=== PATIENT | female | born 1945 | race Caucasian/White ===

== ENCOUNTER 2025-09-26 14:59 | Inpatient (IN) ==
[2025-09-26 15:44] LABS: Hematocrit (blood only) 32.0 % (37.0-47.0); Hemoglobin 10.4 g/dL (12.0-16.0); Immature Granulocytes # (auto) 0.05 K/uL (0.01-0.20); Immature Granulocytes % (auto) 0.4 %; Mean Corpuscular Hemoglobin 30.4 pg (25.0-34.0); Mean Corpuscular Volume 93.6 fL (80.0-100.0); Platelet Count 212 K/uL (130-400); RDW Standard Deviation 60.5 fL (36.4-46.3); Red Blood Count 3.42 M/uL (4.20-5.40); White Blood Count 11.46 K/ul (4.8-10.8)
--- NOTE | 2025-09-26 16:07 | Emergency Department Note ---
Impression & Plan Hypotension, Cellulitis, Weakness, Leukocytosis, Elevated liver enzymes, Elevated troponin, Dialysis patient, Pleural effusion ED Provider Note NAME: KARLA RHODES AGE: 80 SEX: F : 1945 ARRIVES VIA: Walk-In INFORMANT: [Patient][daughters] ED PROVIDER(S): [Max Del Rosario MD] CHIEF COMPLAINT: Dr. Referred HISTORY OF PRESENT ILLNESS: Patient is an 80-year-old female who presents to the ER with diarrhea for a month. In the last several days, she has had foot pain and also some chills. She feels weak. She does attend dialysis Monday and Monday, she did miss today. She was last dialyzed 2 days ago. As the patient was not feeling well, she went to see her family physician. They were concerned about the possibility of sepsis and the patient was sent to our ER for evaluation. Patient does have A-fib and is on Eliquis. She has a history of colon cancer. The family is concerned that she may have recurrence of her cancer with all of her diarrhea. There is no cough or congestion. No chest pain. No complaints of abdominal pain. PMHx/PSHx/Social Hx: See Below PHYSICAL EXAM: GENERAL: Patient is in no acute distress. HEENT: No acute trauma, normocephalic atraumatic, mucous membranes moist, no nasal congestion. NECK: No stridor, no adenopathy, no meningismus, trachea is midline. LUNGS: Clear to auscultation bilaterally, no wheeze, no rhonchi, breath sounds equal. HEART: No obvious murmur, irregular rhythm with a normal rate. ABDOMEN: Soft, nontender, no peritonitis. EXTREMITIES: No cyanosis. There is a foul odor coming from the right foot. The right fifth toe is blackened in color. There is some erythema of the right foot extending up the right leg. The right foot is tender to palpate. NEUROLOGIC: Oriented x 3, no acute motor or sensory deficits, no focal weakness. SKIN: No jaundice, no diaphoresis. DIFFERENTIAL DIAGNOSIS: Sepsis or bacteremia, osteomyelitis, gangrene, electrolyte imbalance, among others. EMERGENCY DEPARTMENT PROCEDURES: Central line placement: This procedure was performed by me. The area for the procedure was cleansed sterilely and prepared for the procedure. Lidocaine was used for anesthesia. Sterile technique was employed. Ultrasound guidance was employed. Using the Seldinger technique, I was able to cannulate the femoral vein. No significant complications. There was no arterial stick during the procedure. All ports did flush well. The line was then sutured into position. MEDICAL DECISION MAKING: There is a mild leukocytosis, this would be consistent with infection. There is a mild anemia present although, this appears to be a chronic issue. There was a normal platelet count. No bandemia. INR was elevated at 2.1. Sodium was low but not in need of emergent correction. There was evidence for an elevated creatinine, this is consistent with her dialysis need. Luckily, the potassium was normal. The patient did have elevated liver enzymes, bilirubin was 3.4. No evidence for pancreatitis. ECG showed atrial fibrillation, no obvious ischemia. Cardiac enzyme testing is mildly elevated, this could be consistent with mismatch, her renal disease or potentially cardiac injury. Right foot CT scan did not show any osteomyelitis or gas within the soft tissues. Chest x-ray showed a large right pleural effusion. On exam, the patient was somewhat hypotensive and mildly tachycardic. She had a right lower extremity cellulitis. Patient was a very difficult IV stick. I did place a right femoral triple-lumen central line. Patient was given a 500 cc saline bolus. No additional saline was given despite her persistent hypotension as, she was at risk for heart failure given her dialysis need and the missed dialysis treatment today. Because of the persistent hypotension, she was placed on a norepinephrine drip. She received IV cefepime and IV daptomycin as antibiotic coverage. The patient appears to have sepsis from a right lower extremity cellulitis/infection. Her presentation is complicated by her dialysis need. She is going require further care within the hospital. Currently, as she is on a norepinephrine drip, I do think she requires ICU care. I did speak with the ICU attending, the patient was accepted to their floor. I spoke with the patient and family, I did speak with case management, the on- call hospitalist was consulted. Prior/Outside records/notes reviewed: None ECG per my interpretation: Indication was presumed sepsis. The ECG shows atrial fibrillation with a rate of 110. There is some baseline artifact. No obvious ST elevation, no PVCs. There is potential old septal infarct. QTc was 503. Continuous Cardiac Monitoring per my interpretation: An order was placed for continuous cardiac monitoring. The monitor shows a rate of 106 with atrial fibrillation. Imaging/x-ray results per my interpretation: Chest x-ray shows a large right pleural effusion. No CHF. Chronic Medical/Social conditions affecting care: Advanced age, on Eliquis, history of dialysis 3 times per week. Care/Management discussed with: Case management and the on-call hospitalist. ICU attending-Dr. Martinez Level of care consideration(s): After review of the information above and other included data: --I believe the patient requires escalation of care to admission Critical Care Note: I have personally spent 42 minutes of critical care time in the direct management of this patient. This includes bedside care, interpretation of diagnostic studies, and testing, discussion with consultants, patient, and family members, and other required patient management activities. This 42 minutes is in excess of all separately billable procedures. DISPOSITION: Admission Past Med/Surg History Problem List Pleural effusion (Acute) Dialysis patient (Acute) Elevated troponin (Acute) Elevated liver enzymes (Acute) Leukocytosis (Acute) Weakness (Acute) Cellulitis (Acute) Hypotension (Acute) Pleural effusion Shock Type 2 myocardial infarction due to shock Coagulopathy Hyperbilirubinemia Sepsis with multiple organ dysfunction (MOD) Severe sepsis Hydrothorax Toe necrosis 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 Hyperlipidemia Gout due to renal impairment Type II diabetes mellitus with peripheral angiopathy Atrial fibrillation ESRD on hemodialysis Medical History Closed left hip fracture Colon cancer COVID-19 Surgical History (Updated 09/26/25 @ 19:34 by Cristino Martins DO) History of repair of left hip joint History of partial colectomy Social History Smoking Status: Unknown if ever smoked Hx Alcohol Use: No Hx Substance Use: No Preferred Language: Turkish Communication Ability: Effective Dental Financial Coordinator Required: No Beliefs That Will Affect Care: None Current Living Situation: Spouse Feels Safe at Home: Yes Assistive Devices: Denture - Upper, Denture - Lower, Glasses and Walker Allergies Allergies Allergy/AdvReac Type Severity Reaction Status Date / Time No Known Allergies Allergy Verified 09/26/25 17:35 Home Meds Home Medications Medication Instructions Recorded Confirmed allopurinol 100 mg tablet 100 mg PO QAM 09/26/25 09/26/25 apixaban 5 mg tablet (Eliquis) 2.5 mg PO BID 09/26/25 09/26/25 cholecalciferol (vitamin D3) 25 25 mcg PO DAILY 09/26/25 09/26/25 mcg (1,000 unit) capsule (Vitamin D3) levothyroxine 75 mcg tablet 75 mcg PO DAILYBB 09/26/25 09/26/25 metoprolol tartrate 25 mg tablet 25 mg PO BID 09/26/25 09/26/25 simvastatin 40 mg tablet 40 mg PO QPM 09/26/25 09/26/25 sitagliptin phosphate 25 mg tablet 25 mg PO QAM 09/26/25 09/26/25 (Tasneem) Results & Data (ED) Vital Signs Vital Signs - 24 hr 09/26/25 15:05 09/26/25 15:34 09/26/25 15:50 Temperature 36.7 C Temperature Source Temporal Artery Scan Pulse Rate 75 99 H 98 H Pulse Rate [Apical] Respiratory Rate 18 11 L Respiratory Effort / Characteristics Non-Labored Spontaneous Respiratory Depth Normal Respiratory Pattern Regular Blood Pressure 94/46 L Blood Pressure [Left Arm] Blood Pressure Mean 62 Blood Pressure Mean [Left Arm] Blood Pressure Position [Left Arm] Pulse Oximetry 97 Oxygen Delivery Method Room Air Sepsis Recent Fever Within 48 Hours No Sepsis New/Unexplained Change in Mental Status N/A Sepsis Action Taken by Nursing No Action Required 09/26/25 17:01 09/26/25 17:24 09/26/25 17:30 Temperature Temperature Source Pulse Rate 100 H Pulse Rate [Apical] 94 H Respiratory Rate 27 H 26 H Respiratory Effort / Characteristics Spontaneous Respiratory Depth Respiratory Pattern Blood Pressure 77/53 L 80/41 L Blood Pressure [Left Arm] 81/48 L Blood Pressure Mean 61 66 Blood Pressure Mean [Left Arm] 59 Blood Pressure Position [Left Arm] Lying Pulse Oximetry 95 Oxygen Delivery Method Room Air Sepsis Recent Fever Within 48 Hours Sepsis New/Unexplained Change in Mental Status Sepsis Action Taken by Nursing 09/26/25 17:30 09/26/25 17:45 09/26/25 19:00 Temperature Temperature Source Pulse Rate 103 H 84 Pulse Rate [Apical] 84 Respiratory Rate 23 19 27 H Respiratory Effort / Characteristics Spontaneous Respiratory Depth Respiratory Pattern Blood Pressure 80/41 L 88/55 L Blood Pressure [Left Arm] 97/56 L Blood Pressure Mean 54 66 Blood Pressure Mean [Left Arm] 69 Blood Pressure Position [Left Arm] Lying Pulse Oximetry Oxygen Delivery Method Sepsis Recent Fever Within 48 Hours Sepsis New/Unexplained Change in Mental Status Sepsis Action Taken by [facility] Medications Current Medication List: was personally reviewed by me Laboratory Data Attestation: I reviewed the patient's lab results. 09/26/25 15:27 09/26/25 20:32 Lab Results 09/26/25 09/26/25 Range/Units 15:27 16:11 WBC 11.46 H (4.8-10.8) K/ul RBC 3.42 L (4.20-5.40) M/uL Hgb 10.4 L (12.0-16.0) g/dL Hct 32.0 L (37.0-47.0) % MCV 93.6 (80.0-100.0) fL MCH 30.4 (25.0-34.0) pg MCHC 32.5 (32.0-36.0) g/dL RDW Std Deviation 60.5 H (36.4-46.3) fL RDW Coeff of Leilani 18.1 H (11.5-14.5) % Plt Count 212 (130-400) K/uL MPV 11.8 (9.4-12.4) fL Immature Gran % (Auto) 0.4 % Neut % (Auto) 79.3 % Lymph % (Auto) 10.6 % Aiken % (Auto) 8.8 % Eos % (Auto) 0.4 % Baso % (Auto) 0.5 % Neut # (Auto) 9.07 H (1.40-6.50) K/uL Lymph # (Auto) 1.22 (1.20-3.40) K/uL Aiken # (Auto) 1.01 H (0.11-0.59) K/uL Eos # (Auto) 0.05 (0.00-0.50) K/uL Baso # (Auto) 0.06 (0.00-0.20) K/uL Immature Gran # (Auto) 0.05 (0.01-0.20) K/uL PT 21.5 H (9.0-12.0) Seconds INR 2.1 H (0.9-1.1) APTT 37 H (21-31) Seconds PTT Ratio 1.4 Sodium Cancelled 131 L Potassium Cancelled 4.1 Chloride Cancelled 97 L Carbon Dioxide Cancelled 26 Anion Gap Cancelled 8 BUN Cancelled 12 Creatinine Cancelled 5.22 H* Est Cr Clr Drug Dosing Cancelled 7.4 eGFR Cancelled 7.84 BUN/Creatinine Ratio Cancelled 2.3 L Glucose Cancelled 54 L Lactate 1.7 (0.4-2.0) mmol/L Calcium Cancelled 8.8 Phosphorus 3.8 (2.5-4.9) mg/dl Magnesium 1.8 (1.7-2.4) mg/dl Total Bilirubin Cancelled 3.4 H Direct Bilirubin 1.4 H (0-0.2) mg/dl AST Cancelled 62 H ALT Cancelled 21 Alkaline Phosphatase Cancelled 139 H Troponin I High Sens 59.1 H* (0-14) pg/ml Total Protein Cancelled 7.2 Albumin Cancelled 2.8 L Globulin Cancelled 4.4 H Albumin/Globulin Ratio Cancelled 0.6 L Lipase Cancelled 10 L Administered Medications Norepinephrine Bitartrate (Levophed/D5w) 4 mg in 250 mls @ 36.015 mls/hr IV .Q6H57M [facility]; Protocol Stop: 10/26/25 18:44 Last Titration: 09/27/25 01:09 Dose: 0.16 mcg/kg/min, 41.2 mls/hr Documented By: TP Co-signed By: ESG Titration: 09/26/25 23:34 Dose: 0.14 mcg/kg/min, 36 mls/hr Documented By: TP Co-signed By: ESG Titration: 09/26/25 21:33 Dose: 0.12 mcg/kg/min, 30.9 mls/hr Documented By: TP Co-signed By: ESG Titration: 09/26/25 19:36 Dose: 0.1 mcg/kg/min, 25.7 mls/hr Documented By: RICHARD Co-signed By: BS Titration: 09/26/25 19:14 Dose: 0.07 mcg/kg/min, 18 mls/hr Documented By: kmc Co-signed By: RICHARD Admin: 09/26/25 18:38 Dose: 0.05 mcg/kg/min, 12.9 mls/hr Documented By: cr Co-signed By: KEVIN Vasopressin 20 units/ Sodium (Chloride) 101 mls @ 12.12 mls/hr IV .Q8H20M MARIANELA Stop: 10/27/25 00:14 Last Admin: 09/27/25 00:25 Dose: 0.04 unit/min, 12.1 mls/hr Documented By: TP Co-signed By: ANA Miscellaneous (Icu Protocol For Hyperglycemia) 1 each N/A ACHS MARIANELA Stop: 09/28/25 20:59 Last Admin: 09/26/25 21:24 Dose: 1 each Documented By: TP Simvastatin (Simvastatin 40 Mg Tab) 40 mg PO QPM MARIANELA Stop: 10/26/25 20:59 Last Admin: 09/26/25 21:17 Dose: Not Given Documented By: TP Discontinued Medications Dextrose (Dextrose 50% 50 Ml Syringe) Confirm Administered Dose 50 ml IV .STK- MED ONE Stop: 09/26/25 21:23 Last Admin: 09/26/25 21:41 Dose: Not Given Documented By: TP Dextrose (Dextrose 50% 50 Ml Syringe) 50 ml IV ONCE ONE Stop: 09/26/25 21:24 Last Admin: 09/26/25 21:23 Dose: 50 ml Documented By: TP Cefepime HCl (Maxipime 2000mg) 2,000 mg in 20 mls @ 5 mls/min IV NOW STA; Protocol Stop: 09/26/25 15:57 Last Admin: 09/26/25 17:31 Dose: 5 mls/min Documented By: cr Sodium Chloride (Nss) 1,000 mls @ 999 mls/hr IV .Q1H1M ONE Stop: 09/26/25 16:54 Last Admin: 09/26/25 17:37 Dose: Not Given Documented By: KEVIN Sodium Chloride (Nss) 500 mls @ 999 mls/hr IV .Q31M ONE Stop: 09/26/25 16:33 Last Infusion: 09/26/25 18:49 Dose: Infused Documented By: cr Admin: 09/26/25 17:32 Dose: 999 mls/hr Documented By: cr Daptomycin 475 mg/ Syringe 9.5 mls @ 4.75 mls/min IV NOW ONE; Protocol Stop: 09/26/25 17:49 Last Admin: 09/26/25 18:42 Dose: 4.75 mls/min Documented By: [facility] [place]comycin HCl (Vancomycin Hcl / Nss) 1,000 mg in 270 mls @ 200 mls/hr IV 2100 MARIANELA Stop: 09/26/25 23:59 Last Infusion: 09/26/25 22:39 Dose: Infused Documented By: Admin: 09/26/25 21:18 Dose: 200 mls/hr Documented By: TP Albumin Human (Albumin 5%) 250 mls @ 500 mls/hr IV ONE ONE Stop: 09/26/25 21:41 Last Infusion: 09/26/25 22:01 Dose: Infused Documented By: Admin: 09/26/25 21:31 Dose: 500 mls/hr Documented By: TP Sodium Chloride (Nss) 250 mls @ 999 mls/hr IV .Q16M ONE Stop: 09/26/25 23:17 Last Infusion: 09/26/25 23:16 Dose: Infused Documented By: Admin: 09/26/25 23:00 Dose: 999 mls/hr Documented By: TP Miscellaneous (Stat Iv Infusion Titration Per Protocol) 1 each N/A NOW STA Stop: 09/26/25 18:32 Last Admin: 09/26/25 18:42 Dose: 1 each Documented By: [facility] [place] Data Radiologist's Impression: Chest X-Ray 09/26/25 15:53 Clinical History: Sepsis Technique: A frontal view of the chest was obtained Comparison is made to the prior examination dated 10/25/2021 Findings: There is new right mid and lower lung opacity, consistent with atelectasis or a combination of atelectasis and pneumonia. The heart is mildly enlarged. No left pleural effusion or pneumothorax is seen. There is a new large right pleural effusion. There is suspected mild pulmonary edema No fracture is noted. There is a right subclavian vascular stent Impression: 1. Large right pleural effusion with associated right lung atelectasis. Concurrent pneumonia cannot be excluded 2. Cardiomegaly and mild pulmonary edema ACT 112: Positive. There are findings on this exam that require communication between the performing entity and the patient following Patient Test Result Information Act ([place] ACT 112) guidelines. Electronically signed by Dandy Suárez 09-26-2025 7:[address] 09/26/25 16:03 CT of the right foot without contrast Technique: Noncontrast axial images of the right foot. Coronal and sagittal reformatted images made available for review No fractures or dislocations identified on this exam. Advanced degenerative changes of the midfoot and ankle. Diffuse vascular calcifications present. Diffuse soft tissue swelling about the foot. Impression: No acute osseous pathology Degenerative changes of the midfoot and ankle Diffuse vascular calcifications findings may represent small vessel disease in the diabetic patient. Clinical correlation with arterial Doppler ultrasound and pulse exam recommended. Electronically signed by Timbo Evans 09-26-2025 8:21 PM Discharge Plan Visit Data Chief Complaint: Referred by Doctor Stated Complaint: POSSIBLE INFECTION?, BLACK TARRY STOOL ED Provider: Max Del Rosario Discharge Problem: Hypotension, Cellulitis, Weakness, Leukocytosis, Elevated liver enzymes, Elevated troponin, Dialysis patient, Pleural effusion Patient Disposition: Admitted As Inpatient Condition: Serious Discharge Instructions Interventions: ED Discharge Assessment Last Done: 09/26/25 20:00 Discharge Problem: Hypotension Qualifiers: Hypotension type: unspecified hypotension type Qualified Code(s): I95.9 - Hypotension, unspecified Cellulitis Qualifiers: Site of cellulitis: extremity Site of cellulitis of extremity: lower extremity Laterality: right Qualified Code(s): L03.115 - Cellulitis of right lower limb Leukocytosis Qualifiers: Leukocytosis type: unspecified Qualified Code(s): D72.829 - Elevated white blood cell count, unspecified
[2025-09-26] MEDS: CEFEPIME 2000MG 2,000 MG/20 ML SYR IV STA (17:31)
[2025-09-26] MEDS: SODIUM CHLORIDE 0.9% 500 ML IV ONE (17:32)
[2025-09-26] MEDS: SODIUM CHLORIDE 0.9% 1,000 ML IV ONE (17:37)
[2025-09-26 17:53] LABS: Albumin Level 2.8 gm/dl (3.4-5.0); Anion Gap 8.0 (3-11); Bilirubin,Total 3.4 mg/dl (0.2-1.0); Calcium 8.8 mg/dl (8.6-10.3); Carbon Dioxide 26.0 mmol/L (21-32); Chloride 97.0 mmol/L (98-107); Magnesium 1.8 mg/dl (1.7-2.4); Potassium 4.1 mmol/L (3.5-5.1); Sodium 131.0 mmol/L (136-145)
[2025-09-26 17:57] LABS: INR 2.1 (0.9-1.1); Partial Thromboplastin Time 37 Seconds (21-31); Prothrombin Time 21.5 Seconds (9.0-12.0)
[2025-09-26 18:01] LABS: Alanine Aminotransferase 21.0 U/L (7-52); Albumin Globulin Ratio 0.6 (0.9-2); Alkaline Phosphatase 139.0 U/L (34-104); Blood Urea Nitrogen 12.0 mg/dl (6-23); Creatinine Clr Calc Pharmacy 7.4 ml/min; Globulin 4.4 gm/dl (2.5-4.0); Glucose 54.0 mg/dl (70-99(Fasting)); Lipase 10.0 U/L (11-82); Total Protein 7.2 gm/dl (6.0-8.3)
[2025-09-26] MEDS: NOREPINEPHRINE/D5W 4 MG/250 ML PLCT IV SCH (18:38)
[2025-09-26] MEDS: DAPTOmycin 475 MG in SYRINGE 0 ML IV ONE (18:42)
[2025-09-26] MEDS: STAT IV Infusion **Titration per Protocol STA (18:42)
--- NOTE | 2025-09-26 19:25 | XRay Report ---
Clinical History: Sepsis Technique: A frontal view of the chest was obtained Comparison is made to the prior examination dated 10/25/2021 Findings: There is new right mid and lower lung opacity, consistent with atelectasis or a combination of atelectasis and pneumonia. The heart is mildly enlarged. No left pleural effusion or pneumothorax is seen. There is a new large right pleural effusion. There is suspected mild pulmonary edema No fracture is noted. There is a right subclavian vascular stent Impression: 1. Large right pleural effusion with associated right lung atelectasis. Concurrent pneumonia cannot be excluded 2. Cardiomegaly and mild pulmonary edema ACT 112: Positive. There are findings on this exam that require communication between the performing entity and the patient following Patient Test Result Information Act ([place] ACT 112) guidelines. Electronically signed by Dandy Suárez 09-26-2025 7:24 PM
--- NOTE | 2025-09-26 19:28 | History & Physical Report ---
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: Plan In summary this is a an 80-year-old female who presented from their PCPs office by referral found to have severe sepsis with multiple organ dysfunction admitted to the intensive care unit for continued care #Severe Sepsis with MOD // Left 5th toe necrosis // Type II CA secondary to shock // Coagulopathy // Hyperbilirubinemia Notable leukocytosis, tachypnea, presumed hypoxia given the patient's clinical appearance, tachycardia, persistent hypotension; suspected source to primarily be the right fifth toe as further discussed below; does have notable hydrothorax as discussed further below, however underlying pneumonia cannot be excluded though patient does not present with symptoms typical of a community-acquired pneumonia making this less likely; in the emergency department the patient was given a 500 mL liter intravenous fluid bolus though no further fluids were administered given the patient is dependent on hemodialysis for volume control, subsequently was started on norepinephrine - Nursing to notify attending physician of maintained MAP of less than 65 mmHg - Continue with volume resuscitation guided by enterer consultation - Start vancomycin with pharmacy consultation - Start cefepime 2 g IV every 8 hours - Blood cultures pending - Follow daily CMP, CBC with differential, magnesium, phosphorus Additional testing pending including direct bilirubin measure, fibrinogen, troponin trend - Abdominal US pending Pending interpretation of patient's CT foot to guide further consultation needs for definitive management, there is no indication for emergent surgery at this time as the patient's exam is not consistent with necrotizing fasciitis or another life-threatening surgical condition Air Hammer Stripper consulted #Right hydrothorax // Perioral cyanosis Plain film of the patient's chest did reveal right-sided hydrothorax; clinically the patient appears to be hypoxic in the emergency department, unfortunately pulse oximetry is not able to adequately measure the patient's oxygen saturation given the peripheral arterial disease, diminished volume secondary to chronic diarrhea, in addition to their tachycardia Pending CT chest without contrast Maintain O2 saturation greater than 90% if pulse oximetry is able to be established; patient does not have any long-term medical conditions that would require judicious use of oxygen supplementation to avoid hypercapnic respiratory failure #Chronic diarrhea The patient is been struggling with chronic diarrhea for greater than 2 months, resulting in significant intravascular volume depletion; unclear cause at this time, not likely to be infectious given the duration of symptoms; could be related to the patient's allopurinol, but unable to determine the duration of medical treatment with this medication; at this time, primarily focus on supportive care with respect to this, volume resuscitation as above, and further diagnostic testing to follow based on clinical course #ESRD on HD Established on hemodialysis Mondays, Wednesdays, Fridays; not established with a shell sieve operator who practices at this facility Consult nephrology for assistance with scheduling hemodialysis #Type II diabetes mellitus with peripheral angiopathy No recent hemoglobin A1c measure in our system; follow glycemic protocol in ICU; hold home medication regimen A1c level pending History of Present Illness Chief Complaint: Right fifth toe injury Primary Care Provider: NO PCP Ms. Mahmood is an 80-year-old female Whose active medical conditions include end-s tage renal disease established on hemodialysis M/W/F, hypothyroidism, heart failure with preserved ejection fraction and atrial fibrillation, type 2 diabetes mellitus with peripheral angiopathy who presents to the [facility] on 09/26 by referral of their primary care physician due to a significant right toe injury. The patient describes approximately 3 weeks prior to their current presentation they were being evaluated by their wound physician for bilateral lower extremity chronic ulcerations when there was noted to be a laceration along the medial aspect of the left fifth phalange, the physician at that time did not express any significant serum related to this and it remained without any direct management. The next evaluation of this injury took place on the day of pr esentation at her primary care physician's office when it was found to be frankly necrotic. At the time my evaluation the patient denies any pain associated with it. They do not recall any specific injury. The patient also describes chronic diarrhea has been ongoing from greater than 2 months; they were recently evaluated at an emergency department from an outside hospital system that did not yield any significant diagnostic results other than a positive Hemoccult stool per family report. The patient does have a history of colon cancer with previous colon resection in 2014 without any subsequent radiation or adjuvant chemotherapy. The patient at the time of my exam denies any recent hematochezia, melanotic stool, clot passage. They deny any abdominal pain, bloating, early satiety. They do have daily nausea primarily occurring in the morning. This is sometimes associated with a small amount of bilious emesis, but this is infrequent and irregular. The patient also notes feeling acutely short of breath which began on the morning of presentation, it was also noted by her daughter who is present at bedside when she first spoke with the patient today, she was notably dyspneic wi th conversation. The patient denies any recent progressive or sudden onset cough, congestion, hemoptysis, orthopnea, platypnea, lower extremity edema. Allergies Allergy/AdvReac Type Severity Reaction Status Date / Time No Known Allergies Allergy Verified 09/26/25 17:35 Home Medications Medication Instructions Recorded Confirmed Type allopurinol 100 mg tablet 100 mg PO QAM 09/26/25 09/26/25 History apixaban 5 mg tablet (Eliquis) 2.5 mg PO BID 09/26/25 09/26/25 History cholecalciferol (vitamin D3) 25 25 mcg PO DAILY 09/26/25 09/26/25 History mcg (1,000 unit) capsule (Vitamin D3) levothyroxine 75 mcg tablet 75 mcg PO DAILYBB 09/26/25 09/26/25 History metoprolol tartrate 25 mg tablet 25 mg PO BID 09/26/25 09/26/25 History simvastatin 40 mg tablet 40 mg PO QPM 09/26/25 09/26/25 History sitagliptin phosphate 25 mg tablet 25 mg PO QAM 09/26/25 09/26/25 History (Denveruvia) Past Med/Surg History Problem List (Updated 09/26/25 @ 19:42 by Cristino Martins DO) Type 2 myocardial infarction due to shock Coagulopathy Hyperbilirubinemia Sepsis with multiple organ dysfunction (MOD) Severe sepsis Hydrothorax Toe necrosis 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 Hyperlipidemia Gout due to renal impairment Type II diabetes mellitus with peripheral angiopathy Atrial fibrillation ESRD on hemodialysis Medical History (Updated 09/26/25 @ 19:42 by Cristino Martins DO) Closed left hip fracture Colon cancer COVID-19 Surgical History (Updated 09/26/25 @ 19:34 by Peter N Cass, DO) History of repair of left hip joint History of partial colectomy Social History Smoking Status: Former smoker Preferred Language: Nepali Feels Safe at Home: Yes Review of Systems Review of Systems: Review of cardiovascular, pulmonary, constitutional, gastrointestinal, genitourinary, neurologic, musculoskeletal systems was unremarkable except for pertinent positive and negative findings discussed above Physical Exam Physical Exam: General: Elderly female in mild acute distress Vital Signs: Reviewed; mean arterial pressure persistently less than 60 mmHg; heart rate variable in the range of 90 to 110 bpm with irregular RR interval noted on telemetry; pulse oximetry not able to adequately assess oxygen saturation due to inadequate arterial pressure; tachypneic with a respiratory rate in the range of 22-31 RPM HEENT: Scleral icterus; pupils equally round and reactive to light; extraocular motion intact; dry mucous membranes Neck: Flattened jugular veins Pulmonary: Symmetric chest wall excursion without restriction; absent air movement throughout the entire right lung field, air movement is present throughout the left field without associated abnormal lung sounds Cardiovascular: Tachycardic rate with irregular rhythm, murmur present associated with AV fistula without additional murmurs, rubs, or gallops; bilateral radial and posterior tibial pulse 1+; delayed capillary refill in all nailbeds with cool extremities; right brachial AV fistula with palpable thrill and audible bruit; right femoral central venous catheter with some oozing around the access site but otherwise without concerning findings Gastrointestinal: Soft, protuberant; nontender; low-frequency normal pitch bowel sounds throughout Neurologic: Cranial nerves II through XII grossly intact; no discernible focal weakness no paresthesia though with general anasarca Skin: Left fifth phalange E distal of the PIP is frankly necrotic, cool to touch, without tenderness; along the medial aspect there is a linear laceration with coagulated blood without active bleeding; there is extended erythema involving the adjacent fourth toe without tenderness to palpation nor radiating heat; there is no appreciable lymphangitis of the affected extremity; jaundice to the mid chest Results & Data Results & Data Vital Signs (Past 12 Hours) Vital Signs Temp Pulse Pulse Resp BP BP Pulse Ox 09/26/25 19:00 84 27 H 97/56 L 09/26/25 17:45 84 19 88/55 L 09/26/25 17:30 103 H 23 80/41 L 09/26/25 17:30 80/41 L 09/26/25 17:24 100 H 26 H 77/53 L 09/26/25 17:01 94 H 27 H 81/48 L 95 09/26/25 15:50 98 H 09/26/25 15:34 99 H 11 L 09/26/25 15:05 36.7 C 75 18 94/46 L 97 O2 Del Method 09/26/25 19:00 09/26/25 17:45 09/26/25 17:30 09/26/25 17:30 09/26/25 17:24 09/26/25 17:01 Room Air 09/26/25 15:50 09/26/25 15:34 09/26/25 15:05 Room Air Laboratory Results Leukocytosis of 11.46 with a neutrophilic predominance Hemoglobin 10.4 with no previously established baseline available for review PT 21.5, INR 2.1, APTT 37 Relatively unremarkable BMP except for creatinine of 5.22 Total bilirubin 3.4 with direct bilirubin measure pending; AST 62, ALT 21, alkaline phosphatase 139 Lactate 1.7 Initial troponin measure of 59.1 Diagnostic Findings Portable chest film with right-sided hydrothorax, cardiomegaly and vascular congestion CT foot without intravenous contrast is still pending interpretation ECG Additional Comments: Irregular RR interval with rapid rate; leftward axis; difficult to appreciate R wave progression given artifact; no ischemic changes noted consistent with atrial fibrillation with rapid ventricular response Code Status & VTE Plan Code Status Conditional code; no intubation VTE Prophylaxis Plan VTE Prophylaxis will be ordered: No Reason for no VTE drug order: Contraindicated PG Care Time/CCT Total # of Minutes Spent Total Time Spent with Patient: Total time spent is greater than 50% in coordination of care (as documented) at patient's floor/unit and/or counseling patient: Coding Level of Care Code 49941 INT INP/OBS CARE 375MIN Diagnoses Sepsis with multiple organ dysfunction (MOD) A41.9; R65.20 Severe sepsis A41.9; R65.20 Toe necrosis I96 Type 2 myocardial infarction due to shock R57.9; I21.A1 Coagulopathy D68.9 Hyperbilirubinemia E80.6 Hydrothorax J94.8 ESRD on hemodialysis N18.6; Z99.2 Longstanding persistent atrial fibrillation I48.11 Atrial fibrillation type: longstanding persistent Type II diabetes mellitus with peripheral angiopathy E11.51 Mixed hyperlipidemia E78.2 Hyperlipidemia type: mixed hyperlipidemia Chronic gout due to renal impairment without tophus, unspecified site [id number] Gout site: unspecified site Chronicity: chronic 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
--- NOTE | 2025-09-26 19:54 | Critical Care Consultation ---
Date of Consultation September 26, 2025 Assessment & Plan (1) Shock: (2) Type 2 myocardial infarction due to shock: (3) Sepsis with multiple organ dysfunction (MOD): (4) Pleural effusion: (5) Atrial fibrillation: (6) ESRD on hemodialysis: Plan Reason Critically Ill: 80 YOF with ESRD - presents hypotensive with concern of septic shock with multiorgan dysfunction what appears as new right sided pleural effusion, on Eliquis for Afib. Requiring vasopressor support. Neuro - No acute needs CAM ICU: NEGATIVE - Continue with supportive care- follow for ICU delirium or metabolic encephalopathy from shock - Frequent re-orientation, attempt to maintain normal sleep wake cycle Cardiac - Shock with multiorgan dysfunction, Hx: Afib with chronic DOAC, heart murmur, HTN - Shock with multi organ dysfunction- elevated renal function, lungs- oxygen need, heart- vasopressor support and elevated troponin, liver- elevated LFTs - Multifactorial at this time is likely with primary concern for sepsis secondary to foot ulceration- however likely compounded with some hypovolemia with hx of diarrhea and recent decrease oral intake, - She received 1.5L crystalloid in ER- will re-evaluate for volume responsiveness with bedside POCUS, and can consider NICOM- cautious volume resuscitation will be employed with her history of ESRD, and pleural effusion - consider further volume challenge with albumin - Continue with vasopressor support to maintain MAPS > 65 - Lactate negative - Bedside POCUS- without pericardial effusion, squeeze does not appear significantly reduced however limited secondary to technique/machine/ and no comparison, IVC collapsable, LV hyperdynamic, - ECHO in am to eval cardiac function and valve - Troponin elevation likely demand in setting of shock and renal function - ECG without evidence of STEMI - Afib- will hold her Eliquis- until procedural need is identified or completed specifically thoracentesis- last dose 09/26 @1000 am- consider heparin infusion in am. - hold BB while on vasopressors- if rate control needed- will use amiodarone - Consider obtaining HAO on right once erythema decreases and better controlled infection Respiratory - Hypoxic respiratory failure, Pleural effusion - Hypoxic respiratory failure with possibly new right pleural effusion as we have no recent records/imaging on this patient - Right sided pleural effusion with compressive atelectasis - will hold her apixaban at this time as may benefit from not only diagnostic but likely therapeutic thora- moderate to large right sided effusion - Adjust oxygen therapy for Spo2 94% or greater GI - Elevated LFT, Elevated bili, mild ascites, Diarrhea. HX: Colon cancer - resection only - At this time with no recent labs for review or reported history of liver failure/cirrhosis- her AST is 62 Alk Po4 139, tBili- 3.4 - possibly reactive secondary to septic shock or VADIM- she is not encephalopathic - Agree with abdominal ultrasound with Doppler - trend LFTs - abdomen exam is nonacute and lactate is negative RENAL/LYTES - ESRD- anuric on dialysis MWF, - Patient dialysis MWF- dialysis fistula in RUE with good thrill and bruit - will need to follow closely as if she requires dialysis- will be dependant on her vasopressor need and BP- currently volume status appears acceptable, electrolytes acceptable, and HCO3 acceptable - Renal dose medications - anuric no acute need ENDO - no acute need- HX DMII - ICU hyperglycemic protocol goal <180mg/dl HEME - Chronic use of anticoagulation, HX: Colon cancer - as above- hold Eliquis- consider heparin in meantime for stroke prevention - Colon cancer history with resection- reports last colonoscopy was ~5 years ago- with diarrhea, reported (+) Hemoccult, and other GI symptoms related to loss of appetite and other associated GI symptoms - consider GI follow up as outpatient vs. inpatient based on progression or need ID - Septic shock can't be excluded - presumed source at this time- RLE toe vs soft tissue skin - blood cultures pending - wound care consult pending - ortho/surgical consult pending CT of foot - Cefepime/Vancomycin current - should be adequate at this time until clinical course and cultures become more clear - PCT - send although may be difficult to interpret in ESRD LINES/IV ACCESS - RIGHT FEM CVL- placed in ER sterile- continue DVT PROPHYLAXIS - SCDS, Heparin infusion DISPO: ICU while on vasopressor needs I have personally spent 50 minutes of critical care time in the direct management of this patient. This is a life/limb threatening event. This includes time spent evaluating patient, direct bedside care, chart review, placing orders, interpretation of diagnostic studies, discussion with consultants, patient, and family members, as well as other required patient management activities. This time is exclusive of all separately billable procedures, and teaching time and separate from and in addition to any other critical care service time. Thank you for allowing us to participate in the care of this patient. Please refer to my attending physician's documentation for any further recommendations. History of Present Illness Reason for Consultation: shock requiring vasopressors Requesting Physician: Cristino Maritns DO Attending Physician: Cristino Martins DO History of Present Illness 80 YOF with no medical records available for our review in our current EMR. Patient normally seen through [facility] system. She has medical history of: Colon cancer with resection (2014), ESRD on Dialysis (MWF), Afib (on eliquis), HTN, Hypothyroidism, DMII, Arthritis, heart murmur. Patient came to the ER today for concerns of infected toe on her right foot, she is not a great historian however, she is accompanied by her 2 daughters who help with information gathering. They report that a few weeks ago the patient had a "scratch in between her little toe and 4th toe", reports that "she followed up with wound care and did not receive abx, told to keep it clean and dry." The patient notes worsening of the 5th toe over the past few days to it now being mays black and bloody, as well as increased pain and redness and associated fevers and chills over past 24 hours. She also reports that she has been experiencing diarrhea for the past 3-4 months that is associated with early satiety, nausea in the morning and occasional emesis. She noted blood on the toilet paper at times but not in the toilet. Family states she was evaluated at [facility] with imaging that was reported "normal", but reported (+) Hemoccult testing. It has been 5 years since her last colonoscopy. In the ER the patient had routing blood work completed, CXR, Foot CT scan, blood cultures obtained. She was noted to have poor IV access and be hypotensive on arrival. Ligia was given 1.5 L of crystalloid, lactate was noted to be negative, she continued to remain hypotensive, had a RIGHT femoral vein central line inserted by ER and was then initiated on LEVOphed. ICU was consulted as patient is requiring vasopressor support. Patient was evaluated in the ER room B3. She is awake no apparent distress, warm and dry, peripheral pulses palpable. No drainage or pain out of proportion to her RIGHT foot, but is with ascending errythema. Mucous membranes are dry, she makes no urine. Patient will be brought to the ICU for continued hemodynamic support and continued resuscitation. CODE: CONDITIONAL- NO INTUBATION Allergies Allergy/AdvReac Type Severity Reaction Status Date / Time No Known Allergies Allergy Verified 09/26/25 17:35 Home Medications Medication Instructions Recorded Confirmed Type allopurinol 100 mg tablet 100 mg PO QAM 09/26/25 09/26/25 History apixaban 5 mg tablet (Eliquis) 2.5 mg PO BID 09/26/25 09/26/25 History cholecalciferol (vitamin D3) 25 25 mcg PO DAILY 09/26/25 09/26/25 History mcg (1,000 unit) capsule (Vitamin D3) levothyroxine 75 mcg tablet 75 mcg PO DAILYBB 09/26/25 09/26/25 History metoprolol tartrate 25 mg tablet 25 mg PO BID 09/26/25 09/26/25 History simvastatin 40 mg tablet 40 mg PO QPM 09/26/25 09/26/25 History sitagliptin phosphate 25 mg tablet 25 mg PO QAM 09/26/25 09/26/25 History (Tasneem) Patient History Medical History Closed left hip fracture Colon cancer COVID-19 Surgical History (Updated 09/26/25 @ 19:34 by Cristino Martins DO) History of repair of left hip joint History of partial colectomy Social History Smoking Status: Unknown if ever smoked Hx Alcohol Use: No Hx Substance Use: No Preferred Language: Romanian Communication Ability: Effective Comic Writer Required: No Beliefs That Will Affect Care: None Current Living Situation: Spouse Feels Safe at Home: Yes Assistive Devices: Denture - Upper, Denture - Lower, Glasses and Walker Review of Systems Review of Systems: REVIEW OF SYSTEMS: Constitutional: (+)fever, sweats or chills Eyes: No diplopia, no worsening or blurred vision ENT: normal hearing, no trouble swallowing Respiratory: No cough, sputum, dyspnea at rest or on exertion Cardiovascular: No chest pain, tightness or palpitations Abdomen: (+) nausea, vomiting, diarrhea, No pain, or constipation Musculoskeletal: (+) right 5th toe dusky, swollen, joint pain, erythema, Neurologic: No weakness, numbness/tingling, or balance problems Physical Exam Physical Exam: PHYSICAL EXAM: General: awake, alert, no apparent distress Head: Normocephalic, atraumatic ENT: PERRLA, EOMI, no pharyngeal exudate, mucous membranes dry Neuro: AAO x 3, speech clear and appropriate, strength intact bilaterally 5/5, sensation intact and equal all extremities , no pronator drift Chest: equal rise and fall of the chest, no accessory muscle use, no heaves or thrills, decreased in bases RT > LT Cardiac: irregular rate and rhythm, telemetry reviewed- afib no ectopy, skin warm dry, cap refill <3 seconds, peripheral pulses +2 no JVD, systolic murmur, no edema GI: NABS x 4 quadrants, soft, nontender to palpation, no rebound, guarding or tenderness : ESRD anuric Psych: Normal mood and affect Skin: (+) right 5th toe dusky, swollen, blood in between toes and blister on la teral edge Results & Data Results & Data Vital Signs (Past 12 Hours) Vital Signs Temp Pulse Pulse Resp BP BP Pulse Ox 09/26/25 19:30 97 H 19 84/60 L 93 09/26/25 19:00 84 27 H 97/56 L 09/26/25 17:45 84 19 88/55 L 09/26/25 17:30 103 H 23 80/41 L 09/26/25 17:30 80/41 L 09/26/25 17:24 100 H 26 H 77/53 L 09/26/25 17:01 94 H 27 H 81/48 L 95 09/26/25 15:50 98 H 09/26/25 15:34 99 H 11 L 09/26/25 15:05 36.7 C 75 18 94/46 L 97 O2 Del Method 09/26/25 19:30 09/26/25 19:00 09/26/25 17:45 09/26/25 17:30 09/26/25 17:30 09/26/25 17:24 09/26/25 17:01 Room Air 09/26/25 15:50 09/26/25 15:34 09/26/25 15:05 Room Air Laboratory Results Abnormal lab results 09/26/25 09/26/25 Range/Units 15:27 16:11 WBC 11.46 H (4.8-10.8) K/ul RBC 3.42 L (4.20-5.40) M/uL Hgb 10.4 L (12.0-16.0) g/dL Hct 32.0 L (37.0-47.0) % RDW Std Deviation 60.5 H (36.4-46.3) fL RDW Coeff of Leilani 18.1 H (11.5-14.5) % Neut # (Auto) 9.07 H (1.40-6.50) K/uL [place] # (Auto) 1.01 H (0.11-0.59) K/uL PT 21.5 H (9.0-12.0) Seconds INR 2.1 H (0.9-1.1) APTT 37 H (21-31) Seconds Sodium 131 L (136-145) mmol/L Chloride 97 L (98-107) mmol/L Creatinine 5.22 H* (0.6-1.2) mg/dl BUN/Creatinine Ratio 2.3 L (10-20) Glucose 54 L (70-99(Fasting)) mg/dl Total Bilirubin 3.4 H (0.2-1.0) mg/dl AST 62 H (13-39) U/L Alkaline Phosphatase 139 H (34-104) U/L Troponin I High Sens 59.1 H* (0-14) pg/ml Albumin 2.8 L (3.4-5.0) gm/dl Globulin 4.4 H (2.5-4.0) gm/dl Albumin/Globulin Ratio 0.6 L (0.9-2) Lipase 10 L (11-82) U/L Diagnostic Findings Chest X-Ray 09/26/25 15:53 Clinical History: Sepsis Technique: A frontal view of the chest was obtained Comparison is made to the prior examination dated 10/25/2021 Findings: There is new right mid and lower lung opacity, consistent with atelectasis or a combination of atelectasis and pneumonia. The heart is mildly enlarged. No left pleural effusion or pneumothorax is seen. There is a new large right pleural effusion. There is suspected mild pulmonary edema No fracture is noted. There is a right subclavian vascular stent Impression: 1. Large right pleural effusion with associated right lung atelectasis. Concurrent pneumonia cannot be excluded 2. Cardiomegaly and mild pulmonary edema ACT 112: Positive. There are findings on this exam that require communication between the performing entity and the patient following Patient Test Result Information Act ([place] ACT 112) guidelines. Electronically signed by Dandy Suárez 09-26-2025 7:24 PM Medications Administered Home Medications allopurinol 100 mg tablet 100 mg PO QAM 09/26/25 [History Confirmed 09/26/25] apixaban 5 mg tablet (Eliquis) 2.5 mg PO BID 09/26/25 [History Confirmed 09/26/25] cholecalciferol (vitamin D3) 25 mcg (1,000 unit) capsule (Vitamin D3) 25 mcg PO DAILY 09/26/25 [History Confirmed 09/26/25] levothyroxine 75 mcg tablet 75 mcg PO DAILYBB 09/26/25 [History Confirmed 09/26/25] metoprolol tartrate 25 mg tablet 25 mg PO BID 09/26/25 [History Confirmed 09/26/25] simvastatin 40 mg tablet 40 mg PO QPM 09/26/25 [History Confirmed 09/26/25] sitagliptin phosphate 25 mg tablet (Januvia) 25 mg PO QAM 09/26/25 [History Confirmed 09/26/25] Active Medications Norepinephrine Bitartrate (Levophed/D5w) 4 mg in 250 mls @ 12.863 mls/hr IV .[id number] [facility]; Protocol Stop: 10/26/25 18:44 Last Titration: 09/26/25 19:36 Dose: 0.1 mcg/kg/min, 25.7 mls/hr ECG Additional Comments: Atrial fibrillationwith rapid ventricular response Right axis deviation Pulmonary disease pattern PossibleRight ventricular hypertrophy Septal infarct, age undetermined Abnormal ECG When compared with ECG [id number] 16:36, Significant changes have occurred Coding Level of Care Code 78642 CRITICAL CARE 1ST 30-74M Diagnoses Shock R57.9 Type 2 myocardial infarction due to shock R57.9; I21.A1 Sepsis with multiple organ dysfunction (MOD) A41.9; R65.20 Pleural effusion J90 Longstanding persistent atrial fibrillation I48.11 Atrial fibrillation type: longstanding persistent ESRD on hemodialysis N18.6; Z99.2 (5) Atrial fibrillation Atrial fibrillation type: longstanding persistent Qualified Code(s): I48.11 - Longstanding persistent atrial fibrillation
[2025-09-26 20:17] LABS: Fibrinogen 239 mg/dl (184-400)
--- NOTE | 2025-09-26 20:22 | CT Scan Report ---
CT of the right foot without contrast Technique: Noncontrast axial images of the right foot. Coronal and sagittal reformatted images made available for review No fractures or dislocations identified on this exam. Advanced degenerative changes of the midfoot and ankle. Diffuse vascular calcifications present. Diffuse soft tissue swelling about the foot. Impression: No acute osseous pathology Degenerative changes of the midfoot and ankle Diffuse vascular calcifications findings may represent small vessel disease in the diabetic patient. Clinical correlation with arterial Doppler ultrasound and pulse exam recommended. Electronically signed by Timbo Evans 09-26-2025 8:21 PM
[2025-09-26] MEDS ORDERED: VANCOMYCIN CONSULT ACTIVE PRN (20:28)
--- NOTE | 2025-09-26 20:33 | CT Scan Report ---
CT of the chest without contrast Technique:Noncontrast axial images of the chest. Coronal and sagittal reformatted images made available for review Images made to prior plain film performed earlier on the same date Findings: Large right pleural effusion with compressive atelectasis of the right upper and lower lobes. The right middle lobe is completely collapsed. There is likely a accounts for the appearance of the chest x-ray. Left lung is clear. Cardiomegaly. Trace pericardial effusion. Aortic valvular calcifications. Coronary artery calcifications. Minimal intra-abdominal ascites incompletely evaluated this exam. Impression Large right pleural effusion with associated atelectasis of the right middle lower and upper lobes. Intra-abdominal ascites Electronically signed by Timbo Evans 09-26-2025 8:33 PM
[2025-09-26 20:58] LABS: Anion Gap 10.0 (3-11); Calcium 8.8 mg/dl (8.6-10.3); Carbon Dioxide 24.0 mmol/L (21-32); Chloride 97.0 mmol/L (98-107); Potassium 4.3 mmol/L (3.5-5.1); Sodium 131.0 mmol/L (136-145)
[2025-09-26 21:08] LABS: Blood Urea Nitrogen 14.0 mg/dl (6-23); Creatinine Clr Calc Pharmacy 7.1 ml/min; Glucose 60.0 mg/dl (70-99(Fasting))
[2025-09-26] MEDS: SIMVASTATIN 40 MG TAB PO SCH (21:17)
[2025-09-26] MEDS: VANCOMYCIN HCL / NSS 1,000 MG/270 ML BAG IV SCH (21:18)
[2025-09-26] MEDS: DEXTROSE 50% 50 ML SYRINGE IV ONE ×2 (21:23→21:41)
[2025-09-26] MEDS: ALBUMIN 5% 250 ML IV ONE (21:31)
[2025-09-26 22:39] LABS: Hemoglobin A1C 4.1 % (4.5-5.6)
--- NOTE | 2025-09-26 22:50 | Ultrasound Report ---
Exam(s): US ABDOMEN LIMITED EXAM: US Abdomen Limited, Right Upper Quadrant CLINICAL HISTORY: Reason for exam: Hyperbilirubinemia. OTHER: Other Notes: Hyperbilirubinemia. TECHNIQUE: Real-time ultrasound of the right upper quadrant with image documentation. COMPARISON: No relevant prior studies available. FINDINGS: Liver: The liver is mildly echogenic suggesting fatty infiltration. No focal liver mass lesion is seen. Portal vein is patent with normal hepatopetal flow. The liver measures 14 cm. There is a lobular liver surface. No intrahepatic bile duct dilation. Gallbladder: Gallbladder is not visible. Common bile duct: The common bile duct is mildly dilated measuring 10 mm. No choledocholithiasis is seen. Pancreas: The visualized portions of the pancreas is unremarkable. Right kidney: Obscured. Inferior vena cava: The IVC is unremarkable. Free fluid: Small amount of fluid surrounding the liver suggesting ascites. IMPRESSION: 1. Small amount of fluid surrounding the liver suggesting ascites. 2. The common bile duct is mildly dilated measuring 10 mm. No choledocholithiasis is seen. 3. Gallbladder is not visible. Shadowing in the expected location of the gallbladder could represent bowel versus stone laden gallbladder. Consider CT for further characterization. Electronically signed by: Nikko Farooq MD 09/26/25 22:49 PM
[2025-09-26] MEDS: SODIUM CHLORIDE 0.9% 250 ML IV ONE (23:00)
[2025-09-26] MEDS ORDERED: STAT IV Infusion **Titration per Protocol STA (23:51)
[2025-09-27] MEDS: VASOPRESSIN 20 UNITS in SODIUM CHLORIDE 0.9% 100 ML IV SCH (00:25)
[2025-09-27] MEDS: CEFEPIME 2000MG 2,000 MG/20 ML SYR IV SCH (02:37)
[2025-09-27 04:28] LABS: Hematocrit (blood only) 28.3 % (37.0-47.0); Hemoglobin 9.2 g/dL (12.0-16.0); Immature Granulocytes # (auto) 0.05 K/uL (0.01-0.20); Immature Granulocytes % (auto) 0.4 %; Mean Corpuscular Hemoglobin 30.6 pg (25.0-34.0); Mean Corpuscular Volume 94.0 fL (80.0-100.0); Platelet Count 227 K/uL (130-400); RDW Standard Deviation 61.1 fL (36.4-46.3); Red Blood Count 3.01 M/uL (4.20-5.40); White Blood Count 12.82 K/ul (4.8-10.8)
[2025-09-27 04:44] LABS: Alanine Aminotransferase 22.0 U/L (7-52); Albumin Level 3.0 gm/dl (3.4-5.0); Alkaline Phosphatase 133.0 U/L (34-104); Bilirubin,Total 3.6 mg/dl (0.2-1.0); Magnesium 1.8 mg/dl (1.7-2.4); Total Protein 7.4 gm/dl (6.0-8.3)
[2025-09-27 05:01] LABS: INR 2.2 (0.9-1.1); Partial Thromboplastin Time 40 Seconds (21-31); Prothrombin Time 22.5 Seconds (9.0-12.0)
[2025-09-27] MEDS: LEVOTHYROXINE SODIUM 75 MCG TABLET PO SCH (06:22)
[2025-09-27 06:48] LABS: Anion Gap 12.0 (3-11); Calcium 8.7 mg/dl (8.6-10.3); Carbon Dioxide 22.0 mmol/L (21-32); Chloride 97.0 mmol/L (98-107); Potassium 4.3 mmol/L (3.5-5.1); Sodium 131.0 mmol/L (136-145)
[2025-09-27 06:55] LABS: Blood Urea Nitrogen 16.0 mg/dl (6-23); Creatinine Clr Calc Pharmacy 7.0 ml/min; Glucose 103.0 mg/dl (70-99(Fasting))
--- NOTE | 2025-09-27 07:18 | Hospitalist Progress Note ---
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: Plan In summary this is a an 80-year-old female who presented from their PCPs office by referral found to have severe sepsis with multiple organ dysfunction admitted to the intensive care unit for continued care #Severe Sepsis with MOD // Left 5th toe necrosis // Type II PA secondary to shock // Coagulopathy // Hyperbilirubinemia Presented with leukocytosis, tachypnea, presumed hypoxia given the patient's clinical appearance, tachycardia, persistent hypotension; suspected source to primarily be the right fifth toe as further discussed below; does have notable hydrothorax as discussed further below, underlying pneumonia cannot be excluded though patient does not present with symptoms typical of a community-acquired pneumonia making this less likely; in the emergency department the patient was given a 500 mL liter intravenous fluid bolus though no further fluids were administered given the patient is dependent on hemodialysis for volume control, subsequently was started on norepinephrine; troponin trend steady, not suggestive of a severe myocardial injury; fibrinogen measure was unremarkable, not consistent with DIC; ESR and CRP elevated, perhaps consequential of the patient's ESRD but acute infectious inflammatory processes involving their toe and biliary tree cannot be excluded - Nursing to notify attending physician of maintained MAP of less than 65 mmHg - Continue with volume resuscitation guided by senior center director consultation - Continue vancomycin with pharmacy consultation - Continue cefepime 2 g IV every 8 hours - Blood cultures pending - Follow daily CMP, CBC with differential, magnesium, phosphorus, coagulation panel - Abdominal US with findings concerning of choledocholithiasis, but unable to fully assess the gallbladder; MRCP pending 09/27 CT foot without evidence of osteomyelitis; MRI foot pending 09/27 Home Therapy Teacher consulted #Right hydrothorax // Perioral cyanosis // Persistent hypoxia Plain film of the patient's chest did reveal right-sided hydrothorax in the ED; CT chest confirmed large right pleural effusion Maintain O2 saturation greater than 90% if pulse oximetry is able to be established; patient does not have any long-term medical conditions that would require judicious use of oxygen supplementation to avoid hypercapnic respiratory failure #Chronic diarrhea The patient is been struggling with chronic diarrhea for greater than 2 months, resulting in significant intravascular volume depletion; unclear cause at this time, not likely to be infectious given the duration of symptoms; could be related to the patient's allopurinol, but unable to determine the duration of medical treatment with this medication; at this time, primarily focus on supportive care with respect to this, volume resuscitation as above, and further diagnostic testing to follow based on clinical course #ESRD on HD Established on hemodialysis Mondays, Wednesdays, Fridays; not established with a imaging scheduler who practices at this facility Consult nephrology for assistance with scheduling hemodialysis #Type II diabetes mellitus with peripheral angiopathy HbA1c 4.1%, suggestive of usp hypoglycemia; could be factitious with the patient's anemia, but this is not common; the patient does have elevated bilirubin, but no other findings at this time to suggest hemolysis which could also cause a factitiously low A1c measure; follow glycemic protocol in ICU; hold home medication regimen #Atrial fibrillation, permanent Chronic condition; holding Eliquis in the setting of coagulopathy and possible thoracentesis Admission and Anticipated Discharge Date Admission Date: September 26, 2025 Subjective Ms. Mahmood is an 80-year-old female Whose active medical conditions include end-stage renal disease established on hemodialysis M/W/F, hypothyroidism, heart failure with preserved ejection fraction and atrial fibrillation, type 2 diabetes mellitus with peripheral angiopathy who presents to the [facility] on 09/26 by referral of their primary care physician due to a significant right toe injury. No acute overnight events; reports improved appetite this morning; minimal pain of her right fifth toe Review of Systems Review of Systems: Review of cardiovascular, pulmonary, constitutional, gastrointestinal, genitourinary, neurologic, musculoskeletal systems was unremarkable except for pertinent positive and negative findings discussed above Physical Exam Physical Exam: General: Elderly female in mild acute distress Vital Signs: Reviewed; mean arterial pressure in the range of 70-85 mmHg; heart rate variable in the range of 90 to 110 bpm with irregular RR interval noted on telemetry; pulse oximetry not able to adequately assess oxygen saturation due to inadequate arterial pressure; tachypneic with a respiratory rate in the range of 22-31 RPM HEENT: Scleral icterus; pupils equally round and reactive to light; extraocular motion intact; dry mucous membranes Neck: Flattened jugular veins Pulmonary: Symmetric chest wall excursion without restriction; absent air movement throughout the entire right lung field, air movement is present throughout the left field without associated abnormal lung sounds Cardiovascular: Tachycardic rate with irregular rhythm, murmur present associated with AV fistula without additional murmurs, rubs, or gallops; bilateral radial and posterior tibial pulse 1+; normal capillary refill in all nailbeds; right brachial AV fistula with palpable thrill and audible bruit; right femoral central venous catheter with some oozing around the access site but otherwise without concerning findings Gastrointestinal: Soft, protuberant; nontender; low-frequency normal pitch bowel sounds throughout Neurologic: Cranial nerves II through XII grossly intact; no discernible focal weakness no paresthesia though with general anasarca Skin: Left fifth phalange distal of the PIP is frankly necrotic, cool to touch, without tenderness; along the medial aspect there is a linear laceration with coagulated blood with sanguinous oozing; previously seen erythema involving the adjacent fourth toe has softened, without tenderness to palpation nor radiating heat; there is no appreciable lymphangitis of the affected extremity; jaundice to the mid chest Results & Data Results & Data Vital Signs (Past 12 Hours) Vital Signs Temp Pulse Pulse Resp BP BP Pulse Ox 09/27/25 05:30 117/45 L 09/27/25 05:30 117/45 L 09/27/25 05:30 117/45 L 09/27/25 05:30 117/45 L 09/27/25 05:30 117/45 L 09/27/25 05:30 87 25 H 70 L 09/27/25 05:25 110/53 L 09/27/25 05:25 110/53 L 09/27/25 05:25 110/53 L 09/27/25 05:25 110/53 L 09/27/25 05:25 110/53 L 09/27/25 05:24 83 26 H 72 L 09/27/25 05:02 94/39 L 09/27/25 05:02 94/39 L 09/27/25 05:02 94/39 L 09/27/25 05:02 94/39 L 09/27/25 05:02 94/39 L 09/27/25 05:01 72/46 L 09/27/25 05:00 105 H 25 H 66 L 09/27/25 04:46 97/61 L 09/27/25 04:46 97/61 L 09/27/25 04:46 97/61 L 09/27/25 04:46 97/61 L 09/27/25 04:46 97/61 L 09/27/25 04:45 92 H 26 H 62 L 09/27/25 04:30 91/69 L 09/27/25 04:30 91/69 L 09/27/25 04:30 91/69 L 09/27/25 04:30 91/69 L 09/27/25 04:30 91/69 L 09/27/25 04:30 96 H 30 H 74 L 09/27/25 04:26 107/43 L 09/27/25 04:26 107/43 L 09/27/25 04:26 107/43 L 09/27/25 04:26 107/43 L 09/27/25 04:24 89 25 H 75 L 09/27/25 04:00 97 H 27 H 75 L 09/27/25 04:00 96/51 L 09/27/25 04:00 96/51 L 09/27/25 04:00 96/51 L 09/27/25 04:00 96/51 L 09/27/25 04:00 96/51 L 09/27/25 03:46 99/43 L 09/27/25 03:46 99/43 L 09/27/25 03:46 99/43 L 09/27/25 03:46 99/43 L 09/27/25 03:46 99/43 L 09/27/25 03:45 91 H 14 72 L 09/27/25 03:30 101/40 L 09/27/25 03:30 101/40 L 09/27/25 02:30 88 15 09/27/25 02:30 94/65 L 09/27/25 02:30 94/65 L 09/27/25 02:30 94/65 L 09/27/25 02:30 94/65 L 09/27/25 02:15 95 H 28 H 09/27/25 02:15 101/40 L 09/27/25 02:15 101/40 L 09/27/25 02:15 101/40 L 09/27/25 02:15 101/40 L 09/27/25 02:15 101/40 L 09/27/25 02:00 85 19 74 L 09/27/25 02:00 100/39 L 09/27/25 02:00 100/39 L 09/27/25 02:00 100/39 L 09/27/25 02:00 100/39 L 09/27/25 02:00 100/39 L 09/27/25 01:49 94/34 L 09/27/25 01:49 94/34 L 09/27/25 01:49 94/34 L 09/27/25 01:49 94/34 L 09/27/25 01:49 94/34 L 09/27/25 01:48 98 H 16 76 L 09/27/25 01:30 87 19 09/27/25 01:30 81/35 L 09/27/25 01:30 81/35 L 09/27/25 01:30 81/35 L 09/27/25 01:30 81/35 L 09/27/25 01:30 81/35 L 09/27/25 01:24 94 H 21 92 09/27/25 01:24 72/36 L 09/27/25 01:24 72/36 L 09/27/25 01:24 72/36 L 09/27/25 01:24 72/36 L 09/27/25 01:24 72/36 L 09/27/25 01:15 103 H 21 100 09/27/25 01:15 77/46 L 09/27/25 01:15 77/46 L 09/27/25 01:15 77/46 L 09/27/25 01:15 77/46 L 09/27/25 01:15 77/46 L 09/27/25 01:06 72/45 L 09/27/25 01:06 72/45 L 09/27/25 01:06 72/45 L 09/27/25 01:06 72/45 L 09/27/25 01:06 72/45 L 09/27/25 01:06 90 23 85 L 09/27/25 01:02 79/45 L 09/27/25 01:02 79/45 L 09/27/25 01:02 79/45 L 09/27/25 00:30 98 H 39 H 91 09/27/25 00:30 64/49 L 09/27/25 00:30 64/49 L 09/27/25 00:16 91/40 L 09/27/25 00:16 91/40 L 09/27/25 00:16 91/40 L 09/27/25 00:16 91/40 L 09/27/25 00:16 91/40 L 09/27/25 00:15 83 29 H 81 L 09/27/25 00:01 81/40 L 09/27/25 00:01 81/40 L 09/27/25 00:01 81/40 L 09/27/25 00:01 81/40 L 09/27/25 00:01 81/40 L 09/27/25 00:00 95 H 28 H 84 L 09/26/25 23:54 82/39 L 09/26/25 23:54 82/39 L 09/26/25 23:54 82/39 L 09/26/25 23:54 82/39 L 09/26/25 23:54 82/39 L 09/26/25 23:54 87 33 H 82 L 09/26/25 23:50 77/38 L 09/26/25 23:50 77/38 L 09/26/25 23:50 77/38 L 09/26/25 23:50 77/38 L 09/26/25 23:50 77/38 L 09/26/25 23:48 94 H 25 H 72 L 09/26/25 23:46 77/52 L 09/26/25 23:46 77/52 L 09/26/25 23:46 77/52 L 09/26/25 23:46 77/52 L 09/26/25 23:45 81 30 H 79 L 09/26/25 23:30 91 H 14 96 09/26/25 23:30 91/44 L 09/26/25 23:30 91/44 L 09/26/25 23:30 91/44 L 09/26/25 23:30 91/44 L 09/26/25 23:30 91/44 L 09/26/25 23:16 93/34 L 09/26/25 23:16 93/34 L 09/26/25 23:16 93/34 L 09/26/25 23:16 93/34 L 09/26/25 23:16 93/34 L 09/26/25 23:15 80 25 H 89 L 09/26/25 23:01 86/38 L 09/26/25 23:01 86/38 L 09/26/25 23:01 86/38 L 09/26/25 23:01 86/38 L 09/26/25 23:01 86/38 L 09/26/25 23:00 94 H 28 H 92 09/26/25 20:28 09/26/25 20:28 37.1 C 116 H 26 H 97/48 L 90 09/26/25 20:15 37.1 C 103 H 18 100/41 L 09/26/25 20:00 117 H 32 H 91/64 L 09/26/25 19:53 104 H 09/26/25 19:30 97 H 19 84/60 L 93 O2 Del Method O2 Flow Rate 09/27/25 05:30 09/27/25 05:30 09/27/25 05:30 09/27/25 05:30 09/27/25 05:30 09/27/25 05:30 09/27/25 05:25 09/27/25 05:25 09/27/25 05:25 09/27/25 05:25 09/27/25 05:25 09/27/25 05:24 09/27/25 05:02 09/27/25 05:02 09/27/25 05:02 09/27/25 05:02 09/27/25 05:02 09/27/25 05:01 09/27/25 05:00 09/27/25 04:46 09/27/25 04:46 09/27/25 04:46 09/27/25 04:46 09/27/25 04:46 09/27/25 04:45 09/27/25 04:30 09/27/25 04:30 09/27/25 04:30 09/27/25 04:30 09/27/25 04:30 09/27/25 04:30 09/27/25 04:26 09/27/25 04:26 09/27/25 04:26 09/27/25 04:26 09/27/25 04:24 09/27/25 04:00 09/27/25 04:00 09/27/25 04:00 09/27/25 04:00 09/27/25 04:00 09/27/25 04:00 09/27/25 03:46 09/27/25 03:46 09/27/25 03:46 09/27/25 03:46 09/27/25 03:46 09/27/25 03:45 09/27/25 03:30 09/27/25 03:30 09/27/25 02:30 09/27/25 02:30 09/27/25 02:30 09/27/25 02:30 09/27/25 02:30 09/27/25 02:15 09/27/25 02:15 09/27/25 02:15 09/27/25 02:15 09/27/25 02:15 09/27/25 02:15 09/27/25 02:00 09/27/25 02:00 09/27/25 02:00 09/27/25 02:00 09/27/25 02:00 09/27/25 02:00 09/27/25 01:49 09/27/25 01:49 09/27/25 01:49 09/27/25 01:49 09/27/25 01:49 09/27/25 01:48 09/27/25 01:30 09/27/25 01:30 09/27/25 01:30 09/27/25 01:30 09/27/25 01:30 09/27/25 01:30 09/27/25 01:24 09/27/25 01:24 09/27/25 01:24 09/27/25 01:24 09/27/25 01:24 09/27/25 01:24 09/27/25 01:15 09/27/25 01:15 09/27/25 01:15 09/27/25 01:15 09/27/25 01:15 09/27/25 01:15 09/27/25 01:06 09/27/25 01:06 09/27/25 01:06 09/27/25 01:06 09/27/25 01:06 09/27/25 01:06 09/27/25 01:02 09/27/25 01:02 09/27/25 01:02 09/27/25 00:30 09/27/25 00:30 09/27/25 00:30 09/27/25 00:16 09/27/25 00:16 09/27/25 00:16 09/27/25 00:16 09/27/25 00:16 09/27/25 00:15 09/27/25 00:01 09/27/25 00:01 09/27/25 00:01 09/27/25 00:01 09/27/25 00:01 09/27/25 00:00 09/26/25 23:54 09/26/25 23:54 09/26/25 23:54 09/26/25 23:54 09/26/25 23:54 09/26/25 23:54 09/26/25 23:50 09/26/25 23:50 09/26/25 23:50 09/26/25 23:50 09/26/25 23:50 09/26/25 23:48 09/26/25 23:46 09/26/25 23:46 09/26/25 23:46 09/26/25 23:46 09/26/25 23:45 09/26/25 23:30 09/26/25 23:30 09/26/25 23:30 09/26/25 23:30 09/26/25 23:30 09/26/25 23:30 09/26/25 23:16 09/26/25 23:16 09/26/25 23:16 09/26/25 23:16 09/26/25 23:16 09/26/25 23:15 09/26/25 23:01 09/26/25 23:01 09/26/25 23:01 09/26/25 23:01 09/26/25 23:01 09/26/25 23:00 09/26/25 20:28 Nasal Cannula 4 09/26/25 20:28 Nasal Cannula 4 09/26/25 20:15 Nasal Cannula 4 09/26/25 20:00 Nasal Cannula 5 09/26/25 19:53 09/26/25 19:30 Laboratory Results Neutrophilic leukocytosis of 12 INR 2.2; Hemoglobin 9.2 Creatinine 5.5 Anion gap 12 AST 22, ALT 67, Alkaline phosphatase 133; Total bilirubin 3.6, direct bilirubin 1.6 Troponin trend 59, 53, 59, 57 ESR 77, CRP 12.[address] chest with large right sided pleural effusion and associated atelectasis CT foot without corby findings of osteomyelitis; large atherosclerotic burden noted Abdominal US unable to visualize gallbladder, noted to have CBD dilatation PG Care Time/CCT Total # of Minutes Spent Total Time Spent with Patient: Total time spent is greater than 50% in coordination of care (as documented) at patient's floor/unit and/or counseling patient: Coding Level of Care Code 19718 SUB INP/OBS CARE 350MIN Diagnoses Sepsis with multiple organ dysfunction (MOD) A41.9; R65.20 Severe sepsis A41.9; R65.20 Toe necrosis I96 Type 2 myocardial infarction due to shock R57.9; I21.A1 Coagulopathy D68.9 Hyperbilirubinemia E80.6 Hydrothorax J94.8 ESRD on hemodialysis N18.6; Z99.2 Longstanding persistent atrial fibrillation I48.11 Atrial fibrillation type: longstanding persistent Type II diabetes mellitus with peripheral angiopathy E11.51 Mixed hyperlipidemia E78.2 Hyperlipidemia type: mixed hyperlipidemia Chronic gout due to renal impairment without tophus, unspecified site [id number] Chronicity: chronic Gout site: unspecified site 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
--- NOTE | 2025-09-27 09:02 | Critical Care Progress Note ---
Date of Service September 27, 2025 Assessment & Plan (1) Shock: (2) Type 2 myocardial infarction due to shock: (3) Sepsis with multiple organ dysfunction (MOD): (4) Pleural effusion: (5) Atrial fibrillation: (6) ESRD on hemodialysis: (7) Hypothyroidism: (8) Severe sepsis: (9) Shock circulatory: (10) Toe necrosis: Plan Reason Critically Ill: 80 YOF with ESRD - presents hypotensive with concern of septic shock with multiorgan dysfunction what appears as new right sided pleural effusion, on Eliquis for Afib. Requiring vasopressor support. Neuro - No acute needs CAM ICU: NEGATIVE - Continue with supportive care- follow for ICU delirium or metabolic encephalopathy from shock - Frequent re-orientation, attempt to maintain normal sleep wake cycle Cardiac - Shock with multiorgan dysfunction, Hx: Afib with chronic DOAC, heart murmur, HTN --Shock Likely septic Got 1.5 L crystalloid in the ED Follow-up 2D echo Continue with vasopressor support to keep MAP greater than 65 --Elevated troponin Likely type II AR Continue to monitor --A-fib On Eliquis at home Last dose of Eliquis was 09/26/2025 morning Respiratory - Hypoxic respiratory failure, Pleural effusion CT chest 09/26/2025 personally reviewed: Large right-sided pleural effusion with compressive atelectasis of the right lower lobe Questionable infiltrate/mass/fibrosis in the right upper lobe on the periphery Cardiomegaly No significant mediastinal lymphadenopathy --Large right-sided pleural effusion No previous imaging to compare I do not think pleural effusion is playing a major part in the patient's clinical presentation I do think she is going to benefit from thoracentesis -- Abnormal chest CT Patient does have compressive atelectasis of the right middle and lower lobe but she also has peripheral opacity of the right upper lobe which could be atelectasis scarring or mass I will try to get images from before to compare GI - Elevated LFT, Elevated bili, mild ascites, Diarrhea. HX: Colon cancer - resection only --Transaminitis with elevated bilirubin Bilirubin is mostly unconjugated Elevation of AST is likely from shock Abdominal ultrasound did not show any acute findings especially related to gallbladder, they do recommend CT of the abdominal pelvis which we will consider when the patient is more stable -- Abdominal ascites Likely from end-stage renal disease RENAL/LYTES - -- ESRD- anuric on dialysis MWF Renally dose medications - anuric no acute need ENDO - --Hypothyroidism On levothyroxine 75 mcg at home -- ICU hyperglycemia protocol HEME - Chronic use of anticoagulation, HX: Colon cancer - as above- hold Eliquis- consider heparin in meantime for stroke prevention --History of colon cancer S/p resection Reports last colonoscopy was ~5 years ago- with diarrhea, reported (+) Hemoccult, and other GI symptoms related to loss of appetite and other associated GI symptoms ID - --Right lower extremity toe infection Follow-up blood cultures CRP 12.6 Procalcitonin 1.28 Wound care, Ortho consulted Continue with antibiotics -- DNI --Prophylaxis VTE: IPCs, on Eliquis at home, currently on hold GI: None Lines: Right femoral TLC Diet: N.p.o. Plan: In/out: +1.7 Continue with vasopressor support with MAP greater than 65 Patient is DNI, this is tricky especially given that the patient is on 2 vasopressors. Hopefully she will turn around I did reconfirm that she would not like to be intubated no matter the consequences including I do not think pleural effusion is playing a major part in the patient's clinical presentation I do think she is going to benefit from thoracentesis, will try to do with 48-72 hours since her last dose of Eliquis especially given that she is end-stage renal disease Patient is supposed to get dialysis but given that she is on 2 vasopressors, I am not sure if that will be a possibility without CRRT Electrolytes are still within acceptable range We are not able to get a good pulse ox reading likely because the patient has severe peripheral vascular disease as well as she being on vasopressors She is mentating well and she does get periodic saturations of 95 to 96% on 3 L which seem accurate I will get an arterial duplex to look at the HAO on bilateral lower extremities Radiology department has been called to see if they are able to get images of the chest from the port Case discussed with nephrology I have personally spent 42 minutes of critical care time in the direct management of this patient. This is a life/limb threatening event. This includes time spent evaluating patient, direct bedside care, chart review, placing orders, interpretation of diagnostic studies, discussion with consultants, patient, and family members, as well as other required patient management activities. This time is exclusive of all separately billable procedures, and teaching time and separate from and in addition to any other critical care service time. Thank you for allowing us to participate in the care of this patient. Please refer to my attending physician's documentation for any further recommendations. Admission and Anticipated Discharge Date Admission Date: September 26, 2025 Subjective Patient seen and examined at bedside. No acute distress, no adverse events overnight She was on 0.12 of Levophed at 0.04 vasopressin at time of examination SBP was in the 110s with MAP in the mid to high 60s. Denied any abdominal pain No chest pain Denied any dizziness She says she is hungry and wanted something to eat Tmax 37.1 Review of Systems 2 Review of Systems: All systems reviewed & are unremarkable except as noted in Subjective Physical Exam 2 Physical Exam: Constitutional: No acute distress HEENT: EOMI, PERRLA Respiratory system: Decreased air entry on the right side, no wheeze, no rhonchi, positive crackles bilateral lower lobe CVS: S1-S2 positive, no murmurs or gallops Abdomen: Soft, nontender, nondistended, positive bowel sounds x4 Extremities: +1 pulses bilaterally radialis/ dorsalis pedis, right foot fifth toe cyanotic with bluish/greenish hue. Erythematous on the right lateral short, positive rubor, positive calor, no dolor Neuro: Awake alert oriented x3 Psych: Normal mood and affect G/U: No Lopez Skin: no rashes, warm and dry Lymphatic: no cervical or axillary lymphadenopathy Results & Data Results & Data Vital Signs (Past 12 Hours) Vital Signs Pulse Resp BP Pulse Ox 09/27/25 05:30 117/45 L 09/27/25 05:30 117/45 L 09/27/25 05:30 117/45 L 09/27/25 05:30 117/45 L 09/27/25 05:30 117/45 L 09/27/25 05:30 87 25 H 70 L 09/27/25 05:25 110/53 L 09/27/25 05:25 110/53 L 09/27/25 05:25 110/53 L 09/27/25 05:25 110/53 L 09/27/25 05:25 110/53 L 09/27/25 05:24 83 26 H 72 L 09/27/25 05:02 94/39 L 09/27/25 05:02 94/39 L 09/27/25 05:02 94/39 L 09/27/25 05:02 94/39 L 09/27/25 05:02 94/39 L 09/27/25 05:01 72/46 L 09/27/25 05:00 105 H 25 H 66 L 09/27/25 04:46 97/61 L 09/27/25 04:46 97/61 L 09/27/25 04:46 97/61 L 09/27/25 04:46 97/61 L 09/27/25 04:46 97/61 L 09/27/25 04:45 92 H 26 H 62 L 09/27/25 04:30 91/69 L 09/27/25 04:30 91/69 L 09/27/25 04:30 91/69 L 09/27/25 04:30 91/69 L 09/27/25 04:30 91/69 L 09/27/25 04:30 96 H 30 H 74 L 09/27/25 04:26 107/43 L 09/27/25 04:26 107/43 L 09/27/25 04:26 107/43 L 09/27/25 04:26 107/43 L 09/27/25 04:24 89 25 H 75 L 09/27/25 04:00 97 H 27 H 75 L 09/27/25 04:00 96/51 L 09/27/25 04:00 96/51 L 09/27/25 04:00 96/51 L 09/27/25 04:00 96/51 L 09/27/25 04:00 96/51 L 09/27/25 03:46 99/43 L 09/27/25 03:46 99/43 L 09/27/25 03:46 99/43 L 09/27/25 03:46 99/43 L 09/27/25 03:46 99/43 L 09/27/25 03:45 91 H 14 72 L 09/27/25 03:30 101/40 L 09/27/25 03:30 101/40 L 09/27/25 02:30 88 15 09/27/25 02:30 94/65 L 09/27/25 02:30 94/65 L 09/27/25 02:30 94/65 L 09/27/25 02:30 94/65 L 09/27/25 02:15 95 H 28 H 09/27/25 02:15 101/40 L 09/27/25 02:15 101/40 L 09/27/25 02:15 101/40 L 09/27/25 02:15 101/40 L 09/27/25 02:15 101/40 L 09/27/25 02:00 85 19 74 L 09/27/25 02:00 100/39 L 09/27/25 02:00 100/39 L 09/27/25 02:00 100/39 L 09/27/25 02:00 100/39 L 09/27/25 02:00 100/39 L 09/27/25 01:49 94/34 L 09/27/25 01:49 94/34 L 09/27/25 01:49 94/34 L 09/27/25 01:49 94/34 L 09/27/25 01:49 94/34 L 09/27/25 01:48 98 H 16 76 L 09/27/25 01:30 87 19 09/27/25 01:30 81/35 L 09/27/25 01:30 81/35 L 09/27/25 01:30 81/35 L 09/27/25 01:30 81/35 L 09/27/25 01:30 81/35 L 09/27/25 01:24 94 H 21 92 09/27/25 01:24 72/36 L 09/27/25 01:24 72/36 L 09/27/25 01:24 72/36 L 09/27/25 01:24 72/36 L 09/27/25 01:24 72/36 L 09/27/25 01:15 103 H 21 100 09/27/25 01:15 77/46 L 09/27/25 01:15 77/46 L 09/27/25 01:15 77/46 L 09/27/25 01:15 77/46 L 09/27/25 01:15 77/46 L 09/27/25 01:06 72/45 L 09/27/25 01:06 72/45 L 09/27/25 01:06 72/45 L 09/27/25 01:06 72/45 L 09/27/25 01:06 72/45 L 09/27/25 01:06 90 23 85 L 09/27/25 01:02 79/45 L 09/27/25 01:02 79/45 L 09/27/25 01:02 79/45 L 09/27/25 00:30 98 H 39 H 91 09/27/25 00:30 64/49 L 09/27/25 00:30 64/49 L 09/27/25 00:16 91/40 L 09/27/25 00:16 91/40 L 09/27/25 00:16 91/40 L 09/27/25 00:16 91/40 L 09/27/25 00:16 91/40 L 09/27/25 00:15 83 29 H 81 L 09/27/25 00:01 81/40 L 09/27/25 00:01 81/40 L 09/27/25 00:01 81/40 L 09/27/25 00:01 81/40 L 09/27/25 00:01 81/40 L 09/27/25 00:00 95 H 28 H 84 L 09/26/25 23:54 82/39 L 09/26/25 23:54 82/39 L 09/26/25 23:54 82/39 L 09/26/25 23:54 82/39 L 09/26/25 23:54 82/39 L 09/26/25 23:54 87 33 H 82 L 09/26/25 23:50 77/38 L 09/26/25 23:50 77/38 L 09/26/25 23:50 77/38 L 09/26/25 23:50 77/38 L 09/26/25 23:50 77/38 L 09/26/25 23:48 94 H 25 H 72 L 09/26/25 23:46 77/52 L 09/26/25 23:46 77/52 L 09/26/25 23:46 77/52 L 09/26/25 23:46 77/52 L 09/26/25 23:45 81 30 H 79 L 09/26/25 23:30 91 H 14 96 09/26/25 23:30 91/44 L 09/26/25 23:30 91/44 L 09/26/25 23:30 91/44 L 09/26/25 23:30 91/44 L 09/26/25 23:30 91/44 L 09/26/25 23:16 93/34 L 09/26/25 23:16 93/34 L 09/26/25 23:16 93/34 L 09/26/25 23:16 93/34 L 09/26/25 23:16 93/34 L 09/26/25 23:15 80 25 H 89 L 09/26/25 23:01 86/38 L 09/26/25 23:01 86/38 L 09/26/25 23:01 86/38 L 09/26/25 23:01 86/38 L 09/26/25 23:01 86/38 L 09/26/25 23:00 94 H 28 H 92 Laboratory Results 09/27/25 03:47 09/27/25 03:47 Coding Level of Care Code 37776 CRITICAL CARE 1ST 30-74M Diagnoses Shock R57.9 Type 2 myocardial infarction due to shock R57.9; I21.A1 Sepsis with multiple organ dysfunction (MOD) A41.9; R65.20 Pleural effusion J90 Longstanding persistent atrial fibrillation I48.11 Atrial fibrillation type: longstanding persistent ESRD on hemodialysis N18.6; Z99.2 Hypothyroidism E03.9 Severe sepsis A41.9; R65.20 Toe necrosis I96 (5) Atrial fibrillation Atrial fibrillation type: longstanding persistent Qualified Code(s): I48.11 - Longstanding persistent atrial fibrillation
[2025-09-27] MEDS: MAGNESIUM SULFATE / D5W 1 GM/100 ML BAG IV SCH (10:07)
--- NOTE | 2025-09-27 11:23 | Pharmacy Report ---
Pharmacy PK ABX Note - Date of Service September 27, 2025 - Assessment and Plan Assessment 80 year old F receiving vancomycin and cefepime empirically in setting of septic shock. Blood cultures pending. ESRD on iHD MWF. Day #2 of antimicrobial therapy. Plan Vancomycin * Loading dose: 1000 mg IV x 1 * Random level this AM, 17.2mcg/ml (~6.5h level)- therapeutic. Goal pre-HD level: 15-20mcg/mL. * Given hemodynamically unstable requiring 2 vasopressors and no plan for HD today, will repeat random level tomorrow AM to guide further dosing. No supplemental vancomycin today. Pharmacy will continue to follow and will adjust dose/frequency as necessary. Thank you.
[2025-09-27 11:37] LABS: Thyroid Stimulating Hormone 2.594 uIu/ml (0.300-4.500)
--- NOTE | 2025-09-27 12:48 | Nephrology Consultation ---
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 Maintained on IHD MWF at [facility]. BP hypotensive and intravascularly volume depleted. Electrolytes normal. No emergent indication at this time. Goal is to maintain a relatively even fluid balance. Document strict I/O's. ' HD via RUE AVF. Repeat serum metabolic profile tomorrow AM. Medications are appropriately dosed for kidney dysfunction. I will re-evaluate tomorrow AM. Next HD tomorrow or Monday. (2) Sepsis with multiple organ dysfunction (MOD): Started on treatment with vancomycin and cefepime. Cultures pending. Suspected coruse o infection is the (3) Atrial fibrillation: Rate controlled. Eliquis held. (4) Toe necrosis: (5) Hydrothorax: (6) Anemia: Records from [facility] requested (unavailable until Monday). Ligia reports recent concern for GI bleed. No obvious melena or hematochezia. SUSHMA therapy will be coordinated with HD PRN. 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 Ligia dialyzes MWF at [facility] under the care of Dr. Marte. Ligia completed her last dialysis treatment on Monday 09/24. She denies any complications with treatments. No records from [facility] were available today, the facility operates MWF. She has been on HD for ~10 years. She dialyzes via a RUE AVF. Liiga states that she underwent right nephrectomy in the past for a history of cancer. No additional treatment was required. Surgery was performed ~8 years ago. She has a complex medical history which includes colon cancer resection in 2015, hypertension, DMII, peripheral arterial disease, former smoker, atrial fibrillation, and hypothyroidism. Ligia presented to the ER at [facility] with concerns for infection involving her toe. She presented with evidence of dry gangrene/necrosis of the 5th toe. She reports subjective fevers and chills. She denies pain. On evaluation, she was hypotensive requiring vasopressor support with Levophed gtt. IV crystalloids were also provided. She has been afebrile. Atrial fibrillation noted on monitor. Broad spectrum antibiotics were administered and she was admitted to the ICU. Ligia was seen and evaluated with Dr. Martinez today. She was resting comfortably in bed. She denies chest pains or palpitations. She is not experiencing any dyspnea. She does not have significant fluid retention or edema. She is anuric at baseline. Levophed and vasopressin provided for hemodynamic support. She remains on vancomycin and cefepime. Recent medical history includes ongoing diarrhea. Ligia describes recent evidence of GI bleeding for which her PCP had encouraged colonoscopy. She has been following with wound care through [facility] for her foot. Allergies Allergy/AdvReac Type Severity Reaction Status Date / Time No Known Allergies Allergy Verified 09/26/25 17:35 Home Medications Medication Instructions Recorded Confirmed Type allopurinol 100 mg tablet 100 mg PO QAM 09/26/25 09/26/25 History apixaban 5 mg tablet (Eliquis) 2.5 mg PO BID 09/26/25 09/26/25 History cholecalciferol (vitamin D3) 25 25 mcg PO DAILY 09/26/25 09/26/25 History mcg (1,000 unit) capsule (Vitamin D3) levothyroxine 75 mcg tablet 75 mcg PO DAILYBB 09/26/25 09/26/25 History metoprolol tartrate 25 mg tablet 25 mg PO BID 09/26/25 09/26/25 History simvastatin 40 mg tablet 40 mg PO QPM 09/26/25 09/26/25 History sitagliptin phosphate 25 mg tablet 25 mg PO QAM 09/26/25 09/26/25 History (Januvia) Patient History Medical History (Updated 09/27/25 @ 13:15 by Kenney Munoz DO) Anemia Closed left hip fracture Colon cancer COVID-19 Surgical History History of repair of left hip joint History of partial colectomy Social History Smoking Status: Unknown if ever smoked Hx Alcohol Use: No Hx Substance Use: No Preferred Language: Azerbaijani Communication Ability: Effective Cat 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 Required: No Beliefs That Will Affect Care: None Current Living Situation: Spouse Feels Safe at Home: Yes Assistive Devices: Denture - Upper, Denture - Lower, Glasses and Walker Review of Systems Review of Systems: All systems reviewed & are unremarkable except as noted in HPI & below Physical Exam Constitutional: well developed, + thin and + frail appearing; no acute distress Eyes: no scleral abnormality and no corneal abnormality ENMT: external ear and nose normal, oropharynx normal Mouth: + dry oral mucous membranes Neck: normal visual inspection and trachea midline Respiratory: normal respiratory effort Auscultation: lungs clear to auscultation bilaterally Cardiovascular: Rate/Rhythm: + irregularly irregular Heart Sounds: normal S1 and normal S2 Vessels: + JVD Extremities: + pedal edema and + AV fistula (+thrill and bruit); + abnormal capillary refill weak peripheral pulses DP and PT BL Musculoskeletal: Extremities: no cyanosis and no clubbing Skin: + turgor decreased; no jaundice R 5th toe with overlying necrotic wound with denuded skin and mild erythema Neurologic: Motor/Sensory: no tremor and no asterixis Psychiatric: Orientation: alert and oriented x 3 Results & Data Vital Signs (Past 12 Hours) Vital Signs Temp Pulse Resp BP Pulse Ox O2 Del Method O2 Flow Rate 09/27/25 12:30 97/56 L 09/27/25 12:14 102/55 L 09/27/25 11:47 99/31 L 09/27/25 11:30 109/47 L 09/27/25 11:15 104/41 L 09/27/25 11:00 100/54 L 09/27/25 10:46 95/50 L 09/27/25 10:44 92 H 22 97 Nasal Cannula 2 09/27/25 10:34 97/41 L 09/27/25 10:11 36.5 C 09/27/25 09:00 92 H 21 90 09/27/25 09:00 83/48 L 09/27/25 09:00 83/48 L 09/27/25 09:00 83/48 L 09/27/25 09:00 83/48 L 09/27/25 09:00 83/48 L 09/27/25 08:45 103/68 09/27/25 08:45 86 93 Nasal Cannula 3 09/27/25 08:30 Nasal Cannula 2 09/27/25 08:30 90 09/27/25 08:30 102/65 09/27/25 08:15 103/54 L 09/27/25 08:02 84 23 09/27/25 08:00 97/57 L 09/27/25 07:59 99 H 09/27/25 07:45 113/68 09/27/25 07:44 78 19 09/27/25 07:26 93 H 21 09/27/25 07:16 113/78 09/27/25 06:53 90 09/27/25 05:30 117/45 L 09/27/25 05:30 117/45 L 09/27/25 05:30 117/45 L 09/27/25 05:30 117/45 L 09/27/25 05:30 117/45 L 09/27/25 05:30 87 25 H 70 L 09/27/25 05:25 110/53 L 09/27/25 05:25 110/53 L 09/27/25 05:25 110/53 L 09/27/25 05:25 110/53 L 09/27/25 05:25 110/53 L 09/27/25 05:24 83 26 H 72 L 09/27/25 05:02 94/39 L 09/27/25 05:02 94/39 L 09/27/25 05:02 94/39 L 09/27/25 05:02 94/39 L 09/27/25 05:02 94/39 L 09/27/25 05:01 72/46 L 09/27/25 05:00 105 H 25 H 66 L 09/27/25 04:46 97/61 L 09/27/25 04:46 97/61 L 09/27/25 04:46 97/61 L 09/27/25 04:46 97/61 L 09/27/25 04:46 97/61 L 09/27/25 04:45 92 H 26 H 62 L 09/27/25 04:30 91/69 L 09/27/25 04:30 91/69 L 09/27/25 04:30 91/69 L 09/27/25 04:30 91/69 L 09/27/25 04:30 91/69 L 09/27/25 04:30 96 H 30 H 74 L 09/27/25 04:26 107/43 L 09/27/25 04:26 107/43 L 09/27/25 04:26 107/43 L 09/27/25 04:26 107/43 L 09/27/25 04:24 89 25 H 75 L 09/27/25 04:00 97 H 27 H 75 L 09/27/25 04:00 96/51 L 09/27/25 04:00 96/51 L 09/27/25 04:00 96/51 L 09/27/25 04:00 96/51 L 09/27/25 04:00 96/51 L 09/27/25 03:46 99/43 L 09/27/25 03:46 99/43 L 09/27/25 03:46 99/43 L 09/27/25 03:46 99/43 L 09/27/25 03:46 99/43 L 09/27/25 03:45 91 H 14 72 L 09/27/25 03:30 101/40 L 09/27/25 03:30 101/40 L 09/27/25 02:30 88 15 09/27/25 02:30 94/65 L 09/27/25 02:30 94/65 L 09/27/25 02:30 94/65 L 09/27/25 02:30 94/65 L 09/27/25 02:15 95 H 28 H 09/27/25 02:15 101/40 L 09/27/25 02:15 101/40 L 09/27/25 02:15 101/40 L 09/27/25 02:15 101/40 L 09/27/25 02:15 101/40 L 09/27/25 02:00 85 19 74 L 09/27/25 02:00 100/39 L 09/27/25 02:00 100/39 L 09/27/25 02:00 100/39 L 09/27/25 02:00 100/39 L 09/27/25 02:00 100/39 L 09/27/25 01:49 94/34 L 09/27/25 01:49 94/34 L 09/27/25 01:49 94/34 L 09/27/25 01:49 94/34 L 09/27/25 01:49 94/34 L 09/27/25 01:48 98 H 16 76 L 09/27/25 01:30 87 19 09/27/25 01:30 81/35 L 09/27/25 01:30 81/35 L 09/27/25 01:30 81/35 L 09/27/25 01:30 81/35 L 09/27/25 01:30 81/35 L 09/27/25 01:24 94 H 21 92 09/27/25 01:24 72/36 L 09/27/25 01:24 72/36 L 09/27/25 01:24 72/36 L 09/27/25 01:24 72/36 L 09/27/25 01:24 72/36 L 09/27/25 01:15 103 H 21 100 09/27/25 01:15 77/46 L 09/27/25 01:15 77/46 L 09/27/25 01:15 77/46 L 09/27/25 01:15 77/46 L 09/27/25 01:15 77/46 L 09/27/25 01:06 72/45 L 09/27/25 01:06 72/45 L 09/27/25 01:06 72/45 L 09/27/25 01:06 72/45 L 09/27/25 01:06 72/45 L 09/27/25 01:06 90 23 85 L 09/27/25 01:02 79/45 L 09/27/25 01:02 79/45 L 09/27/25 01:02 79/45 L Laboratory Results Laboratory Results - last 24 hr 09/26/25 09/26/25 09/26/25 15:27 16:11 19:33 WBC 11.46 H RBC 3.42 L Hgb 10.4 L Hct 32.0 L MCV 93.6 MCH 30.4 MCHC 32.5 RDW Std Deviation 60.5 H RDW Coeff of Leilani 18.1 H Plt Count 212 MPV 11.8 Immature Gran % (Auto) 0.4 Neut % (Auto) 79.3 Lymph % (Auto) 10.6 [place] % (Auto) 8.8 Eos % (Auto) 0.4 Baso % (Auto) 0.5 Neut # (Auto) 9.07 H Lymph # (Auto) 1.22 [place] # (Auto) 1.01 H Eos # (Auto) 0.05 Baso # (Auto) 0.06 Immature Gran # (Auto) 0.05 ESR PT 21.5 H INR 2.1 H APTT 37 H PTT Ratio 1.4 Fibrinogen 239 Sodium Cancelled 131 L Potassium Cancelled 4.1 Chloride Cancelled 97 L Carbon Dioxide Cancelled 26 Anion Gap Cancelled 8 BUN Cancelled 12 Creatinine Cancelled 5.22 H* Est Cr Clr Drug Dosing Cancelled 7.4 eGFR Cancelled 7.84 BUN/Creatinine Ratio Cancelled 2.3 L Glucose Cancelled 54 L POC Glucose POC Glucose (other) Estimat Average Glucose Hemoglobin A1c Lactate 1.7 Calcium Cancelled 8.8 Phosphorus 3.8 Magnesium 1.8 Total Bilirubin Cancelled 3.4 H Direct Bilirubin 1.4 H AST Cancelled 62 H ALT Cancelled 21 Alkaline Phosphatase Cancelled 139 H Troponin I High Sens 59.1 H* C-Reactive Protein Total Protein Cancelled 7.2 Albumin Cancelled 2.8 L Globulin Cancelled 4.4 H Albumin/Globulin Ratio Cancelled 0.6 L Lipase Cancelled 10 L Procalcitonin TSH Random Cortisol Nasal Screen MRSA (PCR) Stl C. cayetanensis PCR Stool Rotavirus A PCR Stl Adenov F PCR Stool Astrovirus (PCR) Stool Campylobacter PCR Stl C. diff Tox B Gene Stl C. diff [id number]-NAP1-[id number] Stool Cryptosporidium PCR Stl E.coli Shiga Tox PCR Stl Enterotoxigenic E PCR Stool EAEC (PCR) Stl E. histolytica PCR Stool Giardia Lamblia PCR Stool Salmonella PCR Stool Sapovirus (PCR) Stl P. shigelloides PCR Stl Shigella/EIEC PCR St Y.enterocolitica PCR Stool Vibrio (PCR) Stl Vibrio cholerae PCR Stl Norovirus GI/GII PCR Random Vancomycin 09/26/25 09/26/25 09/26/25 20:32 21:20 21:39 WBC RBC Hgb Hct MCV MCH MCHC RDW Std Deviation RDW Coeff of Leilani Plt Count MPV Immature Gran % (Auto) Neut % (Auto) Lymph % (Auto) [place] % (Auto) Eos % (Auto) Baso % (Auto) Neut # (Auto) Lymph # (Auto) [place] # (Auto) Eos # (Auto) Baso # (Auto) Immature Gran # (Auto) ESR PT INR APTT PTT Ratio Fibrinogen Sodium 131 L Potassium 4.3 Chloride 97 L Carbon Dioxide 24 Anion Gap 10 BUN 14 Creatinine 5.43 H* Est Cr Clr Drug Dosing 7.1 eGFR 7.48 BUN/Creatinine Ratio 2.6 L Glucose 60 L POC Glucose 51 L* 141 H POC Glucose (other) Estimat Average Glucose 71 Hemoglobin A1c 4.1 L Lactate Calcium 8.8 Phosphorus Magnesium Total Bilirubin Direct Bilirubin AST ALT Alkaline Phosphatase Troponin I High Sens 53.3 H* C-Reactive Protein Total Protein Albumin Globulin Albumin/Globulin Ratio Lipase Procalcitonin 1.28 H TSH Random Cortisol 19.76 Nasal Screen MRSA (PCR) Stl C. cayetanensis PCR Stool Rotavirus A PCR Stl Adenov F 40 PCR Stool Astrovirus (PCR) Stool Campylobacter PCR Stl C. diff Tox B Gene Stl C. diff [id number] Stool Cryptosporidium PCR Stl E.coli Shiga Tox PCR Stl Enterotoxigenic E PCR Stool EAEC (PCR) Stl E. histolytica PCR Stool Giardia Lamblia PCR Stool Salmonella PCR Stool Sapovirus (PCR) Stl P. shigelloides PCR Stl Shigella/EIEC PCR St Y.enterocolitica PCR Stool Vibrio (PCR) Stl Vibrio cholerae PCR Stl Norovirus GI/GII PCR Random Vancomycin 09/26/25 09/26/25 09/27/25 23:53 Unknown 00:31 WBC RBC Hgb Hct MCV MCH MCHC RDW Std Deviation RDW Coeff of Leilani Plt Count MPV Immature Gran % (Auto) Neut % (Auto) Lymph % (Auto) [place] % (Auto) Eos % (Auto) Baso % (Auto) Neut # (Auto) Lymph # (Auto) [place] # (Auto) Eos # (Auto) Baso # (Auto) Immature Gran # (Auto) ESR PT INR APTT PTT Ratio Fibrinogen Sodium Potassium Chloride Carbon Dioxide Anion Gap BUN Creatinine Est Cr Clr Drug Dosing eGFR BUN/Creatinine Ratio Glucose POC Glucose POC Glucose (other) 110 H Estimat Average Glucose Hemoglobin A1c Lactate Calcium Phosphorus Magnesium Total Bilirubin Direct Bilirubin AST ALT Alkaline Phosphatase Troponin I High Sens 59.4 H* C-Reactive Protein Total Protein Albumin Globulin Albumin/Globulin Ratio Lipase Procalcitonin TSH Random Cortisol Nasal Screen MRSA (PCR) Negative Stl C. cayetanensis PCR Stool Rotavirus A PCR Stl Adenov F PCR Stool Astrovirus (PCR) Stool Campylobacter PCR Stl C. diff Tox B Gene Stl C. diff [id number] Stool Cryptosporidium PCR Stl E.coli Shiga Tox PCR Stl Enterotoxigenic E PCR Stool EAEC (PCR) Stl E. histolytica PCR Stool Giardia Lamblia PCR Stool Salmonella PCR Stool Sapovirus (PCR) Stl P. shigelloides PCR Stl Shigella/EIEC PCR St Y.enterocolitica PCR Stool Vibrio (PCR) Stl Vibrio cholerae PCR Stl Norovirus GI/GII PCR Random Vancomycin 09/27/25 09/27/25 09/27/25 03:47 07:20 09:00 WBC 12.82 H RBC 3.01 L Hgb 9.2 L Hct 28.3 L MCV 94.0 MCH 30.6 MCHC 32.5 RDW Std Deviation 61.1 H RDW Coeff of Leilani 18.0 H Plt Count 227 MPV 11.7 Immature Gran % (Auto) 0.4 Neut % (Auto) 78.6 Lymph % (Auto) 10.9 [place] % (Auto) 9.0 Eos % (Auto) 0.4 Baso % (Auto) 0.7 Neut # (Auto) 10.08 H Lymph # (Auto) 1.40 [place] # (Auto) 1.15 H Eos # (Auto) 0.05 Baso # (Auto) 0.09 Immature Gran # (Auto) 0.05 ESR 77 H PT 22.5 H INR 2.2 H APTT 40 H PTT Ratio 1.5 Fibrinogen Sodium 131 L Potassium 4.3 Chloride 97 L Carbon Dioxide 22 Anion Gap 12 H BUN 16 Creatinine 5.50 H* Est Cr Clr Drug Dosing 7.0 eGFR 7.36 BUN/Creatinine Ratio 2.9 L Glucose 103 H POC Glucose 97 POC Glucose (other) Estimat Average Glucose Hemoglobin A1c Lactate Calcium 8.7 Phosphorus 4.1 Magnesium 1.8 Total Bilirubin 3.6 H Direct Bilirubin 1.6 H AST 67 H ALT 22 Alkaline Phosphatase 133 H Troponin I High Sens 57.5 H* C-Reactive Protein 12.69 H Total Protein 7.4 Albumin 3.0 L Globulin Albumin/Globulin Ratio Lipase Procalcitonin TSH 2.594 Random Cortisol Nasal Screen MRSA (PCR) Stl C. cayetanensis PCR Stool Rotavirus A PCR Stl Adenov F PCR Stool Astrovirus (PCR) Stool Campylobacter PCR Stl C. diff Tox B Gene Stl C. diff [id number] Stool Cryptosporidium PCR Stl E.coli Shiga Tox PCR Stl Enterotoxigenic E PCR Stool EAEC (PCR) Stl E. histolytica PCR Stool Giardia Lamblia PCR Stool Salmonella PCR Stool Sapovirus (PCR) Stl P. shigelloides PCR Stl Shigella/EIEC PCR St Y.enterocolitica PCR Stool Vibrio (PCR) Stl Vibrio cholerae PCR Stl Norovirus GI/GII PCR Random Vancomycin 17.2 09/27/25 09/27/25 11:26 Unknown WBC RBC Hgb Hct MCV MCH MCHC RDW Std Deviation RDW Coeff of Leilani Plt Count MPV Immature Gran % (Auto) Neut % (Auto) Lymph % (Auto) [place] % (Auto) Eos % (Auto) Baso % (Auto) Neut # (Auto) Lymph # (Auto) [place] # (Auto) Eos # (Auto) Baso # (Auto) Immature Gran # (Auto) ESR PT INR APTT PTT Ratio Fibrinogen Sodium Potassium Chloride Carbon Dioxide Anion Gap BUN Creatinine Est Cr Clr Drug Dosing eGFR BUN/Creatinine Ratio Glucose POC Glucose 119 H POC Glucose (other) Estimat Average Glucose Hemoglobin A1c Lactate Calcium Phosphorus Magnesium Total Bilirubin Direct Bilirubin AST ALT Alkaline Phosphatase Troponin I High Sens C-Reactive Protein Total Protein Albumin Globulin Albumin/Globulin Ratio Lipase Procalcitonin TSH Random Cortisol Nasal Screen MRSA (PCR) Stl C. cayetanensis PCR Pending Stool Rotavirus A PCR Pending Stl Adenov F 40/41 PCR Pending Stool Astrovirus (PCR) Pending Stool Campylobacter PCR Pending Stl C. diff Tox B Gene Pending Stl C. diff [id number] Pending Stool Cryptosporidium PCR Pending Stl E.coli Shiga Tox PCR Pending Stl Enterotoxigenic E PCR Pending Stool EAEC (PCR) Pending Stl E. histolytica PCR Pending Stool Giardia Lamblia PCR Pending Stool Salmonella PCR Pending Stool Sapovirus (PCR) Pending Stl P. shigelloides PCR Pending Stl Shigella/EIEC PCR Pending St Y.enterocolitica PCR Pending Stool Vibrio (PCR) Pending Stl Vibrio cholerae PCR Pending Stl Norovirus GI/GII PCR Pending Random Vancomycin Diagnostic Findings CT of the chest without contrast Technique:Noncontrast axial images of the chest. Coronal and sagittal reformatted images made available for review Images made to prior plain film performed earlier on the same date Findings: Large right pleural effusion with compressive atelectasis of the right upper and lower lobes. The right middle lobe is completely collapsed. There is likely a accounts for the appearance of the chest x-ray. Left lung is clear. Cardiomegaly. Trace pericardial effusion. Aortic valvular calcifications. Coronary artery calcifications. Minimal intra-abdominal ascites incompletely evaluated this exam. Impression Large right pleural effusion with associated atelectasis of the right middle lower and upper lobes. Intra-abdominal ascites PG Care Time/CCT Total # of Minutes Spent Total Time Spent with Patient: Total time spent is greater than 50% in coordination of care (as documented) at patient's floor/unit and/or counseling patient: Coding Level of Care Code 76456 IN/OBS CONSULT LVL 4,60M Diagnoses ESRD on hemodialysis N18.6; Z99.2 Sepsis with multiple organ dysfunction (MOD) A41.9; R65.20 Longstanding persistent atrial fibrillation I48.11 Atrial fibrillation type: longstanding persistent Toe necrosis I96 Hydrothorax J94.8 Anemia D64.9 (3) Atrial fibrillation Atrial fibrillation type: longstanding persistent Qualified Code(s): I48.11 - Longstanding persistent atrial fibrillation
[2025-09-27 13:49] LABS: Cdiff Toxin B Gene (2yr or >) Positive Cdiff Gene (Neg)
[2025-09-27 14:06] LABS: Adenovirus F 40/41 PCR Not Detected (NotDetected); Campylobacter PCR Not Detected (NotDetected); Enteroaggregative E.coli(EAEC) Not Detected (NotDetected); Shiga-like Toxin E.coli (STEC) Not Detected (NotDetected); Vibrio species PCR Not Detected (NotDetected)
[2025-09-27 14:26] LABS: Cdiff Toxin A+B Negative Cdiff Toxin (Negative)
--- NOTE | 2025-09-27 18:05 | Electrocardiogram Report ---
Test Reason : Blood Pressure : */* mmHG Vent. Rate : 110 BPM Atrial Rate : * BPM P-R Int : * ms QRS Dur : 86 ms QT Int : 372 ms P-R-T Axes : * 135 61 degrees QTcB Int : 503 ms Atrial fibrillation with rapid ventricular response Right axis deviation Pulmonary disease pattern Possible Right ventricular hypertrophy Septal infarct , age undetermined low votage Abnormal ECG When compared with ECG of 25-Oct-2021 16:36, Significant changes have occurred Confirmed by Christine Bocanegra ([id number]) on 09/27/2025 6:05:41 PM Referred By: REFERRED SELF Confirmed By: Christine Bocanegra
[2025-09-27] MEDS: CEFEPIME 1000MG 1,000 MG/10 ML SYR IV SCH (21:46)
--- NOTE | 2025-09-27 23:21 | Ultrasound Report ---
Exam(s): US ARTERIAL BILATERAL LOWER EXTREMITIES EXAM: US Duplex Bilateral Lower Extremities Arteries CLINICAL HISTORY: Reason for exam: PVD. TECHNIQUE: Real-time duplex ultrasound scan of the bilateral lower extremity arteries integrating B-mode two-dimensional vascular structure, Doppler spectral analysis and color flow Doppler imaging. COMPARISON: No relevant prior studies available. FINDINGS: Right common femoral artery: The right common femoral artery is obscured due to lines and dressings. Normal waveform. Right deep femoral artery: Right deep femoral artery, biphasic waveform, 41 cm/sec. Right superficial femoral artery: Right superficial femoral artery, monophasic waveform, 112, 100, and 57 cm/sec. Right popliteal artery: Popliteal artery, biphasic waveform, 70 and 48 cm/sec. Right calf/foot arteries: Right posterior tibial artery, biphasic waveform, 63 cm/sec proximal, 69 cm/sec mid, and 19 cm/sec with monophasic flow distally. Right anterior tibial artery, monophasic waveform, 13, 17, and 9 cm/sec. Right dorsalis pedis artery, not visible. Right peroneal artery, monophasic waveform, 11 and 12 cm/sec. Left common femoral artery: Left common femoral artery, monophasic waveform, 136 cm/sec. Left deep femoral artery: Left deep femoral artery, monophasic waveform, 99 cm/sec. Left superficial femoral artery: Left superficial femoral artery, monophasic waveform, 46, 81, 219, and 63 cm/sec. Left popliteal artery: Left popliteal artery, monophasic waveform, 47 and 23 cm/sec. Left calf/foot arteries: Left anterior tibial artery, monophasic waveform, 29 and 21 cm/sec. Left peroneal artery, monophasic waveform, 21 and 15 cm/sec. Left posterior tibial artery, monophasic waveform, 10- 20 cm/sec. Left dorsalis pedis artery, monophasic waveform, 10 cm/sec. Soft tissues: Unremarkable. 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 Elevated velocity in the proximal to mid left superficial femoral artery of 218 cm/sec consistent with at least 50-74% stenosis. Monophasic flow with slow velocities in the calf vessels as described above bilaterally. Consider arterial insufficiency. Electronically signed by: Nikko Farooq MD 09/27/25 23:20 PM
[2025-09-28 04:44] LABS: Hematocrit (blood only) 25.6 % (37.0-47.0); Hemoglobin 8.4 g/dL (12.0-16.0); Immature Granulocytes # (auto) 0.03 K/uL (0.01-0.20); Immature Granulocytes % (auto) 0.3 %; Mean Corpuscular Hemoglobin 30.9 pg (25.0-34.0); Mean Corpuscular Volume 94.1 fL (80.0-100.0); Platelet Count 180 K/uL (130-400); RDW Standard Deviation 60.6 fL (36.4-46.3); Red Blood Count 2.72 M/uL (4.20-5.40); White Blood Count 9.85 K/ul (4.8-10.8)
[2025-09-28 05:04] LABS: Alanine Aminotransferase 21.0 U/L (7-52); Albumin Level 3.1 gm/dl (3.4-5.0); Alkaline Phosphatase 106.0 U/L (34-104); Anion Gap 8.0 (3-11); Bilirubin,Total 3.0 mg/dl (0.2-1.0); Blood Urea Nitrogen 19.0 mg/dl (6-23); Calcium 8.8 mg/dl (8.6-10.3); Carbon Dioxide 22.0 mmol/L (21-32); Chloride 98.0 mmol/L (98-107); Creatinine Clr Calc Pharmacy 6.2 ml/min; Glucose 142.0 mg/dl (70-99(Fasting)); Magnesium 2.3 mg/dl (1.7-2.4); Potassium 4.1 mmol/L (3.5-5.1); Sodium 128.0 mmol/L (136-145); Total Protein 7.3 gm/dl (6.0-8.3)
[2025-09-28 05:16] LABS: INR 2.3 (0.9-1.1); Partial Thromboplastin Time 42 Seconds (21-31); Prothrombin Time 22.8 Seconds (9.0-12.0)
--- NOTE | 2025-09-28 07:21 | Hospitalist Progress Note ---
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: Plan In summary this is a an 80-year-old female who presented from their PCPs office by referral found to have severe sepsis with multiple organ dysfunction admitted to the intensive care unit for continued care #Severe Sepsis with MOD // Left 5th toe necrosis // Type II LA secondary to shock // Coagulopathy // Hyperbilirubinemia Presented with leukocytosis, tachypnea, presumed hypoxia given the patient's clinical appearance, tachycardia, persistent hypotension; suspected source to primarily be the right fifth toe as further discussed below; does have notable hydrothorax as discussed further below, underlying pneumonia cannot be excluded though patient does not present with symptoms typical of a community-acquired pneumonia making this less likely; in the emergency department the patient was given a 500 mL liter intravenous fluid bolus though no further fluids were administered given the patient is dependent on hemodialysis for volume control, subsequently was started on norepinephrine; troponin trend steady, not suggestive of a severe myocardial injury; fibrinogen measure was unremarkable, not consistent with DIC; ESR and CRP elevated, perhaps consequential of the patient's ESRD but acute infectious inflammatory processes involving their toe and biliary tree cannot be excluded - Nursing to notify attending physician of maintained MAP of less than 65 mmHg - Continue with volume resuscitation guided by polysomnographer consultation - Continue vancomycin with pharmacy consultation - Continue cefepime 2 g IV every 8 hours - Blood cultures without growth at 24 hours - Follow daily CMP, CBC with differential, magnesium, phosphorus, coagulation panel - Abdominal US with findings concerning of choledocholithiasis, but unable to fully assess the gallbladder; MRCP with evidence of cholelithiasis without additional acute hepatobiliary pathology MRI foot without evidence of osteomyelitis [facility] consulted #Right hydrothorax // Perioral cyanosis // Persistent hypoxia Plain film of the patient's chest did reveal right-sided hydrothorax in the ED; CT chest confirmed large right pleural effusion; hopeful for thoracentesis once deemed appropriate by Intensive Care based on time since Eliquis and coagulopathy Maintain O2 saturation greater than 90% if pulse oximetry is able to be established; patient does not have any long-term medical conditions that would require judicious use of oxygen supplementation to avoid hypercapnic respiratory failure #Chronic diarrhea The patient is been struggling with chronic diarrhea for greater than 2 months, resulting in significant intravascular volume depletion; unclear cause at this time, not likely to be infectious given the duration of symptoms; could be related to the patient's allopurinol, but unable to determine the duration of medical treatment with this medication; C difficile gene positive but toxin negative; at this time, primarily focus on supportive care with respect to this, volume resuscitation as above, and further diagnostic testing to follow based on clinical course #ESRD on HD Established on hemodialysis Mondays, Wednesdays, Fridays; not established with a architectural project captain who practices at this facility Consult nephrology for assistance with scheduling hemodialysis #Type II diabetes mellitus with peripheral angiopathy HbA1c 4.1%, suggestive of manager terminal hypoglycemia; could be factitious with the patient's anemia, but this is not common; the patient does have elevated bilirubin, but no other findings at this time to suggest hemolysis which could also cause a factitiously low A1c measure; follow glycemic protocol in ICU; hold home medication regimen #Atrial fibrillation, permanent Chronic condition; holding Eliquis in the setting of coagulopathy and possible thoracentesis Admission and Anticipated Discharge Date Admission Date: September 26, 2025 Subjective Ms. Mahmood is an 80-year-old female Whose active medical conditions include end- stage renal disease established on hemodialysis M/W/F, hypothyroidism, heart failure with preserved ejection fraction and atrial fibrillation, type 2 diabetes mellitus with peripheral angiopathy who presents to the [facility] on 09/26 by referral of their primary care physician due to a significant right toe injury. No acute overnight events; endorses improved appetite today, though unable to safely eat with dual pressor requirement Review of Systems Review of Systems: Review of cardiovascular, pulmonary, constitutional, gastrointestinal, genitourinary, neurologic, musculoskeletal systems was unremarkable except for pertinent positive and negative findings discussed above Physical Exam Physical Exam: General: Elderly female in mild acute distress Vital Signs: Reviewed; mean arterial pressure in the range of 60-70 mmHg; heart rate variable in the range of 90 to 110 bpm with irregular RR interval noted on telemetry; pulse oximetry not able to adequately assess oxygen saturation due to severity of peripheral arterial disease; tachypneic with a respiratory rate in the range of 22-31 RPM HEENT: Scleral icterus; pupils equally round and reactive to light; extraocular motion intact; dry mucous membranes Neck: Flattened jugular veins Pulmonary: Symmetric chest wall excursion without restriction; absent air movement throughout the entire right lung field, air movement is present throughout the left field without associated abnormal lung sounds Cardiovascular: Tachycardic rate with irregular rhythm, murmur present associated with AV fistula without additional murmurs, rubs, or gallops; bilateral radial and posterior tibial pulse 1+; normal capillary refill in all nailbeds; right brachial AV fistula with palpable thrill and audible bruit; right femoral central venous catheter with some oozing around the access site but otherwise without concerning findings Gastrointestinal: Soft, protuberant; nontender; low-frequency normal pitch bowel sounds throughout Neurologic: Cranial nerves II through XII grossly intact; no discernible focal weakness no paresthesia though with general anasarca Skin: Left fifth phalange distal of the PIP is frankly necrotic, cool to touch, without tenderness; along the medial aspect there is a linear laceration with coagulated blood with sanguinous oozing; previously seen erythema involving the adjacent fourth toe has softened, without tenderness to palpation nor radiating heat; there is no appreciable lymphangitis of the affected extremity; jaundice to the superior chest wall Results & Data Results & Data Vital Signs (Past 12 Hours) Vital Signs Pulse Resp BP Pulse Ox O2 Del Method O2 Flow Rate 09/28/25 06:00 96 H 17 100 09/28/25 05:47 85/48 L 09/28/25 05:47 85/48 L 09/28/25 05:47 85/48 L 09/28/25 05:47 85/48 L 09/28/25 05:47 85/48 L 09/28/25 05:46 43/24 L 09/28/25 05:45 91 H 28 H 98 09/28/25 05:33 85 17 100 09/28/25 05:33 89/47 L 09/28/25 05:33 89/47 L 09/28/25 05:33 89/47 L 09/28/25 05:33 89/47 L 09/28/25 05:33 89/47 L 09/28/25 05:16 118/44 L 09/28/25 05:16 118/44 L 09/28/25 05:16 118/44 L 09/28/25 05:16 118/44 L 09/28/25 05:16 118/44 L 09/28/25 05:15 99 H 17 100 09/28/25 05:00 97/47 L 09/28/25 05:00 97/47 L 09/28/25 05:00 97/47 L 09/28/25 05:00 97/47 L 09/28/25 05:00 97/47 L 09/28/25 05:00 90 23 100 09/28/25 04:30 97 H 24 100 09/28/25 04:30 93/62 L 09/28/25 04:30 93/62 L 09/28/25 04:30 93/62 L 09/28/25 04:30 93/62 L 09/28/25 04:30 93/62 L 09/28/25 04:16 92/53 L 09/28/25 04:16 92/53 L 09/28/25 04:16 92/53 L 09/28/25 04:16 92/53 L 09/28/25 04:15 79 15 100 09/28/25 04:05 97/61 L 09/28/25 04:05 97/61 L 09/28/25 04:05 97/61 L 09/28/25 04:05 97/61 L 09/28/25 04:05 97/61 L 09/28/25 04:03 97 H 22 100 09/28/25 04:00 91 H 32 H 91 09/28/25 03:00 97 H 23 96 09/28/25 02:37 150/52 H 09/28/25 02:37 150/52 H 09/28/25 02:37 150/52 H 09/28/25 02:37 150/52 H 09/28/25 02:37 150/52 H 09/28/25 02:36 101 H 26 H 85 L 09/28/25 02:17 103/66 09/28/25 02:17 103/66 09/28/25 02:17 103/66 09/28/25 02:17 103/66 09/28/25 02:15 92 H 22 88 L 09/28/25 02:01 104/42 L 09/28/25 02:01 104/42 L 09/28/25 02:01 104/42 L 09/28/25 02:01 104/42 L 09/28/25 02:01 104/42 L 09/28/25 02:00 100 H 30 H 88 L 09/28/25 01:46 120/56 L 09/28/25 01:46 120/56 L 09/28/25 01:46 120/56 L 09/28/25 01:46 120/56 L 09/28/25 01:46 120/56 L 09/28/25 01:45 90 16 99 09/28/25 01:34 62/47 L 09/28/25 01:34 62/47 L 09/28/25 01:34 62/47 L 09/28/25 01:34 62/47 L 09/28/25 01:33 80 39 H 91 09/28/25 01:31 67/53 L 09/28/25 01:31 67/53 L 09/28/25 01:31 67/53 L 09/27/25 23:45 94/65 L 09/27/25 23:45 94/65 L 09/27/25 23:45 94/65 L 09/27/25 23:45 94/65 L 09/27/25 23:45 94/65 L 09/27/25 23:45 85 25 H 88 L 09/27/25 23:37 89/51 L 09/27/25 23:37 89/51 L 09/27/25 23:37 89/51 L 09/27/25 23:37 89/51 L 09/27/25 23:37 89/51 L 09/27/25 23:36 66/36 L 09/27/25 23:36 88 28 H 88 L 09/27/25 23:30 90 30 H 09/27/25 21:46 96/59 L 09/27/25 21:46 96/59 L 09/27/25 21:45 86 26 H 91 09/27/25 21:31 99/49 L 09/27/25 21:31 99/49 L 09/27/25 21:31 99/49 L 09/27/25 21:31 99/49 L 09/27/25 21:31 99/49 L 09/27/25 21:30 90 20 95 09/27/25 21:15 113/59 L 09/27/25 21:15 113/59 L 09/27/25 21:15 113/59 L 09/27/25 21:15 113/59 L 09/27/25 21:15 113/59 L 09/27/25 21:15 86 21 98 09/27/25 21:00 99 H 32 H 76 L 09/27/25 20:45 85 24 78 L 09/27/25 20:45 98/54 L 09/27/25 20:45 98/54 L 09/27/25 20:45 98/54 L 09/27/25 20:45 98/54 L 09/27/25 20:45 98/54 L 09/27/25 20:30 97/52 L 09/27/25 20:30 97/52 L 09/27/25 20:30 97/52 L 09/27/25 20:30 97/52 L 09/27/25 20:30 97/52 L 09/27/25 20:30 80 26 H 65 L 09/27/25 20:15 84 27 H 77 L 09/27/25 20:15 101/51 L 09/27/25 20:15 101/51 L 09/27/25 20:00 Nasal Cannula 4 Laboratory Results Resolved leukocytosis with remaining neutrophilic predominance Hemoglobin trend 9.2 to 8.4 INR 2.3 Sodium 128 from 131 Positive C. difficile gene, absent toxin Diagnostic Findings Pending interpretation of MRI foot and MRCP Arterial duplex confirms PAD PG Care Time/CCT Total # of Minutes Spent Total Time Spent with Patient: Total time spent is greater than 50% in coordination of care (as documented) at patient's floor/unit and/or counseling patient: Coding Level of Care Code 23155 SUB INP/OBS CARE 3/50MIN Diagnoses Sepsis with multiple organ dysfunction (MOD) A41.9; R65.20 Severe sepsis A41.9; R65.20 Toe necrosis I96 Type 2 myocardial infarction due to shock R57.9; I21.A1 Coagulopathy D68.9 Hyperbilirubinemia E80.6 Hydrothorax J94.8 ESRD on hemodialysis N18.6; Z99.2 Longstanding persistent atrial fibrillation I48.11 Atrial fibrillation type: longstanding persistent Type II diabetes mellitus with peripheral angiopathy E11.51 Mixed hyperlipidemia E78.2 Hyperlipidemia type: mixed hyperlipidemia Chronic gout due to renal impairment without tophus, unspecified site [id number].30X0 Chronicity: chronic Gout site: unspecified site 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
--- NOTE | 2025-09-28 08:52 | Magnetic Resonance Report ---
EXAM: MR MRCP CLINICAL HISTORY: Dilated CBD; questionable choledocho TECHNIQUE: Multiplanar multisequence magnetic resonance imaging of the abdomen without intravenous contrast. COMPARISON: None. FINDINGS: Liver: Normal size and morphology. Homogeneous signal intensity on T2-weighted images. No focal hepatic lesions. Gallbladder: 5.7 mm signal dropout seen in the gallbladder representing cholelithiasis. Bile Ducts: Intrahepatic bile ducts are normal in caliber. The common bile duct is normal in caliber, measuring up to 5 mm with no evidence of strictures or filling defects. No evidence of choledocholithiasis. Pancreas: Normal size and contour. Homogeneous signal intensity on T2-weighted images. No masses or cystic lesions. Pancreatic Duct: The pancreatic duct is normal in caliber. No evidence of ductal dilatation or filling defects. Spleen: Normal size and appearance. Homogeneous signal intensity. Kidneys: The left kidney is small and atrophic with multiple renal cysts. The right kidney is not visualized; correlate clinically. No hydronephrosis identified in the visualized kidney. Surrounding Structures: Moderate ascites. Cardiomegaly with a minimal pericardial effusion. Dilated inferior vena cava and congested hepatic veins. Large right pleural effusion with underlying passive atelectasis/collapse of the adjacent right lung; Further chest evaluation recommended. Mild left pleural effusion. Diffuse subcutaneous fat stranding with fluid signal in the subcutaneous tissues. IMPRESSION: 1. Normal-caliber common bile duct and no intrahepatic biliary dilatation. 2. Large right pleural effusion with associated passive right lung collapse; dedicated chest imaging is recommended. 3. Cardiomegaly with minimal pericardial effusion. 4. Moderate ascites with dilated inferior vena cava and congested hepatic veins, suggestive of elevated right-sided pressures or volume overload. 5. Right kidney not visualized; correlate clinically. 6. Small, atrophic left kidney with multiple cysts. 7. Cholelithiasis. Ultrasound correlation is advised. 8. Mild left pleural effusion. 9. Diffuse subcutaneous edema. Electronically signed by Abhay Yancey 09-28-2025 12:53 AM
--- NOTE | 2025-09-28 08:52 | Magnetic Resonance Report ---
EXAM: MR foot RT w/o con CLINICAL HISTORY: r/o osteomyelitis TECHNIQUE: MRI of the right foot was performed without intravenous contrast administration. Sequences obtained include: Sagittal T1-weighted, Sagittal T2-weighted, Coronal T1-weighted, Coronal T2-weighted, Axial T1-weighted, and Axial T2-weighted. COMPARISON: CT performed in the same setting FINDINGS: Bone: Midfoot arthropathy is most prominent at the 2nd tarsometatarsal joint as well as the medial intertarsal joints with subchondral cystic change and marked joint space narrowing. The distal interphalangeal joints of the first and second toes show minimal plantar-sided joint effusions with minimal focal T2 hyperintensity in the distal becky without cortical erosions or destructive changes. Similar minimal signal alteration at the distal becky of the fourth and fifth distal phalanges may reflect artifact. The medial intercuneiform is displaying cortical irregularities with subchondral cystic changes; however, it is displaying maintained signal intensity with no features of osteomyelitis No marrow-replacing lesion is identified. No acute fracture. No evidence of osteolysis or aggressive periosteal reaction to suggest active osteomyelitis. Tendons: Normal MRI appearance of the scanned compartmental longitudinal tendons. Muscles: The intrinsic plantar musculature of the foot is negative for myositis, intramuscular tear, or atrophy. Soft Tissue: Diffuse soft tissue edema involving the intrinsic and extrinsic muscles and subcutaneous fat planes No focal fluid collection. IMPRESSION: 1. Midfoot arthropathy is most prominent at the 2nd tarsometatarsal joint as well as the medial intertarsal joints with subchondral cystic change and marked joint space narrowing. 2. The medial intercuneiform is displaying cortical irregularities with subchondral cystic changes; however, it is displaying maintained signal intensity with no features of osteomyelitis 3. Minimal effusions at the interphalangeal joints of the first and second toes. 4. Diffuse soft tissue edema involving the intrinsic and extrinsic muscles and subcutaneous fat planes 5. These findings match the prior CT study. Electronically signed by Abhay Yancey 09-28-2025 01:16 AM
--- NOTE | 2025-09-28 08:55 | Critical Care Progress Note ---
Date of Service September 28, 2025 Assessment & Plan (1) Shock: (2) Type 2 myocardial infarction due to shock: (3) Sepsis with multiple organ dysfunction (MOD): (4) Pleural effusion: (5) Atrial fibrillation: (6) ESRD on hemodialysis: (7) Hypothyroidism: (8) Severe sepsis: (9) Toe necrosis: Plan Reason Critically Ill: 80 YOF with ESRD - presents hypotensive with concern of septic shock with multiorgan dysfunction what appears as new right sided pleural effusion, on Eliquis for Afib. Requiring vasopressor support. Neuro - No acute needs CAM ICU: NEGATIVE - Continue with supportive care Cardiac - Shock with multiorgan dysfunction, Hx: Afib with chronic DOAC, heart murmur, HTN --Shock Likely septic Got 1.5 L crystalloid in the ED Follow-up 2D echo Continue with vasopressor support to keep MAP greater than 65 --Elevated troponin Likely type II AL Continue to monitor --A-fib On Eliquis at home Last dose of Eliquis was 09/26/2025 morning --Peripheral vascular disease HAO bilateral lower extremity shows moderate to severe stenosis bilaterally Will get vascular surgery involved once the patient is more stable Respiratory - Hypoxic respiratory failure, Pleural effusion CT chest 09/26/2025 personally reviewed: Large right-sided pleural effusion with compressive atelectasis of the right lower lobe Questionable infiltrate/mass/fibrosis in the right upper lobe on the periphery Cardiomegaly No significant mediastinal lymphadenopathy --Large right-sided pleural effusion No previous imaging to compare I do not think pleural effusion is playing a major part in the patient's clinical presentation I do think she is going to benefit from thoracentesis -- Abnormal chest CT Patient does have compressive atelectasis of the right middle and lower lobe but she also has peripheral opacity of the right upper lobe which could be atelectasis scarring or mass I will try to get images from before to compare GI - Elevated LFT, Elevated bili, mild ascites, Diarrhea. HX: Colon cancer - resection only --Transaminitis with elevated bilirubin Bilirubin is mostly unconjugated Elevation of AST is likely from shock Abdominal ultrasound did not show any acute findings especially related to gallbladder, they do recommend CT of the abdominal pelvis which we will consider when the patient is more stable --Diarrhea Stool BioFire negative for everything It was positive for C. difficile antigen, toxin negative Patient has a history of C. difficile in the past -- Abdominal ascites Likely from end-stage renal disease RENAL/LYTES - -- ESRD- anuric on dialysis MWF Renally dose medications - anuric no acute need ENDO - --Hypothyroidism On levothyroxine 75 mcg at home -- ICU hyperglycemia protocol HEME - Chronic use of anticoagulation, HX: Colon cancer - as above- hold Eliquis- consider heparin in meantime for stroke prevention --History of colon cancer S/p resection Reports last colonoscopy was ~5 years ago- with diarrhea, reported (+) Hemoccult, and other GI symptoms related to loss of appetite and other associated GI symptoms ID - --Right lower extremity toe infection Follow-up blood cultures CRP 12.6 Procalcitonin 1.28 Wound care, Ortho consulted We will change cefepime to Zosyn Continue with vancomycin -- DNI --Prophylaxis VTE: IPCs, on Eliquis at home, currently on hold GI: None Lines: Right femoral TLC Diet: Clear liquid Plan: In/out: +1.7 liter, +3.5 L since coming to the hospital Continue with vasopressor support with MAP greater than 65 I do not think pleural effusion is playing a major part in the patient's clinical presentation I do think she is going to benefit from thoracentesis, will try to do with 48-72 hours since her last dose of Eliquis especially given that she is end-stage renal disease which will be 09/29/2025 HAO bilateral lower extremity shows moderate to severe stenosis bilaterally Will get vascular surgery involved once the patient is more stable Will change cefepime to Zosyn as there is no anaerobic coverage right now Will consider adding vancomycin 125 mg daily given the history of C. difficile, patient being on antibiotics and if she is still having significant loose stools. I have personally spent 37 minutes of critical care time in the direct management of this patient. This is a life/limb threatening event. This includes time spent evaluating patient, direct bedside care, chart review, placing orders, interpretation of diagnostic studies, discussion with consultants, patient, and family members, as well as other required patient management activities. This time is exclusive of all separately billable procedures, and teaching time and separate from and in addition to any other critical care service time. Thank you for allowing us to participate in the care of this patient. Please refer to my attending physician's documentation for any further recommendations. Admission and Anticipated Discharge Date Admission Date: September 26, 2025 Subjective Patient seen and examined at bedside. No acute distress, no adverse events overnight She was a little groggy at the time of examination As per the nurse patient did not have a good night sleep She was saturating 93-94% on 3 L nasal cannula Still having loose bowel movements. On 0.06 of Levophed and 0.04 to vasopressin. Systolic blood pressure was in the 90s with MAP in the mid 60s at the time of examination Review of Systems 2 Review of Systems: All systems reviewed & are unremarkable except as noted in Subjective Physical Exam 2 Physical Exam: Constitutional: No acute distress HEENT: EOMI, PERRLA Respiratory system: Decreased air entry on the right side, no wheeze, no rhonchi, positive crackles bilateral lower lobe CVS: S1-S2 positive, no murmurs or gallops Abdomen: Soft, nontender, nondistended, positive bowel sounds x4 Extremities: +1 pulses bilaterally radialis/ dorsalis pedis, right foot fifth toe cyanotic with bluish/greenish hue. Erythematous on the right lateral short, positive rubor, positive calor, no dolor Neuro: Awake alert oriented x3 Psych: Normal mood and affect G/U: No Lopez Skin: no rashes, warm and dry Lymphatic: no cervical or axillary lymphadenopathy Results & Data Results & Data Vital Signs (Past 12 Hours) Vital Signs Temp Pulse Resp BP Pulse Ox 09/28/25 08:40 36.4 C L 09/28/25 06:00 96 H 17 100 09/28/25 05:47 85/48 L 09/28/25 05:47 85/48 L 09/28/25 05:47 85/48 L 09/28/25 05:47 85/48 L 09/28/25 05:47 85/48 L 09/28/25 05:46 43/24 L 09/28/25 05:45 91 H 28 H 98 09/28/25 05:33 85 17 100 09/28/25 05:33 89/47 L 09/28/25 05:33 89/47 L 09/28/25 05:33 89/47 L 09/28/25 05:33 89/47 L 09/28/25 05:33 89/47 L 09/28/25 05:16 118/44 L 09/28/25 05:16 118/44 L 09/28/25 05:16 118/44 L 09/28/25 05:16 118/44 L 09/28/25 05:16 118/44 L 09/28/25 05:15 99 H 17 100 09/28/25 05:00 97/47 L 09/28/25 05:00 97/47 L 09/28/25 05:00 97/47 L 09/28/25 05:00 97/47 L 09/28/25 05:00 97/47 L 09/28/25 05:00 90 23 100 09/28/25 04:30 97 H 24 100 09/28/25 04:30 93/62 L 09/28/25 04:30 93/62 L 09/28/25 04:30 93/62 L 09/28/25 04:30 93/62 L 09/28/25 04:30 93/62 L 09/28/25 04:16 92/53 L 09/28/25 04:16 92/53 L 09/28/25 04:16 92/53 L 09/28/25 04:16 92/53 L 09/28/25 04:15 79 15 100 09/28/25 04:05 97/61 L 09/28/25 04:05 97/61 L 09/28/25 04:05 97/61 L 09/28/25 04:05 97/61 L 09/28/25 04:05 97/61 L 09/28/25 04:03 97 H 22 100 09/28/25 04:00 91 H 32 H 91 09/28/25 03:00 97 H 23 96 09/28/25 02:37 150/52 H 09/28/25 02:37 150/52 H 09/28/25 02:37 150/52 H 09/28/25 02:37 150/52 H 09/28/25 02:37 150/52 H 09/28/25 02:36 101 H 26 H 85 L 09/28/25 02:17 103/66 09/28/25 02:17 103/66 09/28/25 02:17 103/66 09/28/25 02:17 103/66 09/28/25 02:15 92 H 22 88 L 09/28/25 02:01 104/42 L 09/28/25 02:01 104/42 L 09/28/25 02:01 104/42 L 09/28/25 02:01 104/42 L 09/28/25 02:01 104/42 L 09/28/25 02:00 100 H 30 H 88 L 09/28/25 01:46 120/56 L 09/28/25 01:46 120/56 L 09/28/25 01:46 120/56 L 09/28/25 01:46 120/56 L 09/28/25 01:46 120/56 L 09/28/25 01:45 90 16 99 09/28/25 01:34 62/47 L 09/28/25 01:34 62/47 L 09/28/25 01:34 62/47 L 09/28/25 01:34 62/47 L 09/28/25 01:33 80 39 H 91 09/28/25 01:31 67/53 L 09/28/25 01:31 67/53 L 09/28/25 01:31 67/53 L 09/27/25 23:45 94/65 L 09/27/25 23:45 94/65 L 09/27/25 23:45 94/65 L 09/27/25 23:45 94/65 L 09/27/25 23:45 94/65 L 09/27/25 23:45 85 25 H 88 L 09/27/25 23:37 89/51 L 09/27/25 23:37 89/51 L 09/27/25 23:37 89/51 L 09/27/25 23:37 89/51 L 09/27/25 23:37 89/51 L 09/27/25 23:36 66/36 L 09/27/25 23:36 88 28 H 88 L 09/27/25 23:30 90 30 H 09/27/25 21:46 96/59 L 09/27/25 21:46 96/59 L 09/27/25 21:45 86 26 H 91 09/27/25 21:31 99/49 L 09/27/25 21:31 99/49 L 09/27/25 21:31 99/49 L 09/27/25 21:31 99/49 L 09/27/25 21:31 99/49 L 09/27/25 21:30 90 20 95 09/27/25 21:15 113/59 L 09/27/25 21:15 113/59 L 09/27/25 21:15 113/59 L 09/27/25 21:15 113/59 L 09/27/25 21:15 113/59 L 09/27/25 21:15 86 21 98 09/27/25 21:00 99 H 32 H 76 L Laboratory Results 09/28/25 04:12 09/28/25 04:12 Coding Level of Care Code 10323 CRITICAL CARE 1ST 30-74M Diagnoses Shock R57.9 Type 2 myocardial infarction due to shock R57.9; I21.A1 Sepsis with multiple organ dysfunction (MOD) A41.9; R65.20 Pleural effusion J90 Longstanding persistent atrial fibrillation I48.11 Atrial fibrillation type: longstanding persistent ESRD on hemodialysis N18.6; Z99.2 Hypothyroidism E03.9 Severe sepsis A41.9; R65.20 Toe necrosis I96 (5) Atrial fibrillation Atrial fibrillation type: longstanding persistent Qualified Code(s): I48.11 - Longstanding persistent atrial fibrillation
--- NOTE | 2025-09-28 09:45 | Pharmacy Report ---
Pharmacy PK ABX Note - Date of Service September 28, 2025 - Assessment and Plan Assessment 09/28: * Day #3 vancomycin. Cefepime changed to Zosyn today for anaerobic coverage. Continues on 2 vasopressors. Blood cultures NGTD. Foot MRI with no evidence of osteo. No plan for HD today. 09/27: * 80 year old F receiving vancomycin and cefepime empirically in setting of septic shock. Blood cultures pending. ESRD on iHD MWF. Plan Vancomycin * Loading dose: 1000 mg IV x 1 (09/26 julien) * Random level this AM, 13.9mcg/ml. Goal pre-HD level: 15-20mcg/mL. Dose by levels in setting of HD. * Vancomycin 1gm IV X 1 now - repeat level in AM to guide further dosing. Pharmacy will continue to follow and will adjust dose/frequency as necessary. Thank you.
[2025-09-28] MEDS: 4.5GM X1 IV ONE (09:56)
[2025-09-28] MEDS: VANCOMYCIN HCL / NSS 1,000 MG/270 ML BAG IV ONE (10:13)
[2025-09-28] MEDS ORDERED: CHERRY SYRUP 5 ML UDP PO STA (11:07)
--- NOTE | 2025-09-28 11:07 | Nephrology Progress Note ---
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 Maintained on IHD MWF at [facility]. BP hypotensive and intravascularly volume depleted. Electrolytes normal. No emergent indication at this time. Goal is to maintain slightly positive fluid balance. Document strict I/O's. HD via RUE AVF. Repeat serum metabolic profile tomorrow AM. Medications are appropriately dosed for kidney dysfunction. Preliminary orders for HD tomorrow have been entered into the EHR. (2) Sepsis with multiple organ dysfunction (MOD): Plan: Remains on vancomycin. Cefepime-->Zosyn. Cultures NGTD. Vancomycin dosing with IHD based on levels. Plan of checking level prior to HD tomorrow AM. (3) Atrial fibrillation: Plan: Rate controlled. Eliquis held. (4) Toe necrosis: (5) Hydrothorax: (6) Anemia: Plan: Records from [facility] requested (unavailable until Monday). Ligia reports recent concern for GI bleed. No obvious melena or hematochezia. SUSHMA therapy will be coordinated with HD. Admission and Anticipated Discharge Date Admission Date: September 26, 2025 Subjective No acute events overnight. Afebrile. Ligia reports feeling weak and slightly confused this AM. She did not sleep well. She denies pain. She continues to have loose watery bowel movements. She denies any abdominal pain. No chest pains or palpitations. She is breathing comfortably. Ligia remains in the ICU on vasopressin + Levophed gtt. Review of Systems Review of Systems: All systems reviewed & are unremarkable except as noted in HPI & below Physical Exam Constitutional: well developed, + thin and + frail appearing; no acute distress Eyes: no scleral abnormality and no corneal abnormality ENMT: external ear and nose normal, oropharynx normal Mouth: + dry oral mucous membranes Neck: normal visual inspection and trachea midline Respiratory: normal respiratory effort Auscultation: lungs clear to auscultation bilaterally Cardiovascular: Rate/Rhythm: + irregularly irregular Heart Sounds: normal S1 and normal S2 Extremities: + pedal edema and + AV fistula (+thrill and bruit) Musculoskeletal: Extremities: no cyanosis and no clubbing Skin: + turgor decreased; no jaundice Neurologic: Motor/Sensory: no tremor and no asterixis Psychiatric: Orientation: alert and oriented x 3 Results & Data Vital Signs (Past 12 Hours) Vital Signs Temp Pulse Resp BP Pulse Ox O2 Del Method O2 Flow Rate 09/28/25 09:00 85 23 99 Nasal Cannula 3 09/28/25 08:40 36.4 C L 09/28/25 08:34 112/44 L 09/28/25 08:33 86 21 100 09/28/25 08:30 91 H 26 H 97 09/28/25 08:00 119/58 L 09/28/25 08:00 119/58 L 09/28/25 08:00 95 H 29 H 100 3 09/28/25 07:33 99 H 33 H 99 09/28/25 07:30 86 27 H 100 09/28/25 07:01 103/50 L 09/28/25 07:00 94 H 20 91 Room Air 3 09/28/25 06:45 89 22 97 09/28/25 06:00 96 H 17 100 09/28/25 05:47 85/48 L 09/28/25 05:47 85/48 L 09/28/25 05:47 85/48 L 09/28/25 05:47 85/48 L 09/28/25 05:47 85/48 L 09/28/25 05:46 43/24 L 09/28/25 05:45 91 H 28 H 98 09/28/25 05:33 85 17 100 09/28/25 05:33 89/47 L 09/28/25 05:33 89/47 L 09/28/25 05:33 89/47 L 09/28/25 05:33 89/47 L 09/28/25 05:33 89/47 L 09/28/25 05:16 118/44 L 09/28/25 05:16 118/44 L 09/28/25 05:16 118/44 L 09/28/25 05:16 118/44 L 09/28/25 05:16 118/44 L 09/28/25 05:15 99 H 17 100 09/28/25 05:00 97/47 L 09/28/25 05:00 97/47 L 09/28/25 05:00 97/47 L 09/28/25 05:00 97/47 L 09/28/25 05:00 97/47 L 09/28/25 05:00 90 23 100 09/28/25 04:30 97 H 24 100 09/28/25 04:30 93/62 L 09/28/25 04:30 93/62 L 09/28/25 04:30 93/62 L 09/28/25 04:30 93/62 L 09/28/25 04:30 93/62 L 09/28/25 04:16 92/53 L 09/28/25 04:16 92/53 L 09/28/25 04:16 92/53 L 09/28/25 04:16 92/53 L 09/28/25 04:15 79 15 100 09/28/25 04:05 97/61 L 09/28/25 04:05 97/61 L 09/28/25 04:05 97/61 L 09/28/25 04:05 97/61 L 09/28/25 04:05 97/61 L 09/28/25 04:03 97 H 22 100 09/28/25 04:00 91 H 32 H 91 09/28/25 03:00 97 H 23 96 09/28/25 02:37 150/52 H 09/28/25 02:37 150/52 H 09/28/25 02:37 150/52 H 09/28/25 02:37 150/52 H 09/28/25 02:37 150/52 H 09/28/25 02:36 101 H 26 H 85 L 09/28/25 02:17 103/66 09/28/25 02:17 103/66 09/28/25 02:17 103/66 09/28/25 02:17 103/66 09/28/25 02:15 92 H 22 88 L 09/28/25 02:01 104/42 L 09/28/25 02:01 104/42 L 09/28/25 02:01 104/42 L 09/28/25 02:01 104/42 L 09/28/25 02:01 104/42 L 09/28/25 02:00 100 H 30 H 88 L 09/28/25 01:46 120/56 L 09/28/25 01:46 120/56 L 09/28/25 01:46 120/56 L 09/28/25 01:46 120/56 L 09/28/25 01:46 120/56 L 09/28/25 01:45 90 16 99 09/28/25 01:34 62/47 L 09/28/25 01:34 62/47 L 09/28/25 01:34 62/47 L 09/28/25 01:34 62/47 L 09/28/25 01:33 80 39 H 91 09/28/25 01:31 67/53 L 09/28/25 01:31 67/53 L 09/28/25 01:31 67/53 L 09/27/25 23:45 94/65 L 09/27/25 23:45 94/65 L 09/27/25 23:45 94/65 L 09/27/25 23:45 94/65 L 09/27/25 23:45 94/65 L 09/27/25 23:45 85 25 H 88 L 09/27/25 23:37 89/51 L 09/27/25 23:37 89/51 L 09/27/25 23:37 89/51 L 09/27/25 23:37 89/51 L 09/27/25 23:37 89/51 L 09/27/25 23:36 66/36 L 09/27/25 23:36 88 28 H 88 L 09/27/25 23:30 90 30 H Laboratory Results Laboratory Results - last 24 hr 09/27/25 09/27/25 09/27/25 07:20 11:26 16:35 WBC RBC Hgb Hct MCV MCH MCHC RDW Std Deviation RDW Coeff of Leilani Plt Count MPV Immature Gran % (Auto) Neut % (Auto) Lymph % (Auto) [facility] % (Auto) Eos % (Auto) Baso % (Auto) Neut # (Auto) Lymph # (Auto) [facility] # (Auto) Eos # (Auto) Baso # (Auto) Immature Gran # (Auto) PT INR APTT PTT Ratio Sodium Potassium Chloride Carbon Dioxide Anion Gap BUN Creatinine Est Cr Clr Drug Dosing eGFR BUN/Creatinine Ratio Glucose POC Glucose 119 H 132 H POC Glucose (other) Calcium Phosphorus Magnesium Total Bilirubin Direct Bilirubin AST ALT Alkaline Phosphatase Total Protein Albumin TSH 2.594 Stl C. cayetanensis PCR Stool Rotavirus A PCR Stl Adenov F 40/41 PCR Stool Astrovirus (PCR) Stool Campylobacter PCR Stl C. diff Tox B Gene Stl C.difficile Tox A&B Stl C. diff 027-NAP1-[id number] Stool Cryptosporidium PCR Stl E.coli Shiga Tox PCR Stl Enterotoxigenic E PCR Stool EPEC (PCR) Stool EAEC (PCR) Stl E. histolytica PCR Stool Giardia Lamblia PCR Stool Salmonella PCR Stool Sapovirus (PCR) Stl P. shigelloides PCR Stl Shigella/EIEC PCR St Y.enterocolitica PCR Stool Vibrio (PCR) Stl Vibrio cholerae PCR Stl Norovirus GI/GII PCR Random Vancomycin 09/27/25 09/27/25 09/28/25 21:32 Unknown 04:12 WBC 9.85 RBC 2.72 L Hgb 8.4 L Hct 25.6 L MCV 94.1 MCH 30.9 MCHC 32.8 RDW Std Deviation 60.6 H RDW Coeff of Leilani 18.1 H Plt Count 180 MPV 11.8 Immature Gran % (Auto) 0.3 Neut % (Auto) 81.3 Lymph % (Auto) 9.8 [facility] % (Auto) 7.5 Eos % (Auto) 0.4 Baso % (Auto) 0.7 Neut # (Auto) 8.00 H Lymph # (Auto) 0.97 L [facility] # (Auto) 0.74 H Eos # (Auto) 0.04 Baso # (Auto) 0.07 Immature Gran # (Auto) 0.03 PT 22.8 H INR 2.3 H APTT 42 H PTT Ratio 1.5 Sodium 128 L Potassium 4.1 Chloride 98 Carbon Dioxide 22 Anion Gap 8 BUN 19 Creatinine 6.24 H* D Est Cr Clr Drug Dosing 6.2 eGFR 6.33 BUN/Creatinine Ratio 3.0 L Glucose 142 H POC Glucose POC Glucose (other) 158 H Calcium 8.8 Phosphorus 4.8 Magnesium 2.3 Total Bilirubin 3.0 H Direct Bilirubin 1.5 H AST 57 H ALT 21 Alkaline Phosphatase 106 H Total Protein 7.3 Albumin 3.1 L TSH Stl C. cayetanensis PCR Not Detected Stool Rotavirus A PCR Not Detected Stl Adenov F 40/41 PCR Not Detected Stool Astrovirus (PCR) Not Detected Stool Campylobacter PCR Not Detected Stl C. diff Tox B Gene Positive Cdiff Gene A Stl C.difficile Tox A&B Negative Cdiff Toxin Stl C. diff [id number] NEGATIVE Stool Cryptosporidium PCR Not Detected Stl E.coli Shiga Tox PCR Not Detected Stl Enterotoxigenic E PCR Not Detected Stool EPEC (PCR) Not Detected Stool EAEC (PCR) Not Detected Stl E. histolytica PCR Not Detected Stool Giardia Lamblia PCR Not Detected Stool Salmonella PCR Not Detected Stool Sapovirus (PCR) Not Detected Stl P. shigelloides PCR Not Detected Stl Shigella/EIEC PCR Not Detected St Y.enterocolitica PCR Not Detected Stool Vibrio (PCR) Not Detected Stl Vibrio cholerae PCR Not Detected Stl Norovirus GI/GII PCR Not Detected Random Vancomycin 13.9 09/28/25 07:27 WBC RBC Hgb Hct MCV MCH MCHC RDW Std Deviation RDW Coeff of Leilani Plt Count MPV Immature Gran % (Auto) Neut % (Auto) Lymph % (Auto) [facility] % (Auto) Eos % (Auto) Baso % (Auto) Neut # (Auto) Lymph # (Auto) [facility] # (Auto) Eos # (Auto) Baso # (Auto) Immature Gran # (Auto) PT INR APTT PTT Ratio Sodium Potassium Chloride Carbon Dioxide Anion Gap BUN Creatinine Est Cr Clr Drug Dosing eGFR BUN/Creatinine Ratio Glucose POC Glucose 138 H POC Glucose (other) Calcium Phosphorus Magnesium Total Bilirubin Direct Bilirubin AST ALT Alkaline Phosphatase Total Protein Albumin TSH Stl C. cayetanensis PCR Stool Rotavirus A PCR Stl Adenov F 40/41 PCR Stool Astrovirus (PCR) Stool Campylobacter PCR Stl C. diff Tox B Gene Stl C.difficile Tox A&B Stl C. diff [id number]-[id number] Stool Cryptosporidium PCR Stl E.coli Shiga Tox PCR Stl Enterotoxigenic E PCR Stool EPEC (PCR) Stool EAEC (PCR) Stl E. histolytica PCR Stool Giardia Lamblia PCR Stool Salmonella PCR Stool Sapovirus (PCR) Stl P. shigelloides PCR Stl Shigella/EIEC PCR St Y.enterocolitica PCR Stool Vibrio (PCR) Stl Vibrio cholerae PCR Stl Norovirus GI/GII PCR Random Vancomycin PG Care Time/CCT Total # of Minutes Spent Total Time Spent with Patient: Total time spent is greater than 50% in coordination of care (as documented) at patient's floor/unit and/or counseling patient: Coding Level of Care Code 75787 SUB INP/OBS CARE 3/50MIN Diagnoses ESRD on hemodialysis N18.6; Z99.2 Sepsis with multiple organ dysfunction (MOD) A41.9; R65.20 Longstanding persistent atrial fibrillation I48.11 Atrial fibrillation type: longstanding persistent Toe necrosis I96 Hydrothorax J94.8 Anemia D64.9 (3) Atrial fibrillation Atrial fibrillation type: longstanding persistent Qualified Code(s): I48.11 - Longstanding persistent atrial fibrillation
[2025-09-28] MEDS: VANCOMYCIN HCL 125 MG CAP PO SCH (12:25)
--- NOTE | 2025-09-28 16:50 | Orthopedic Consultation ---
Date of Consultation September 28, 2025 Assessment & Plan (1) Toe necrosis: (2) ESRD on hemodialysis: (3) Sepsis with multiple organ dysfunction (MOD): (4) Type 2 myocardial infarction due to shock: (5) Colon cancer: Plan Ligia is an 80-year-old female who is quite sick currently admitted in the ICU with concerns for severe septic shock. She has required vasopressor support since admission and has been on IV antibiotics since admission as well. Her vasopressor support has been decreased since admission, however her mentation has declined and her oxygen requirement has increased. I did discuss this patient's case with the ICU attending in great detail. The patient had a thoracocentesis just now and the fluid did not appear to be infected, however the fluid analysis is still pending. Per the ICU attending, it seems as if the only possible source of infection seems to be the patient's toe. On my evaluation, the patient's toe does not appear infected. Frankly, it only really appears necrotic. I could not express any purulence from the toe and it did not appear to bother the patient with palpation. Based on the patient's physical examination as well as her imaging studies, this toe does not appear to be infected. There is no signs of osteomyelitis on her MRI, no drainable abscess on her MRI or CT scan, no soft tissue gas. Although the patient's LRINEC score will be obscured due to her end-stage renal disease, at maximum, the highest value I could obtain was 6. At current, my best recommendation will be to involve the vascular surgery team as I believe that this represents a vascular issue. I did also call and discussed this with the holistic specialist, Jorge Jackson D.P.M. who will evaluate the patient in the morning. A formal consult will be placed to him now. Given the patient's severe vascular insufficiency, Should the patient worsen overnight and require urgent trip to the operating room for guillotine type amputation of the toe, please call me, otherwise we will continue with cautious observation and evaluation tomorrow morning. My shefali picion is that a partial ray resection would not heal and even a transmetatarsal amputation would not heal, prior to any definitive amputation for this, I do think vascular surgery input is necessary. History of Present Illness Reason for Consultation: right 5th toe necrosis Attending Physician: Cristino Martins, DO History of Present Illness Ms. Mahmood is an 80-year-old female with PMHx end-stage renal disease on hemodialysis M/W/F, hypothyroidism, heart failure with preserved ejection fraction and atrial fibrillation, type 2 diabetes mellitus with peripheral angiopathy who presented to the [facility] on 09/26 by referral of their primary care physician due to a significant right toe necrosis. The patient is currently with altered mental status so the history is gathered from chart review: Approximately 3 weeks prior to their current presentation they were being evaluated by their wound physician for bilateral lower extremity chronic ulcerations when there was noted to be a laceration along the medial aspect of the left fifth phalange, the physician at that time did not express any significant concern related to this and it remained without any direct management. The next evaluation of this injury took place on the day of presentation at her primary care physician's office when the toe was found to be frankly necrotic. At presentation, per chart review the patient denied any pain associated with itand could not recall an injury. The patient also noted chronic diarrhea has been ongoing for greater than 2 months; she was recently evaluated at an emergency department from an outside hospital system that did not yield any significant diagnostic results other than a positive Hemoccult stool per family report. The patient does have a history of colon cancer with previous colon resection in 2015 without any subsequent radiation or adjuvant chemotherapy. The patient also noted feeling acutely short of breath which began on the morning of presentation, it was also noted by her daughter on the day of presentation, the patient was notably dyspneic with conversation. Since admission the patient has been in the ICU on vasopressor support. nephrology is on board. she has been discovered to have pleural effusion, but the ICU team does not believe this is a significant contributing factor to her septic picture. She has just undergone thoracentesis and a fluid analysis is pe nding. Her vasopressor support has weaned since admission, but her O2 requirement has increased. Her mentation has worsened. I did tried to call the patient's family, but have not been able to reach them. Apparently the ICU has also tried to call the patient's family and been unable to reach them as well. Allergies Allergy/AdvReac Type Severity Reaction Status Date / Time No Known Allergies Allergy Verified 09/26/25 17:35 Home Medications Medication Instructions Recorded Confirmed Type allopurinol 100 mg tablet 100 mg PO QAM 09/26/25 09/26/25 History apixaban 5 mg tablet (Eliquis) 2.5 mg PO BID 09/26/25 09/26/25 History cholecalciferol (vitamin D3) 25 25 mcg PO DAILY 09/26/25 09/26/25 History mcg (1,000 unit) capsule (Vitamin D3) levothyroxine 75 mcg tablet 75 mcg PO DAILYBB 09/26/25 09/26/25 History metoprolol tartrate 25 mg tablet 25 mg PO BID 09/26/25 09/26/25 History simvastatin 40 mg tablet 40 mg PO QPM 09/26/25 09/26/25 History sitagliptin phosphate 25 mg tablet 25 mg PO QAM 09/26/25 09/26/25 History (Tasneem) Patient History Medical History (Updated 09/27/25 @ 13:15 by Kenney Munoz DO) Anemia Closed left hip fracture Colon cancer COVID-19 Surgical History History of repair of left hip joint History of partial colectomy Social History Smoking Status: Unknown if ever smoked Hx Alcohol Use: No Hx Substance Use: No Preferred Language: Polish Communication Ability: Effective Mud Mixer Helper Required: No Beliefs That Will Affect Care: None Current Living Situation: Spouse Feels Safe at Home: Yes Assistive Devices: Denture - Upper, Denture - Lower, Glasses and Walker Review of Systems Review of Systems: Unobtainable due to cognitive status Physical Exam Physical Exam: On physical examination of the patient's right foot, she has a necrotic appearing right fifth toe. There is no gross purulence noted. There is no active drainage. There is some dampness within the interdigital space between toes #5 and #4. To palpation, the patient does not appear tender at her fifth toe. There is no soft tissue emphysema appreciated to palpation. The patient's foot does appear cold. Pulses are not easily palpable. Sluggish capillary refill. Results & Data Vital Signs (Past 12 Hours) Vital Signs Temp Pulse Resp BP Pulse Ox O2 Del Method O2 Flow Rate 09/28/25 16:09 36.3 C L 09/28/25 14:30 90 21 09/28/25 14:05 93/56 L 09/28/25 13:30 87 16 96 09/28/25 13:30 90/60 L 09/28/25 13:00 92 H 17 93 09/28/25 13:00 95/51 L 09/28/25 12:30 103 H 23 96 09/28/25 12:30 120/61 09/28/25 12:00 102 H 29 H 96 Nasal Cannula 3 09/28/25 12:00 117/76 09/28/25 11:30 102/65 09/28/25 11:30 102/65 09/28/25 11:30 97 H 25 H 97 Nasal Cannula 3 09/28/25 11:00 36.4 C L 09/28/25 11:00 103/64 09/28/25 11:00 93 H 26 H 94 Nasal Cannula 3 09/28/25 10:30 86 25 H 98 09/28/25 10:30 122/63 09/28/25 09:00 85 23 99 Nasal Cannula 3 09/28/25 08:40 36.4 C L 09/28/25 08:34 112/44 L 09/28/25 08:33 86 21 100 09/28/25 08:30 Nasal Cannula 3 09/28/25 08:30 91 H 26 H 97 09/28/25 08:00 119/58 L 09/28/25 08:00 119/58 L 09/28/25 08:00 95 H 29 H 100 3 09/28/25 07:33 99 H 33 H 99 09/28/25 07:30 86 27 H 100 09/28/25 07:01 103/50 L 09/28/25 07:00 94 H 20 91 Room Air 3 09/28/25 06:45 89 22 97 09/28/25 06:00 96 H 17 100 09/28/25 05:47 85/48 L 09/28/25 05:47 85/48 L 09/28/25 05:47 85/48 L 09/28/25 05:47 85/48 L 09/28/25 05:47 85/48 L 09/28/25 05:46 43/24 L 09/28/25 05:45 91 H 28 H 98 09/28/25 05:33 85 17 100 09/28/25 05:33 89/47 L 09/28/25 05:33 89/47 L 09/28/25 05:33 89/47 L 09/28/25 05:33 89/47 L 09/28/25 05:33 89/47 L 09/28/25 05:16 118/44 L 09/28/25 05:16 118/44 L 09/28/25 05:16 118/44 L 09/28/25 05:16 118/44 L 09/28/25 05:16 118/44 L 09/28/25 05:15 99 H 17 100 09/28/25 05:00 97/47 L 09/28/25 05:00 97/47 L 09/28/25 05:00 97/47 L 09/28/25 05:00 97/47 L 09/28/25 05:00 97/47 L 09/28/25 05:00 90 23 100 Laboratory Results Most recent white blood cell count 9.85, maximum 12.82 Most recent hemoglobin 8.4, max 10.2 (anemic at baseline) Most recent ESR 61 Most recent CRP 12.24 mg/dL Creatinine 6.24 (end-stage renal disease, unsure of baseline) Most recent sodium 128 (maximum 131) Most recent glucose 142 (maximum 153) Diagnostic Findings CT scan and MRI of the right foot personally interpreted and reviewed. These do not demonstrate any acute osseous other maladies. There is no T2 hyperintensity within the fifth digit suggestive of osteomyelitis. No appreciable abscess.
--- NOTE | 2025-09-28 17:00 | Procedure Note ---
Procedure Note Date of Service September 28, 2025 Procedure: Diagnostic therapeutic ultrasound-guided catheter thoracentesis Egg Processor: Dr. Arely Martinez Indication: Right-sided pleural effusion Consent: Emergent consent was implied as patient's mental status was getting worse and she was getting more hypoxic Anesthesia: 1% lidocaine without epinephrine local. Procedure: Consent was verified and timeout performed. Appropriate imaging studies were reviewed prior to the procedure. Patient was placed in a seated position and limited thoracic ultrasound was performed of the right chest. See separate imaging. Appropriate site above the diaphragm for thoracentesis was selected. The skin was prepped and draped in normal sterile fashion. Lidocaine was used for local analgesia. Fluid was aspirated via the finder needle. A small skin jodi was made with the scalpel and the catheter over the needle apparatus was advanced over the rib into the pleural space. Using the syringe one-way valve system, a total of 1350 mL's of serosanguineous fluid was removed. The catheter was removed and observed to be intact. A sterile dressing was applied. Post procedure chest x-ray was ordered. Fluid was sent for labs, culture and cytology. Complications: None Blood loss: <1 CC Bedside Ultrasound: Lung: Right:-Moderate to large right-sided hypoechoic simple pleural effusion with compressive atelectasis of the right lower lobe Left:-Small left-sided pleural effusion with curtain sign Abdomen: There is ascitic fluid appreciated subdiaphragmatic bilaterally Please note the above document was generated using voice recognition software. It may contain grammatical, syntax or spelling errors.Any formal questions or concerns about the content, text or information contained within the body of this dictation should be directly addressed to the provider for clarification. [facility] [place] Procedure Codes (Charges) Pulmonary/Thoracic Procedure 1: Pulmonary and Thoracic: 56883 Thoracentesis w/o imaging Procedure 2: Pulmonary and Thoracic: 76485 US, Chest, real time with imaging documentation Coding CPT Codes Pulmonary/Thoracic - Pulmonary and Thoracic: 15449 Thoracentesis w/o imaging ([id number]) Pulmonary/Thoracic - Pulmonary and Thoracic: 57215 US, Chest, real time with imaging documentation ([id number]) Additional Codes Date of Service (PG.SURGERY)
[2025-09-28 17:38] LABS: Appearance Pleural Fluid Cloudy; Color Pleural Fluid Red; RBC Pleural Fluid Auto 33000 /uL; Source Pleural Fluid Right Lung; WBC Pleural Fluid Auto 278 /uL
[2025-09-28 17:55] LABS: Albumin Level 2.9 gm/dl (3.4-5.0); Bilirubin,Total 2.9 mg/dl (0.2-1.0); Total Protein 7.4 gm/dl (6.0-8.3)
--- NOTE | 2025-09-28 18:05 | XRay Report ---
EXAM: Portable AP chest radiograph TECHNIQUE: AP portable radiograph of the chest was obtained. INDICATION: Shortness of breath Comparison: Chest radiograph September 26, 2025 FINDINGS: LINES and TUBES: Right subclavian vascular stent. CARDIOVASCULAR: Cardiac silhouette is stably and markedly enlarged. Atherosclerosis of the thoracic aorta. LUNGS/PLEURA: Mild interval decrease in the size of the large right pleural fluid. Subjacent right pulmonary density may represent atelectasis though difficult exclude superimposed pneumonia. Mild interstitial pulmonary edema is similar to the previous. No discernible pneumothorax. OSSEOUS/OTHER: No displaced acute osseous process identified. IMPRESSION: Mild interval decrease in the size of the large right pleural fluid. Subjacent right pulmonary density may represent atelectasis though difficult to exclude superimposed pneumonia. Electronically signed by Michael Beaver 09-28-2025 6:04 PM
[2025-09-28] MEDS: 4.5GM EXT INFUSION IV SCH (18:16)
[2025-09-29] MEDS ORDERED: STAT IV Infusion **Titration per Protocol STA (04:08)
[2025-09-29] MEDS: dexMEDEtomidine 200 MCG/50 ML BAG IV SCH (04:18)
--- NOTE | 2025-09-29 05:02 | Communication Note ---
Date of Service: September 29, 2025 0300- Patient has been delirious through the PM, but now is progressively worse than earlier, as she is pulling at her cloth mittens, yelling, scratching staff and rolling around in bed. Patient is not able to be directed now as she was some wheat cooperative earlier in the evening. Combination at this time of likely ICU delirium and likely encephalopathy from her ESRD and underlying illness. She is planned to get dialysis this morning. At this time she does not have the physical reserve to continue like this as she is now tachycardic, hypoxic when she pulls her oxygen off, and tachypneic. - She has had a 1:1 Nursing support in her room through the evening - We have tried instituting Precedex with little effect - Will attempt Haldol at 2.5mg intervals IV to see if we can get her to a place calming down - If she fails the above therapies, she would likely be unable to get dialysis safely with her AV fistula - If continues would need to discuss options with family as intubation and sedation may be required for her to get her therapies that may reverse the above, however it may also worsen her delirium as well. Tyrell YOUNG ([facility]) [id number]- Was able to reach out to daughter Sujata as Briseyda's phone went to voicemail - We reviewed the above with the concerns of above and either continuing with delirium/encephalopathy that she does not have the pulmonary or physical reserve to continue this as well as if she continues as such she would not be able to get dialysis safely, which would not help her volume status/pulmonary mechanics as well as possibly mental state. We did discuss Ligia's initial wishes for no intubation, however with this possibly being reversible and if sedation is fur ther needed Sujata understands that there may be a point that the sedation medications may compromise her breathing as well and require ventilatory support. With this information if we would need to Sujata would want to proceed with intubation and sedation if it were required to receive dialysis and see if this would help her mother. If she would not improve or unable to liberate from the ventilator then would proceed with comfort measures. Would still want DNI in event of cardiac arrest although continue with CPR and electrical therapies as previous wishes. Tyrell YOUNG ([facility])
[2025-09-29 05:20] LABS: Hematocrit (blood only) 28.3 % (37.0-47.0); Hemoglobin 9.5 g/dL (12.0-16.0); Immature Granulocytes # (auto) 0.09 K/uL (0.01-0.20); Immature Granulocytes % (auto) 0.7 %; Mean Corpuscular Hemoglobin 32.0 pg (25.0-34.0); Mean Corpuscular Volume 95.3 fL (80.0-100.0); Platelet Count 188 K/uL (130-400); RDW Standard Deviation 61.4 fL (36.4-46.3); Red Blood Count 2.97 M/uL (4.20-5.40); White Blood Count 13.47 K/ul (4.8-10.8)
[2025-09-29] MEDS: HALOPERIDOL LACTATE 5 MG/ML 1 ML VIAL IV STA (05:21)
[2025-09-29 05:39] LABS: Alanine Aminotransferase 23.0 U/L (7-52); Albumin Level 3.1 gm/dl (3.4-5.0); Alkaline Phosphatase 106.0 U/L (34-104); Anion Gap 12.0 (3-11); Bilirubin,Total 2.8 mg/dl (0.2-1.0); Blood Urea Nitrogen 22.0 mg/dl (6-23); Calcium 8.7 mg/dl (8.6-10.3); Carbon Dioxide 19.0 mmol/L (21-32); Chloride 97.0 mmol/L (98-107); Creatinine Clr Calc Pharmacy 5.6 ml/min; Glucose 127.0 mg/dl (70-99(Fasting)); Magnesium 2.2 mg/dl (1.7-2.4); Potassium 4.0 mmol/L (3.5-5.1); Sodium 128.0 mmol/L (136-145); Total Protein 7.6 gm/dl (6.0-8.3)
[2025-09-29 05:46] LABS: INR 2.4 (0.9-1.1); Partial Thromboplastin Time 44 Seconds (21-31); Prothrombin Time 23.9 Seconds (9.0-12.0)
--- NOTE | 2025-09-29 07:25 | Hospitalist Progress Note ---
Date of Service September 29, 2025 Assessment & Plan (1) Sepsis with multiple organ dysfunction (MOD): (2) Severe sepsis: (3) Toe necrosis: (4) Type 2 myocardial infarction due to shock: (5) Coagulopathy: (6) Hyperbilirubinemia: (7) Hydrothorax: (8) ESRD on hemodialysis: (9) Atrial fibrillation: (10) Type II diabetes mellitus with peripheral angiopathy: Plan In summary this is a an 80-year-old female who presented from their PCPs office by referral found to have severe sepsis with multiple organ dysfunction admitted to the intensive care unit for continued care #Goals of Care discussion Family was present at bedside for a prolonged discussion regarding the patient's current clinical status and their prognosis. At this time, the patient's right fifth toe necrosis remains a primary concern. However, the utility of amputation is questionable given the prohibitive factors to adequate surgical site healing including the patient's severe peripheral arterial disease, ESRD on HD, persistent shock, type II diabetes mellitus and other chronic conditions. This, superimposed on the patient's tenuous status to even undergo hemodialysis without need for intubation and mechanical ventilation, is concerning for any significantly beneficial outcome to be achieved for the patient with regard to their goals of care with a priority of maintaining independence moving forward. After a prolonged discussion with family, they anticipate transitioning to comfort measures later in the day on 09/29, pending additional family discussions and conversation with other providers. #Severe Sepsis with MOD // Left 5th toe necrosis // Type II SC secondary to shock // Coagulopathy // Hyperbilirubinemia Presented with leukocytosis, tachypnea, presumed hypoxia given the patient's clinical appearance, tachycardia, persistent hypotension; suspected source to primarily be the right fifth toe as further discussed below; does have notable hydrothorax as discussed further below, underlying pneumonia could not be excluded at admission, though patient did not present with symptoms typical of a community-acquired pneumonia; troponin trend steady, not suggestive of a severe myocardial injury; fibrinogen measure was unremarkable, not consistent with DIC; ESR and CRP elevated, perhaps consequential of the patient's ESRD but acute infectious inflammatory processes involving their toe and biliary tree could not be excluded; at this time, presumed source of infection remains the patient's left fifth toe though, in agreement with Orthopedic Surgery consultation from 09/28, this does not have typical findings of an infectious process; alternatively, the patient's critical illness could be consequential of aseptic shock from corby toe necrosis without superimposed infection, similar to a distributive shock in pathophysiology - Remains on dual pressor therapy with norepinephrine and vasopressin - Continue with volume resuscitation guided by leather grainer consultation - Continue vancomycin with pharmacy consultation - Continue Zosyn 4.5 mg IV every 12 hours at Acupressurist preference - Blood cultures without growth at 48 hours - Follow daily CMP, CBC with differential, magnesium, phosphorus, coagulation panel - Abdominal US with findings concerning of choledocholithiasis, but unable to fully assess the gallbladder; MRCP with evidence of cholelithiasis without additional acute hepatobiliary pathology MRI foot without evidence of osteomyelitis Acupressurist, Orthopedic surgery, Podiatry, and Vascular surgery consulted #Right hydrothorax Plain film of the patient's chest did reveal right-sided hydrothorax in the ED; CT chest confirmed large right pleural effusion; thoracentesis performed 09/28 without complication Maintain O2 saturation greater than 90% if pulse oximetry is able to be est ablished; patient does not have any long-term medical conditions that would require judicious use of oxygen supplementation to avoid hypercapnic respiratory failure #Chronic diarrhea The patient is been struggling with chronic diarrhea for greater than 2 months, resulting in significant intravascular volume depletion; unclear cause at this time, not likely to be infectious given the duration of symptoms; could be related to the patient's allopurinol, but unable to determine the duration of medical treatment with this medication; C difficile gene positive but toxin neg ative - Qualitative fecal fat pending; would recommend further testing upon discharge including stool osmolarity and WBC for additional assessment if source is not found during this hospitalization #ESRD on HD Established on hemodialysis Mondays, Wednesdays, Fridays; not established with a head charger who practices at this facility Consult nephrology for assistance with scheduling hemodialysis #Type II diabetes mellitus with peripheral angiopathy HbA1c 4.1%, suggestive of shelter hypoglycemia; could be factitious with the patient's anemia, but this is not common; the patient does have elevated bilirubin, but no other findings at this time to suggest hemolysis which could also cause a factitiously low A1c measure; follow glycemic protocol in ICU; hold home medication regimen #Atrial fibrillation, permanent Chronic condition; holding Eliquis in the setting of coagulopathy and possible thoracentesis Admission and Anticipated Discharge Date Admission Date: September 26, 2025 Subjective Ms. Mahmood is an 80-year-old female whose active medical conditions include end- stage renal disease established on hemodialysis M/W/F, hypothyroidism, heart failure with preserved ejection fraction and atrial fibrillation, type 2 diabetes mellitus with peripheral angiopathy who presents to the [facility] on 09/26 by referral of their primary care physician due to a significant right toe injury. Overnight the patient became progressively agitated with behavioral outbursts and repeatedly attempted to remove medical equipment; this morning the patient is slightly sedated with continuous precedex drip. Review of Systems Review of Systems: Unable to be obtained due to sedated status Physical Exam Physical Exam: General: Elderly female, sedated Vital Signs: Reviewed; mean arterial pressure in the range of 60-70 mmHg sustained on two pressors; heart rate variable in the range of 90 to 110 bpm with irregular RR interval noted on telemetry; pulse oximetry not able to adequately assess oxygen saturation due to severity of peripheral arterial disease HEENT: dry mucous membranes Neck: Flattened jugular veins Pulmonary: Symmetric chest wall excursion without restriction; improved air movement throughout the right lung field, now with coarse breath sounds throughout the bilateral lung blackmon Cardiovascular: Tachycardic rate with irregular rhythm, murmur present associated with AV fistula without additional murmurs, rubs, or gallops; bilateral radial and posterior tibial pulse 1+; normal capillary refill in all nailbeds; right brachial AV fistula with palpable thrill and audible bruit; right femoral central venous catheter with some oozing around the access site but otherwise without concerning findings Gastrointestinal: Soft, protuberant; nontender; low-frequency normal pitch bowel sounds throughout Neurologic: sedated, no central neurologic posturing; withdraws extremities to noxious stimuli Skin: Left fifth phalange distal of the PIP is frankly necrotic, cool to touch, without tenderness; along the medial aspect there is a linear laceration with coagulated blood with sanguinous oozing; previously seen erythema involving the adjacent fourth toe has softened, without tenderness to palpation nor radiating heat; there is no appreciable lymphangitis of the affected extremity; jaundice to the superior chest wall Results & Data Results & Data Vital Signs (Past 12 Hours) Vital Signs Pulse Resp BP Pulse Ox O2 Del Method O2 Flow Rate 09/29/25 06:30 84/52 L 09/29/25 06:30 84/52 L 09/29/25 06:30 84/52 L 09/29/25 06:30 84/52 L 09/29/25 06:30 84/52 L 09/29/25 06:30 103 H 25 H 77 L 09/29/25 06:15 94 H 28 H 93 09/29/25 06:10 82/57 L 09/29/25 06:10 82/57 L 09/29/25 06:10 82/57 L 09/29/25 06:10 82/57 L 09/29/25 06:10 82/57 L 09/29/25 06:09 111 H 23 73 L 09/29/25 06:00 113 H 26 H 63 L 09/29/25 05:45 117 H 21 76 L 09/29/25 05:35 92/55 L 09/29/25 05:35 92/55 L 09/29/25 05:35 92/55 L 09/29/25 05:35 92/55 L 09/29/25 05:35 92/55 L 09/29/25 05:33 116 H 38 H 94 09/29/25 05:30 66/43 L 09/29/25 05:30 66/43 L 09/29/25 05:30 118 H 29 H 93 09/29/25 05:30 66/43 L 09/29/25 05:30 66/43 L 09/29/25 05:30 66/43 L 09/29/25 05:00 107 H 30 H 97 09/29/25 05:00 112/72 09/29/25 05:00 112/72 09/29/25 05:00 112/72 09/29/25 05:00 112/72 09/29/25 05:00 112/72 09/29/25 04:30 134/85 09/29/25 04:30 134/85 09/29/25 04:30 134/85 09/29/25 04:30 134/85 09/29/25 04:30 138 H 29 H 85 L 09/29/25 04:04 100/69 09/29/25 04:04 100/09/29/25 04:04 100/09/29/25 04:04 100/09/29/25 04:04 100/09/29/25 04:03 138 H 29 H 09/29/25 04:00 120 H 28 H 09/29/25 03:56 130/85 09/29/25 03:56 130/85 09/29/25 03:56 130/85 09/29/25 03:56 130/85 09/29/25 03:56 130/85 09/29/25 03:54 115 H 20 09/29/25 03:31 192/162 H 09/29/25 03:31 192/162 H 09/29/25 03:31 192/162 H 09/29/25 03:31 192/162 H 09/29/25 03:31 192/162 H 09/29/25 03:30 123 H 19 85 L 09/29/25 03:05 110/68 09/29/25 03:05 110/68 09/29/25 03:05 110/68 09/29/25 03:05 110/68 09/29/25 03:05 110/68 09/29/25 03:03 97 H 17 84 L 09/29/25 03:01 76/52 L 09/29/25 03:01 76/52 L 09/29/25 03:01 76/52 L 09/29/25 03:00 105 H 20 91 09/29/25 02:35 104/57 L 09/29/25 02:35 104/57 L 09/29/25 02:35 104/57 L 09/29/25 02:35 104/57 L 09/29/25 02:00 104 H 23 79 L 09/29/25 02:00 144/75 H 09/29/25 02:00 144/75 H 09/29/25 02:00 144/75 H 09/29/25 02:00 144/75 H 09/29/25 02:00 144/75 H 09/29/25 01:16 82/50 L 09/29/25 01:16 82/50 L 09/29/25 01:16 82/50 L 09/29/25 01:16 82/50 L 09/29/25 01:16 82/50 L 09/29/25 01:15 96 H 27 H 83 L 09/29/25 01:01 47/38 L 09/29/25 01:01 47/38 L 09/29/25 01:01 47/38 L 09/29/25 01:01 47/38 L 09/29/25 01:01 47/38 L 09/29/25 01:00 89 19 75 L 09/29/25 00:34 102/87 09/29/25 00:34 102/87 09/29/25 00:34 102/87 09/29/25 00:34 102/09/29/25 00:34 102/09/29/25 00:33 102 H 12 77 L 09/29/25 00:31 76/45 L 09/29/25 00:31 76/45 L 09/29/25 00:30 112 H 29 H 76 L 09/29/25 00:01 92/64 L 09/29/25 00:01 92/64 L 09/29/25 00:01 92/64 L 09/29/25 00:01 92/64 L 09/29/25 00:01 92/64 L 09/29/25 00:00 101 H 21 77 L 09/28/25 23:36 100/61 09/28/25 23:36 100/61 09/28/25 23:36 100/61 09/28/25 23:36 100/61 09/28/25 23:36 100/61 09/28/25 23:36 88 28 H 81 L 09/28/25 23:35 77/58 L 09/28/25 23:33 104 H 18 77 L 09/28/25 23:33 78/53 L 09/28/25 23:32 67/40 L 09/28/25 23:32 67/40 L 09/28/25 23:30 106 H 19 80 L 09/28/25 23:00 100 H 22 74 L 09/28/25 23:00 79/65 L 09/28/25 23:00 79/65 L 09/28/25 23:00 79/65 L 09/28/25 23:00 79/65 L 09/28/25 20:00 Nasal Cannula 5 Laboratory Results Leukocytosis recurred rising to 13.47, remains with neutrophilic predominance INR 2.4 (2.3) Bilirubin trend 2.8, 3.0, 3.4 with direct bilirubin 1.5 PG Care Time/CCT Total # of Minutes Spent Total Time Spent with Patient: Total time spent is greater than 50% in coordination of care (as documented) at patient's floor/unit and/or counseling patient: Coding Level of Care Code 30939 SUB INP/OBS CARE MIN Diagnoses Sepsis with multiple organ dysfunction (MOD) A41.9; R65.20 Severe sepsis A41.9; R65.20 Toe necrosis I96 Type 2 myocardial infarction due to shock R57.9; I21.A1 Coagulopathy D68.9 Hyperbilirubinemia E80.6 Hydrothorax J94.8 ESRD on hemodialysis N18.6; Z99.2 Longstanding persistent atrial fibrillation I48.11 Atrial fibrillation type: longstanding persistent Type II diabetes mellitus with peripheral angiopathy E11.51 (9) Atrial fibrillation Atrial fibrillation type: longstanding persistent Qualified Code(s): I48.11 - Longstanding persistent atrial fibrillation
[2025-09-29 08:41] LABS: Basophils, Fluid 2 %; Eosinophils, Fluid 1 %; Lymphocytes, Fluid 66 %; Mono,Macrophage,Mesothelial 20 %; Neutrophils, Fluid 11 %
--- NOTE | 2025-09-29 08:41 | Orthopedic Progress Note ---
Date of Service September 29, 2025 Assessment & Plan (1) Toe necrosis: (2) ESRD on hemodialysis: (3) Sepsis with multiple organ dysfunction (MOD): (4) Type 2 myocardial infarction due to shock: (5) Colon cancer: Plan Ligia is an 80-year-old female who is quite sick currently admitted in the ICU with concerns for severe septic shock. She has required vasopressor support since admission and has been on IV antibiotics since admission as well. Her vasopressor support has been decreased since admission, however her mentation has declined and her oxygen requirement has increased. I did discuss this patient's case with the ICU attending in great detail yesterday. The patient had a thoracocentesis yesterday - the fluid did not appear to be infected, however the fluid analysis is still pending. Per the ICU attending, it seems as if the only possible source of infection seems to be the patient's toe. On my evaluation, the patient's toe does not appear infected. Frankly, it only really appears necrotic. I could not express any purulence from the toe and it did not appear to bother the patient with palpation. Based on the patient's physical examination as well as her imaging studies, this toe does not appear to be infected. There is no signs of osteomyelitis on her MRI, no drainable abscess on her MRI or CT scan, no soft tissue gas. Although the patient's LRINEC score will be obscured due to her end-stage renal disease, at maximum, the highest value I could obtain was 6. Vascular surgery and podiatry have been consulted and they are consultations are still pending at this time. My suspicion remains that if the toe is the primary driving factor of her clinical presentation, this represents a vascular issue rather than an infectious issue. Will continue to follow Admission and Anticipated Discharge Date Admission Date: September 26, 2025 Subjective Overnight, the patient became combative and required restraints and sedation. She is sleeping soundly this morning but her mentation remains altered. Review of Systems Review of Systems: Unobtainable due to cognitive status Physical Exam Physical Exam: On physical examination of the patient's right foot, she has a necrotic appearing right fifth toe. There is no gross purulence noted. There is no active drainage. There is some dampness within the interdigital space between toes #5 and #4. To palpation, the patient does not appear tender at her fifth toe. There is no soft tissue emphysema appreciated to palpation. The patient's foot does appear cold. Pulses are not easily palpable. Sluggish capillary refill. Results & Data Vital Signs (Past 12 Hours) Vital Signs Pulse Resp BP Pulse Ox O2 Del Method O2 Flow Rate 09/29/25 08:03 Oxymask 09/29/25 08:00 Oxymask 15 09/29/25 06:30 84/52 L 09/29/25 06:30 84/52 L 09/29/25 06:30 84/52 L 09/29/25 06:30 84/52 L 09/29/25 06:30 84/52 L 09/29/25 06:30 103 H 25 H 77 L 09/29/25 06:15 94 H 28 H 93 09/29/25 06:10 82/57 L 09/29/25 06:10 82/57 L 09/29/25 06:10 82/57 L 09/29/25 06:10 82/57 L 09/29/25 06:10 82/57 L 09/29/25 06:09 111 H 23 73 L 09/29/25 06:00 113 H 26 H 63 L 09/29/25 05:45 117 H 21 76 L 09/29/25 05:35 92/55 L 09/29/25 05:35 92/55 L 09/29/25 05:35 92/55 L 09/29/25 05:35 92/55 L 09/29/25 05:35 92/55 L 09/29/25 05:33 116 H 38 H 94 09/29/25 05:30 66/43 L 09/29/25 05:30 66/43 L 09/29/25 05:30 118 H 29 H 93 09/29/25 05:30 66/43 L 09/29/25 05:30 66/43 L 09/29/25 05:30 66/43 L 09/29/25 05:00 107 H 30 H 97 09/29/25 05:00 112/72 09/29/25 05:00 112/72 09/29/25 05:00 112/72 09/29/25 05:00 112/72 09/29/25 05:00 112/72 09/29/25 04:30 134/85 09/29/25 04:30 134/85 09/29/25 04:30 134/85 09/29/25 04:30 134/85 09/29/25 04:30 138 H 29 H 85 L 09/29/25 04:04 100/69 09/29/25 04:04 100/09/29/25 04:04 /09/29/25 04:04 100/09/29/25 04:04 /09/29/25 04:03 138 H 29 H 09/29/25 04:00 120 H 28 H 09/29/25 03:56 130/85 09/29/25 03:56 130/85 09/29/25 03:56 130/85 09/29/25 03:56 130/85 09/29/25 03:56 130/85 09/29/25 03:54 115 H 20 09/29/25 03:31 192/162 H 09/29/25 03:31 192/162 H 09/29/25 03:31 192/162 H 09/29/25 03:31 192/162 H 09/29/25 03:31 192/162 H 09/29/25 03:30 123 H 19 85 L 09/29/25 03:05 110/68 09/29/25 03:05 110/68 09/29/25 03:05 110/68 09/29/25 03:05 110/68 09/29/25 03:05 110/68 09/29/25 03:03 97 H 17 84 L 09/29/25 03:01 76/52 L 09/29/25 03:01 76/52 L 09/29/25 03:01 76/52 L 09/29/25 03:00 105 H 20 91 09/29/25 02:35 104/57 L 09/29/25 02:35 104/57 L 09/29/25 02:35 104/57 L 09/29/25 02:35 104/57 L 09/29/25 02:00 104 H 23 79 L 09/29/25 02:00 144/75 H 09/29/25 02:00 144/75 H 09/29/25 02:00 144/75 H 09/29/25 02:00 144/75 H 09/29/25 02:00 144/75 H 09/29/25 01:16 82/50 L 09/29/25 01:16 82/50 L 09/29/25 01:16 82/50 L 09/29/25 01:16 82/50 L 09/29/25 01:16 82/50 L 09/29/25 01:15 96 H 27 H 83 L 09/29/25 01:01 47/38 L 09/29/25 01:01 47/38 L 09/29/25 01:01 47/38 L 09/29/25 01:01 47/38 L 09/29/25 01:01 47/38 L 09/29/25 01:00 89 19 75 L 09/29/25 00:34 102/87 09/29/25 00:34 102/87 09/29/25 00:34 102/87 09/29/25 00:34 102/87 09/29/25 00:34 102/87 09/29/25 00:33 102 H 12 77 L 09/29/25 00:31 76/45 L 09/29/25 00:31 76/45 L 09/29/25 00:30 112 H 29 H 76 L 09/29/25 00:01 92/64 L 09/29/25 00:01 92/64 L 09/29/25 00:01 92/64 L 09/29/25 00:01 92/64 L 09/29/25 00:01 92/64 L 09/29/25 00:00 101 H 21 77 L 09/28/25 23:36 100/61 09/28/25 23:36 100/61 09/28/25 23:36 100/61 09/28/25 23:36 100/61 09/28/25 23:36 100/61 09/28/25 23:36 88 28 H 81 L 09/28/25 23:35 77/58 L 09/28/25 23:33 104 H 18 77 L 09/28/25 23:33 78/53 L 09/28/25 23:32 67/40 L 09/28/25 23:32 67/40 L 09/28/25 23:30 106 H 19 80 L 09/28/25 23:00 100 H 22 74 L 09/28/25 23:00 79/65 L 09/28/25 23:00 79/65 L 09/28/25 23:00 79/65 L 09/28/25 23:00 79/65 L
--- NOTE | 2025-09-29 11:40 | Podiatry Consultation ---
Date of Consultation September 29, 2025 Assessment & Plan (1) Gangrene of toe of right foot: Plan Right fifth toe wound/gangrene: No findings of osteomyelitis on CT or MRI of the right foot. No soft tissue emphysema but on imaging. Clinical exam with no local signs of soft tissue infection, no lymphangitis or streaking. There is scant drainage to the fourth interspace with superficial breakdown of the skin. Gangrene of right fifth toe lateral aspect of the right fourth toe. No crepitus on palpation of surrounding viable soft tissues. Recommend dressing change to the interspace with a Betadine soaked 2x2 gauze daily. Minimize pressure to the lateral aspect of the right foot. Would not recommend partial foot amputation at this time without clinical or imaging findings to suggest notable local infection to the right foot. If patient's symptoms do not improve and no other source of infection is identified could consider guillotine amputation to gain source control in preparation for more proximal amputation. Vascular evaluation pending. Thank you for consulting podiatry to aid in the care of this patient. Will continue to follow her course pressure remains in house and follow-up as needed in the setting outpatient. History of Present Illness Reason for Consultation: Gangrene right fifth toe Requesting Physician: Mundo Randall MD Attending Physician: Cristino Martins DO History of Present Illness 80-year-old female admitted to the [facility] 09/26/2025 necrosis of the left fifth toe, severe sepsis with multiple organ dysfunction, [place] secondary to shock, cardiomyopathy, hyperbilirubinemia. Source of infection including necrotic right fifth toe versus pneumonia. CT of the right foot is obtained with no acute osseous pathology degenerative changes noted in the midfoot and ankle, diffuse vascular calcifications noted. MRI right foot without MRI findings to suggest osteomyelitis. Ultrasound duplex bilateral lower extremity arteries on 09/27/2025 showing monophasic arterial waveforms throughout bilateral lower extremity. Blood cultures collected, she is initiated on IV cefepime and vancomycin Allergies Allergy/AdvReac Type Severity Reaction Status Date / Time No Known Allergies Allergy Verified 09/26/25 17:35 Home Medications Medication Instructions Recorded Confirmed Type allopurinol 100 mg tablet 100 mg PO QAM 09/26/25 09/26/25 History apixaban 5 mg tablet (Eliquis) 2.5 mg PO BID 09/26/25 09/26/25 History cholecalciferol (vitamin D3) 25 25 mcg PO DAILY 09/26/25 09/26/25 History mcg (1,000 unit) capsule (Vitamin D3) levothyroxine 75 mcg tablet 75 mcg PO DAILYBB 09/26/25 09/26/25 History metoprolol tartrate 25 mg tablet 25 mg PO BID 09/26/25 09/26/25 History simvastatin 40 mg tablet 40 mg PO QPM 09/26/25 09/26/25 History sitagliptin phosphate 25 mg tablet 25 mg PO QAM 09/26/25 09/26/25 History (Tasneem) Patient History Medical History (Updated 09/29/25 @ 12:41 by Jorge Jackson DPM) Anemia Closed left hip fracture Colon cancer COVID-19 Surgical History History of repair of left hip joint History of partial colectomy Social History Smoking Status: Unknown if ever smoked Hx Alcohol Use: No Hx Substance Use: No Preferred Language: [place] Communication Ability: Effective 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 Physical Exam Physical Exam: Const: Appears well developed. Thin CV: Extremities: No edema. Capillary refill time is less than 4 seconds all digits of the bilateral foot the exception of the right fifth toe which is ischemic/gangrenous and the lateral aspect of the fourth toe which was also ischemic. Posterior tibial and dorsalis pedis pulses are nonpalpable bilateral. Lymph: No palpable or visible regional lymphadenopathy. Skin: Dry gangrene right fifth toe and the lateral aspect of the right fourth toe. Ulceration of the right fourth interspace. She is extremity exam/foot exam below. Focused lower extremity musculoskeletal exam: Ankles: Normal to inspection and palpation. No swelling bilaterally. Feet: Thin atrophic skin bilateral foot. Below the knee. Violaceous discoloration to the distal right foot with dry gangrene to the right fifth toe extending to the right fourth toe. Gangrenous tissue is beginning to mummified/dry now compared to photographs from admission. Pedal pulses are nonpalpable bilateral. Patient is holding some moisture to the fourth interspace with close approximation of the 4th and 5th toes. There is breakdown in skin most proximal extent of the fourth interspace which does not probe or track in any direction. No active drainage. Weak patient is not mounting any signs of local soft tissue infection. No increased warmth, erythema or edema to the periwound soft tissues. Results & Data Vital Signs (Past 12 Hours) Vital Signs Temp Pulse Resp BP Pulse Ox O2 Del Method O2 Flow Rate 09/29/25 10:00 99/51 L 09/29/25 10:00 99/51 L 09/29/25 10:00 88 18 89 L Oxymask 15 09/29/25 09:50 96/58 L 09/29/25 09:50 96/58 L 09/29/25 09:50 96/58 L 09/29/25 09:50 96/58 L 09/29/25 09:50 96/58 L 09/29/25 09:40 98/47 L 09/29/25 09:40 98/47 L 09/29/25 09:30 86 17 09/29/25 09:30 91/55 L 09/29/25 09:30 91/55 L 09/29/25 09:20 101/55 L 09/29/25 09:20 101/55 L 09/29/25 09:18 88 19 89 L Oxymask 15 09/29/25 09:10 104/49 L 09/29/25 09:10 104/49 L 09/29/25 09:09 92 H 24 09/29/25 09:00 86 17 90 Oxymask 15 09/29/25 09:00 109/66 09/29/25 09:00 109/66 09/29/25 09:00 109/66 09/29/25 09:00 109/66 09/29/25 09:00 109/66 09/29/25 08:51 85/49 L 09/29/25 08:51 85/49 L 09/29/25 08:51 88 16 09/29/25 08:50 73/46 L 09/29/25 08:48 88 13 09/29/25 08:48 78/54 L 09/29/25 08:44 79/42 L 09/29/25 08:42 81/52 L 09/29/25 08:39 92 H 18 09/29/25 08:39 77/45 L 09/29/25 08:30 93 H 17 09/29/25 08:03 Oxymask 09/29/25 08:00 35.8 C L 09/29/25 08:00 88/59 L 09/29/25 08:00 88/59 L 09/29/25 08:00 88/59 L 09/29/25 08:00 98 H 33 H 89 L Oxymask 09/29/25 08:00 Oxymask 15 09/29/25 07:30 94 H 28 H 89 L Oxymask 09/29/25 07:30 96/60 L 09/29/25 07:30 96/60 L 09/29/25 07:30 96/60 L 09/29/25 07:20 108/52 L 09/29/25 07:20 108/52 L 09/29/25 07:20 108/52 L 09/29/25 07:00 88 35 H 88 L Oxymask 15 09/29/25 06:30 84/52 L 09/29/25 06:30 84/52 L 09/29/25 06:30 84/52 L 09/29/25 06:30 84/52 L 09/29/25 06:30 84/52 L 09/29/25 06:30 103 H 25 H 77 L 09/29/25 06:15 94 H 28 H 93 09/29/25 06:10 82/57 L 09/29/25 06:10 82/57 L 09/29/25 06:10 82/57 L 09/29/25 06:10 82/57 L 09/29/25 06:10 82/57 L 09/29/25 06:09 111 H 23 73 L 09/29/25 06:00 113 H 26 H 63 L 09/29/25 05:45 117 H 21 76 L 09/29/25 05:35 92/55 L 09/29/25 05:35 92/55 L 09/29/25 05:35 92/55 L 09/29/25 05:35 92/55 L 09/29/25 05:35 92/55 L 09/29/25 05:33 116 H 38 H 94 09/29/25 05:30 66/43 L 09/29/25 05:30 66/43 L 09/29/25 05:30 118 H 29 H 93 09/29/25 05:30 66/43 L 09/29/25 05:30 66/43 L 09/29/25 05:30 66/43 L 09/29/25 05:00 107 H 30 H 97 09/29/25 05:00 112/72 09/29/25 05:00 112/72 09/29/25 05:00 112/72 09/29/25 05:00 112/72 09/29/25 05:00 112/72 09/29/25 04:30 134/85 09/29/25 04:30 134/85 09/29/25 04:30 134/85 09/29/25 04:30 134/85 09/29/25 04:30 138 H 29 H 85 L 09/29/25 04:04 100/69 09/29/25 04:04 100/69 09/29/25 04:04 100/69 09/29/25 04:04 100/69 09/29/25 04:04 100/69 09/29/25 04:03 138 H 29 H 09/29/25 04:00 120 H 28 H 09/29/25 03:56 130/85 09/29/25 03:56 130/85 09/29/25 03:56 130/85 09/29/25 03:56 130/85 09/29/25 03:56 130/85 09/29/25 03:54 115 H 20 09/29/25 03:31 192/162 H 09/29/25 03:31 192/162 H 09/29/25 03:31 192/162 H 09/29/25 03:31 192/162 H 09/29/25 03:31 192/162 H 09/29/25 03:30 123 H 19 85 L 09/29/25 03:05 11009/29/25 03:05 11009/29/25 03:05 11009/29/25 03:05 11009/29/25 03:05 11009/29/25 03:03 97 H 17 84 L 09/29/25 03:01 76/52 L 09/29/25 03:01 76/52 L 09/29/25 03:01 76/52 L 09/29/25 03:00 105 H 20 91 09/29/25 02:35 104/57 L 09/29/25 02:35 104/57 L 09/29/25 02:35 104/57 L 09/29/25 02:35 104/57 L 09/29/25 02:00 104 H 23 79 L 09/29/25 02:00 144/75 H 09/29/25 02:00 144/75 H 09/29/25 02:00 144/75 H 09/29/25 02:00 144/75 H 09/29/25 02:00 144/75 H 09/29/25 01:16 82/50 L 09/29/25 01:16 82/50 L 09/29/25 01:16 82/50 L 09/29/25 01:16 82/50 L 09/29/25 01:16 82/50 L 09/29/25 01:15 96 H 27 H 83 L 09/29/25 01:01 47/38 L 09/29/25 01:01 47/38 L 09/29/25 01:01 47/38 L 09/29/25 01:01 47/38 L 09/29/25 01:01 47/38 L 09/29/25 01:00 89 19 75 L 09/29/25 00:34 102/87 09/29/25 00:34 102/87 09/29/25 00:34 102/87 09/29/25 00:34 102/87 09/29/25 00:34 102/87 09/29/25 00:33 102 H 12 77 L 09/29/25 00:31 76/45 L 09/29/25 00:31 76/45 L 09/29/25 00:30 112 H 29 H 76 L 09/29/25 00:01 92/64 L 09/29/25 00:01 92/64 L 09/29/25 00:01 92/64 L 09/29/25 00:01 92/64 L 09/29/25 00:01 92/64 L 09/29/25 00:00 101 H 21 77 L 09/28/25 23:36 100/61 09/28/25 23:36 100/61 09/28/25 23:36 100/61 09/28/25 23:36 100/61 09/28/25 23:36 100/61 09/28/25 23:36 88 28 H 81 L 09/28/25 23:35 77/58 L 09/28/25 23:33 104 H 18 77 L 09/28/25 23:33 78/53 L 09/28/25 23:32 67/40 L 09/28/25 23:32 67/40 L 09/28/25 23:30 106 H 19 80 L PG Care Time/CCT Total # of Minutes Spent Total Time Spent with Patient: Total time spent is greater than 50% in coordination of care (as documented) at patient's floor/unit and/or counseling patient: Coding Level of Care Code 68339 INT INP/OBS CARE 2/55MIN Diagnoses Gangrene of toe of right foot I96
--- NOTE | 2025-09-29 12:03 | Critical Care Progress Note ---
Date of Service September 29, 2025 Assessment & Plan (1) Shock: (2) Type 2 myocardial infarction due to shock: (3) Sepsis with multiple organ dysfunction (MOD): (4) Pleural effusion: (5) Atrial fibrillation: (6) ESRD on hemodialysis: (7) Hypothyroidism: (8) Severe sepsis: (9) Toe necrosis: Plan Reason Critically Ill: 80 YOF with ESRD - presents hypotensive with concern of septic shock with multiorgan dysfunction what appears as new right sided pleural effusion, on Eliquis for Afib. Requiring vasopressor support. 24-hour events: The patient has becoming more agitated and encephalopathic. Precedex was initiated. Her oxygen requirements also increasing. She remains on 2 vasopressor agents. Recommendations: Neuro -agitated delirium. Suspect a multifactorial etiology but certainly the patient's metabolic disarray may be contributing. Continue Precedex for now. See comments below. No indication for advanced imaging at this point in time Cardiac - Shock with multiorgan dysfunction, Hx: Afib with chronic DOAC, heart murmur, HTN. Unfortunately additional efforts at crystalloid are hampered by the patient's third spacing, pleural effusion, and end-stage renal disease on dialysis. Her echocardiogram shows evidence of RV pressure volume overload with severe dilatation of the right ventricle. Right ventricular systolic function is reduced. Severe TR. Unfortunately, the patient appears both intravascularly dry with sepsis as well as fluid overloaded with severe pulmonary hypertension. This is not a treatable or salvageable situation. Respiratory: Increasing oxygen requirement with the pleural effusion which appears transudative. The fluid remains persistent. Could consider permanent drainage although unclear endpoints at this point in time. See comments below. Continue oxygen at this point in time. GI - Elevated LFT, Elevated bili, mild ascites, Diarrhea profound and ongoing. Unclear etiology. C. difficile gene positive but toxin negative indicating carrier state. On p.o. vancomycin prophylactically at this point in time. RENAL/LYTES -end-stage renal disease on dialysis. Discussed with Dr. Munoz at bedside. Patient appears too unstable to consider renal replacement therapy currently and unclear whether we could adequately dialyze someone on 2 vasopressor agents at our institution. Do not see much of a role for CVVH unfortunately given her multiple medical comorbidities at this point in time. - anuric no acute need ENDO -continue Synthroid. Glycemic protocol HEME - Chronic use of anticoagulation, HX: Colon cancer - as above- hold Eliquis- consider heparin in meantime for stroke prevention ID -unclear etiology. The patient certainly could have had an infection to begin with. Agree that the toe does not appear to be source. I think what ever infection was present is likely been treated. Currently on Zosyn and vancomycin. Met with 2 daughters and 2 sons at bedside with palliative care and bedside clinical care nurse. I have reviewed case with nephrology. Unfortunately the patient appears to be demonstrating multiorgan system failure/dysfunction. We discussed options moving forward. While intubation may correct some of the patient's hypoxemia and sedation would be in place to improve her agitation, this likely would not impact or change her overall outcome and prognosis. She now has 4 organ systems which have failed (neurologic, cardiovascular, pulmonary, renal). We had extensive discussions on quality of life. The patient previously was quite adamant about not wanting to to pursue intubation or mechanical ventilation. Would wholeheartedly support that and I think at this point time CPR or additional advanced therapies would be unlikely to improve her quantity or quality of life. We discussed options moving forward to continue full supportive care, continuing current levels of care without escalation, or transitioning to palliative care. The family seems to be leaning more towards a palliative approach but wants to have the opportunity to have other family members come and visit her. This seems reasonable for now. We did discuss that while we are waiting for family to arrive, we will not escalate her care including increasing her oxygen or pressor requirements. They are comfortable with this approach. Anticipate transition to palliative care within the next 12 hours and institution of comfort care measures. A total of 79 minutes in critical care time was spent in evaluation management and coordination of care for this patient. This is a life-threatening illness with multiple organ system dysfunction/failure and high probability of clinical decline and/or . Admission and Anticipated Discharge Date Admission Date: September 26, 2025 Subjective Patient seen and examined. EMR reviewed. Discussed with off going workcell operator as well as with overnight critical care ME[facility] and on multidisciplinary rounds. Patient is declining clinically. She is becoming more encephalopathic. Her hemodynamics remain unstable. Her oxygen requirements increasing. She has been unable to tolerate dialysis due to blood pressure issues as well as her neurological state. Multiple family members in attendance at bedside. Review of Systems Review of Systems: Unobtainable due to reduced consciousness Physical Exam Constitutional: well developed, + thin and + frail appearing; no acute distress Eyes: no scleral abnormality and no corneal abnormality ENMT: external ear and nose normal, oropharynx normal Mouth: + dry oral mucous membranes Neck: normal visual inspection and trachea midline Respiratory: normal respiratory effort Auscultation: lungs clear to auscultation bilaterally Cardiovascular: Rate/Rhythm: + irregularly irregular Heart Sounds: normal S1 and normal S2 Vessels: + JVD Extremities: + pedal edema and + AV fistula (+thrill and bruit); + abnormal capillary refill weak peripheral pulses DP and PT BL Musculoskeletal: Extremities: no cyanosis and no clubbing Skin: + turgor decreased; no jaundice R 5th toe with overlying necrotic wound with denuded skin and mild erythema Neurologic: Motor/Sensory: no tremor and no asterixis Psychiatric: Orientation: alert and oriented x 3 Results & Data Results & Data Vital Signs (Past 12 Hours) Vital Signs Temp Pulse Resp BP Pulse Ox O2 Del Method O2 Flow Rate 09/29/25 11:30 84 18 82 L 09/29/25 11:30 99/52 L 09/29/25 11:30 99/52 L 09/29/25 11:20 98/48 L 09/29/25 11:20 98/48 L 09/29/25 11:18 84 19 84 L 09/29/25 11:10 96/57 L 09/29/25 11:10 96/57 L 09/29/25 11:09 78 20 84 L 09/29/25 11:00 80 18 87 L Oxymask 09/29/25 11:00 98/53 L 09/29/25 11:00 98/53 L 09/29/25 10:50 98/57 L 09/29/25 10:48 79 18 86 L 09/29/25 10:40 102/52 L 09/29/25 10:40 102/52 L 09/29/25 10:39 78 19 85 L 09/29/25 10:30 105/60 09/29/25 10:30 85 22 84 L 09/29/25 10:20 110/50 L 09/29/25 10:10 101/51 L 09/29/25 10:00 99/51 L 09/29/25 10:00 99/51 L 09/29/25 10:00 88 18 89 L Oxymask 15 09/29/25 09:50 96/58 L 09/29/25 09:50 96/58 L 09/29/25 09:50 96/58 L 09/29/25 09:50 96/58 L 09/29/25 09:50 96/58 L 09/29/25 09:40 98/47 L 09/29/25 09:40 98/47 L 09/29/25 09:30 86 17 09/29/25 09:30 91/55 L 09/29/25 09:30 91/55 L 09/29/25 09:20 101/55 L 09/29/25 09:20 101/55 L 09/29/25 09:18 88 19 89 L Oxymask 15 09/29/25 09:10 104/49 L 09/29/25 09:10 104/49 L 09/29/25 09:09 92 H 24 09/29/25 09:00 86 17 90 Oxymask 15 09/29/25 09:00 109/66 09/29/25 09:00 109/66 09/29/25 09:00 109/66 09/29/25 09:00 109/66 09/29/25 09:00 109/66 09/29/25 08:51 85/49 L 09/29/25 08:51 85/49 L 09/29/25 08:51 88 16 09/29/25 08:50 73/46 L 09/29/25 08:48 88 13 09/29/25 08:48 78/54 L 09/29/25 08:44 79/42 L 09/29/25 08:42 81/52 L 09/29/25 08:39 92 H 18 09/29/25 08:39 77/45 L 09/29/25 08:30 93 H 17 09/29/25 08:03 Oxymask 09/29/25 08:00 35.8 C L 09/29/25 08:00 88/59 L 09/29/25 08:00 88/59 L 09/29/25 08:00 88/59 L 09/29/25 08:00 98 H 33 H 89 L Oxymask 09/29/25 08:00 Oxymask 15 09/29/25 07:30 94 H 28 H 89 L Oxymask 09/29/25 07:30 96/60 L 09/29/25 07:30 96/60 L 09/29/25 07:30 96/60 L 09/29/25 07:20 108/52 L 09/29/25 07:20 108/52 L 09/29/25 07:20 108/52 L 09/29/25 07:00 88 35 H 88 L Oxymask 15 09/29/25 06:30 84/52 L 09/29/25 06:30 84/52 L 09/29/25 06:30 84/52 L 09/29/25 06:30 84/52 L 09/29/25 06:30 84/52 L 09/29/25 06:30 103 H 25 H 77 L 09/29/25 06:15 94 H 28 H 93 09/29/25 06:10 82/57 L 09/29/25 06:10 82/57 L 09/29/25 06:10 82/57 L 09/29/25 06:10 82/57 L 09/29/25 06:10 82/57 L 09/29/25 06:09 111 H 23 73 L 09/29/25 06:00 113 H 26 H 63 L 09/29/25 05:45 117 H 21 76 L 09/29/25 05:35 92/55 L 09/29/25 05:35 92/55 L 09/29/25 05:35 92/55 L 09/29/25 05:35 92/55 L 09/29/25 05:35 92/55 L 09/29/25 05:33 116 H 38 H 94 09/29/25 05:30 66/43 L 09/29/25 05:30 66/43 L 09/29/25 05:30 118 H 29 H 93 09/29/25 05:30 66/43 L 09/29/25 05:30 66/43 L 09/29/25 05:30 66/43 L 09/29/25 05:00 107 H 30 H 97 09/29/25 05:00 112/72 09/29/25 05:00 112/72 09/29/25 05:00 112/72 09/29/25 05:00 112/72 09/29/25 05:00 112/72 09/29/25 04:30 134/85 09/29/25 04:30 134/85 09/29/25 04:30 134/85 09/29/25 04:30 134/85 09/29/25 04:30 138 H 29 H 85 L 09/29/25 04:04 100/69 09/29/25 04:04 100/09/29/25 04:04 100/09/29/25 04:04 100/09/29/25 04:04 100/09/29/25 04:03 138 H 29 H 09/29/25 04:00 120 H 28 H 09/29/25 03:56 130/85 09/29/25 03:56 130/85 09/29/25 03:56 130/85 09/29/25 03:56 130/85 09/29/25 03:56 130/85 09/29/25 03:54 115 H 20 09/29/25 03:31 192/162 H 09/29/25 03:31 192/162 H 09/29/25 03:31 192/162 H 09/29/25 03:31 192/162 H 09/29/25 03:31 192/162 H 09/29/25 03:30 123 H 19 85 L 09/29/25 03:05 110/68 09/29/25 03:05 110/68 09/29/25 03:05 110/68 09/29/25 03:05 110/68 09/29/25 03:05 110/68 09/29/25 03:03 97 H 17 84 L 09/29/25 03:01 76/52 L 09/29/25 03:01 76/52 L 09/29/25 03:01 76/52 L 09/29/25 03:00 105 H 20 91 09/29/25 02:35 104/57 L 09/29/25 02:35 104/57 L 09/29/25 02:35 104/57 L 09/29/25 02:35 104/57 L 09/29/25 02:00 104 H 23 79 L 09/29/25 02:00 144/75 H 09/29/25 02:00 144/75 H 09/29/25 02:00 144/75 H 09/29/25 02:00 144/75 H 09/29/25 02:00 144/75 H 09/29/25 01:16 82/50 L 09/29/25 01:16 82/50 L 09/29/25 01:16 82/50 L 09/29/25 01:16 82/50 L 09/29/25 01:16 82/50 L 09/29/25 01:15 96 H 27 H 83 L 09/29/25 01:01 47/38 L 09/29/25 01:01 47/38 L 09/29/25 01:01 47/38 L 09/29/25 01:01 47/38 L 09/29/25 01:01 47/38 L 09/29/25 01:00 89 19 75 L 09/29/25 00:34 102/87 09/29/25 00:34 102/87 09/29/25 00:34 102/87 09/29/25 00:34 102/87 09/29/25 00:34 102/87 09/29/25 00:33 102 H 12 77 L 09/29/25 00:31 76/45 L 09/29/25 00:31 76/45 L 09/29/25 00:30 112 H 29 H 76 L Critical Care Results & Data Vital Signs (Past 12 Hours) Vital Signs Temp Pulse Resp BP Pulse Ox O2 Del Method O2 Flow Rate 09/29/25 11:30 84 18 82 L 09/29/25 11:30 99/52 L 09/29/25 11:30 99/52 L 09/29/25 11:20 98/48 L 09/29/25 11:20 98/48 L 09/29/25 11:18 84 19 84 L 09/29/25 11:10 96/57 L 09/29/25 11:10 96/57 L 09/29/25 11:09 78 20 84 L 09/29/25 11:00 80 18 87 L Oxymask 15 09/29/25 11:00 98/53 L 09/29/25 11:00 98/53 L 09/29/25 10:50 98/57 L 09/29/25 10:48 79 18 86 L 09/29/25 10:40 102/52 L 09/29/25 10:40 102/52 L 09/29/25 10:39 78 19 85 L 09/29/25 10:30 105/60 09/29/25 10:30 85 22 84 L 09/29/25 10:20 110/50 L 09/29/25 10:10 101/51 L 09/29/25 10:00 99/51 L 09/29/25 10:00 99/51 L 09/29/25 10:00 88 18 89 L Oxymask 15 09/29/25 09:50 96/58 L 09/29/25 09:50 96/58 L 09/29/25 09:50 96/58 L 09/29/25 09:50 96/58 L 09/29/25 09:50 96/58 L 09/29/25 09:40 98/47 L 09/29/25 09:40 98/47 L 09/29/25 09:30 86 17 09/29/25 09:30 91/55 L 09/29/25 09:30 91/55 L 09/29/25 09:20 101/55 L 09/29/25 09:20 101/55 L 09/29/25 09:18 88 19 89 L Oxymask 15 09/29/25 09:10 104/49 L 09/29/25 09:10 104/49 L 09/29/25 09:09 92 H 24 09/29/25 09:00 86 17 90 Oxymask 15 09/29/25 09:00 109/66 09/29/25 09:00 109/66 09/29/25 09:00 109/66 09/29/25 09:00 109/66 09/29/25 09:00 109/66 09/29/25 08:51 85/49 L 09/29/25 08:51 85/49 L 09/29/25 08:51 88 16 09/29/25 08:50 73/46 L 09/29/25 08:48 88 13 09/29/25 08:48 78/54 L 09/29/25 08:44 79/42 L 09/29/25 08:42 81/52 L 09/29/25 08:39 92 H 18 09/29/25 08:39 77/45 L 09/29/25 08:30 93 H 17 09/29/25 08:03 Oxymask 09/29/25 08:00 35.8 C L 09/29/25 08:00 88/59 L 09/29/25 08:00 88/59 L 09/29/25 08:00 88/59 L 09/29/25 08:00 98 H 33 H 89 L Oxymask 09/29/25 08:00 Oxymask 15 09/29/25 07:30 94 H 28 H 89 L Oxymask 09/29/25 07:30 96/60 L 09/29/25 07:30 96/60 L 09/29/25 07:30 96/60 L 09/29/25 07:20 108/52 L 09/29/25 07:20 108/52 L 09/29/25 07:20 108/52 L 09/29/25 07:00 88 35 H 88 L Oxymask 15 09/29/25 06:30 84/52 L 09/29/25 06:30 84/52 L 09/29/25 06:30 84/52 L 09/29/25 06:30 84/52 L 09/29/25 06:30 84/52 L 09/29/25 06:30 103 H 25 H 77 L 09/29/25 06:15 94 H 28 H 93 09/29/25 06:10 82/57 L 09/29/25 06:10 82/57 L 09/29/25 06:10 82/57 L 09/29/25 06:10 82/57 L 09/29/25 06:10 82/57 L 09/29/25 06:09 111 H 23 73 L 09/29/25 06:00 113 H 26 H 63 L 09/29/25 05:45 117 H 21 76 L 09/29/25 05:35 92/55 L 09/29/25 05:35 92/55 L 09/29/25 05:35 92/55 L 09/29/25 05:35 92/55 L 09/29/25 05:35 92/55 L 09/29/25 05:33 116 H 38 H 94 09/29/25 05:30 66/43 L 09/29/25 05:30 66/43 L 09/29/25 05:30 118 H 29 H 93 09/29/25 05:30 66/43 L 09/29/25 05:30 66/43 L 09/29/25 05:30 66/43 L 09/29/25 05:00 107 H 30 H 97 09/29/25 05:00 112/72 09/29/25 05:00 112/72 09/29/25 05:00 112/72 09/29/25 05:00 112/72 09/29/25 05:00 112/72 09/29/25 04:30 134/85 09/29/25 04:30 134/85 09/29/25 04:30 134/85 09/29/25 04:30 134/85 09/29/25 04:30 138 H 29 H 85 L 09/29/25 04:04 100/69 09/29/25 04:04 100/69 09/29/25 04:04 100/69 09/29/25 04:04 100/69 09/29/25 04:04 100/69 09/29/25 04:03 138 H 29 H 09/29/25 04:00 120 H 28 H 09/29/25 03:56 130/85 09/29/25 03:56 130/85 09/29/25 03:56 130/85 09/29/25 03:56 130/85 09/29/25 03:56 130/85 09/29/25 03:54 115 H 20 09/29/25 03:31 192/162 H 09/29/25 03:31 192/162 H 09/29/25 03:31 192/162 H 09/29/25 03:31 192/162 H 09/29/25 03:31 192/162 H 09/29/25 03:30 123 H 19 85 L 09/29/25 03:05 110/09/29/25 03:05 110/68 09/29/25 03:05 110/68 09/29/25 03:05 110/68 09/29/25 03:05 110/68 09/29/25 03:03 97 H 17 84 L 09/29/25 03:01 76/52 L 09/29/25 03:01 76/52 L 09/29/25 03:01 76/52 L 09/29/25 03:00 105 H 20 91 09/29/25 02:35 104/57 L 09/29/25 02:35 104/57 L 09/29/25 02:35 104/57 L 09/29/25 02:35 104/57 L 09/29/25 02:00 104 H 23 79 L 09/29/25 02:00 144/75 H 09/29/25 02:00 144/75 H 09/29/25 02:00 144/75 H 09/29/25 02:00 144/75 H 09/29/25 02:00 144/75 H 09/29/25 01:16 82/50 L 09/29/25 01:16 82/50 L 09/29/25 01:16 82/50 L 09/29/25 01:16 82/50 L 09/29/25 01:16 82/50 L 09/29/25 01:15 96 H 27 H 83 L 09/29/25 01:01 47/38 L 09/29/25 01:01 47/38 L 09/29/25 01:01 47/38 L 09/29/25 01:01 47/38 L 09/29/25 01:01 47/38 L 09/29/25 01:00 89 19 75 L 09/29/25 00:34 102/87 09/29/25 00:34 102/87 09/29/25 00:34 102/87 09/29/25 00:34 102/87 09/29/25 00:34 102/87 09/29/25 00:33 102 H 12 77 L 09/29/25 00:31 76/45 L 09/29/25 00:31 76/45 L 09/29/25 00:30 112 H 29 H 76 L Lab & Micro Results (Past 24 Hours) RBC 2.97 M/uL (4.20-5.40) L 09/29/25 WBC 13.47 K/ul (4.8-10.8) H 09/29/25 Hgb 9.5 g/dL (12.0-16.0) L 09/29/25 Hct 28.3 % (37.0-47.0) L 09/29/25 MCV 95.3 fL (80.0-100.0) 09/29/25 MCH 32.0 pg (25.0-34.0) 09/29/25 MCHC 33.6 g/dL (32.0-36.0) 09/29/25 RDW Standard Deviation 61.4 fL (36.4-46.3) H 09/29/25 RDW Coefficient of Variation 18.3 % (11.5-14.5) H 09/29/25 Plt Count 188 K/uL (130-400) 09/29/25 MPV 11.7 fL (9.4-12.4) 09/29/25 Nucleated Red Blood Cells % (auto) 0.2 % 09/29 Nucleated RBC Absolute Count (auto) 0.03 K/uL (0.00-0.12) 1 11/29/24 Neutrophils (%) (Auto) 84.9 % 09/29/25 Lymphocytes (%) (Auto) 7.3 % 09/29/25 Monocytes # (Auto) 0.79 K/uL (0.11-0.59) H 09/29/25 Eosinophils # (Auto) 0.11 K/uL (0.00-0.50) 09/29/25 Immature Granulocyte % (Auto) 0.7 % 09/29/25 Neutrophils # (Auto) 11.44 K/uL (1.40-6.50) H 09/29/25 Lymphocytes # (Auto) 0.98 K/uL (1.20-3.40) L 09/29/25 Monocytes # (Auto) 0.79 K/uL (0.11-0.59) H 09/29/25 Eosinophils # (Auto) 0.11 K/uL (0.00-0.50) 09/29/25 Basophils # (Auto) 0.06 K/uL (0.00-0.20) 09/29/25 Immature Granulocyte # (Auto) 0.09 K/uL (0.01-0.20) 5 Na 128 mmol/L (136-145) L 09/29/25 K 4.0 mmol/L (3.5-5.1) 09/29/25 Cl 97 mmol/L (98-107) L 09/29/25 CO2 19 mmol/L (21-32) L 09/29/25 Anion Gap 12 (3-11) H 09/29/25 BUN 22 mg/dl (6-23) 09/29/25 Creatinine 6.97 mg/dl (0.6-1.2) H* 09/29/25 BUN/Creatinine Ratio 3.2 (10-20) L 09/29/25 Glu 127 mg/dl (70-99(Fasting)) H 09/29/25 Ca 8.7 mg/dl (8.6-10.3) 09/29/25 Phosphorus Level 5.0 mg/dl (2.5-4.9) H 09/29/25 Total Bilirubin 2.8 mg/dl (0.2-1.0) H 09/29/25 Direct Bilirubin 1.5 mg/dl (0-0.2) H 09/29/25 AST 57 U/L (13-39) H 09/29/25 ALT 23 U/L (7-52) 09/29/25 Alkaline Phosphatase 106 U/L (34-104) H 09/29/25 TP 7.6 gm/dl (6.0-8.3) 09/29/25 Albumin 3.1 gm/dl (3.4-5.0) L 09/29/25 Lactate Dehydrogenase 167 U/L (86-244) 09/28/25 Mg 2.2 mg/dl (1.7-2.4) 09/29/25 04:54 Calcium Level 8.7 mg/dl (8.6-10.3) 09/29/25 04:54 Prothromb Time International Ratio 2.4 (0.9-1.1) H 09/29/25 04 :54 Microbiology 09/28/25 17:00 Gram Stain - Final Pleural Fluid 09/26/25 16:11 Aerobic Blood Culture - Preliminary Blood No growth in Aerobic bottle after 48 hours. Anaerobic Blood Culture - Preliminary No growth in Anaerobic bottle after 48 hours. 09/26/25 16:11 Aerobic Blood Culture - Preliminary Blood No growth in Aerobic bottle after 48 hours. Anaerobic Blood Culture - Preliminary No growth in Anaerobic bottle after 48 hours. Diagnostic Findings (Past 24 Hours) Chest X-Ray 09/28/25 16:56 EXAM: Portable AP chest radiograph TECHNIQUE: AP portable radiograph of the chest was obtained. INDICATION: Shortness of breath Comparison: Chest radiograph September 26, 2025 FINDINGS: LINES and TUBES: Right subclavian vascular stent. CARDIOVASCULAR: Cardiac silhouette is stably and markedly enlarged. Atherosclerosis of the thoracic aorta. LUNGS/PLEURA: Mild interval decrease in the size of the large right pleural fluid. Subjacent right pulmonary density may represent atelectasis though difficult exclude superimposed pneumonia. Mild interstitial pulmonary edema is similar to the previous. No discernible pneumothorax. OSSEOUS/OTHER: No displaced acute osseous process identified. IMPRESSION: Mild interval decrease in the size of the large right pleural fluid. Subjacent right pulmonary density may represent atelectasis though difficult to exclude superimposed pneumonia. Electronically signed by Michael Beaver 09-28-2025 6:04 PM I & O Totals 24 Hours 09/28/25 09/29/25 09/30/25 06:59 06:59 06:59 Intake Total 1876.209 / 8834.515 2079.973 / 1985.973 234.117 / 234.117 Output Total 0 / 0 500 / 500 50 / 50 Balance 1876.209 / 6705.243 2705.973 / 1485.973 184.117 / 184.117 Cumulative 09/26/25 14:59 thru 09/29/25 10:51 Intake Total 5738.216 Output Total 550 Balance 5188.216 RT Ventilator Mngmt (Last Documented) Ventilator Ordered Settings Respiratory Rate 18 09/29/25 11:30 Ventilator - PT Measurements Respiratory Rate 18 Coding Level of Care Code 21430 CRITICAL CARE EA ADD 30M Diagnoses Shock R57.9 Type 2 myocardial infarction due to shock R57.9; I21.A1 Sepsis with multiple organ dysfunction (MOD) A41.9; R65.20 Pleural effusion J90 Longstanding persistent atrial fibrillation I48.11 Atrial fibrillation type: longstanding persistent ESRD on hemodialysis N18.6; Z99.2 Hypothyroidism E03.9 Severe sepsis A41.9; R65.20 Toe necrosis I96 (5) Atrial fibrillation Atrial fibrillation type: longstanding persistent Qualified Code(s): I48.11 - Longstanding persistent atrial fibrillation
--- NOTE | 2025-09-29 12:30 | Nephrology Progress Note ---
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 Maintained on IHD MWF at [facility]. Ligia remains hypotensive requiring vaso and levo gtts for BP support. Electrolytes normal. Unfortunately, she is encephalopathic with MOSF. HD is risky in the setting of hemodynamic instability. Ligia had expressed to me earlier in the admission that she would not want to be transferred to another facility for CRRT. However, the option of a CVVH was discussed with the family today assuming she would be stable for transfer. Ultimately, the family understands that she is critically ill and prognosis is very poor. We are holding off on HD pending additional discussions regarding overall plan of care versus possible transition to comfort measures. Medications are appropriately dosed for kidney dysfunction. (2) Sepsis with multiple organ dysfunction (MOD): Plan: Remains on vancomycin. Cefepime-->Zosyn. Cultures NGTD. Vancomycin dosing levels. (3) Atrial fibrillation: Plan: Rate controlled. Eliquis held. (4) Toe necrosis: Plan: Orthopedic consultation reviewed. (5) Hydrothorax: (6) Anemia: Plan: SUSHMA therapy will be coordinated with HD PRN. Admission and Anticipated Discharge Date Admission Date: September 26, 2025 Marcel Strong was seen and evaluated in the ICU with her family at the bedside. I met with her 2 daughters + 2 sons + [id number]. I discussed the patient's condition and plan of care with Dr. Dye. Ligia was started on Precedex overnight due to agitation and encephalopathy. She is not able to engage in meaningful conversation this AM. She has had increasing oxygen requirements and continued significant vasopressor requirement. Overall, prognosis is very poor. The family understands the risk of hemodialysis in her current condition. They are discussing goals of care moving forward. The family's questions were answered during a ~30 minute meeting this AM. Review of Systems Review of Systems: Unobtainable due to cognitive status Physical Exam Constitutional: + ill appearing, + altered mental status and + frail appearing; no acute distress Eyes: no scleral abnormality and no corneal abnormality ENMT: external ear and nose normal, oropharynx normal Mouth: + dry oral mucous membranes Neck: normal visual inspection and trachea midline Respiratory: + tachypneic Auscultation: lungs sam r to auscultation bilaterally and + diminished lung sounds Cardiovascular: Rate/Rhythm: + irregularly irregular Heart Sounds: normal S1 and normal S2 Vessels: + JVD Extremities: + pedal edema and + AV fistula (+thrill and bruit); + abnormal capillary refill Musculoskeletal: Extremities: + cyanosis; no clubbing Skin: + turgor decreased; no jaundice Neurologic: Motor/Sensory: no tremor and no asterixis Psychiatric: Orientation: alert and oriented x 3 Results & Data Vital Signs (Past 12 Hours) Vital Signs Temp Pulse Resp BP Pulse Ox O2 Del Method O2 Flow Rate 09/29/25 12:00 35.7 C L 09/29/25 12:00 98/54 L 09/29/25 12:00 98/54 L 09/29/25 12:00 98/54 L 09/29/25 12:00 80 15 89 L Oxymask 15 09/29/25 11:50 90/57 L 09/29/25 11:48 80 25 H 82 L 09/29/25 11:40 100/50 L 09/29/25 11:30 84 18 82 L 09/29/25 11:30 99/52 L 09/29/25 11:30 99/52 L 09/29/25 11:20 98/48 L 09/29/25 11:20 98/48 L 09/29/25 11:18 84 19 84 L 09/29/25 11:10 96/57 L 09/29/25 11:10 96/57 L 09/29/25 11:09 78 20 84 L 09/29/25 11:00 80 18 87 L Oxymask 15 09/29/25 11:00 98/53 L 09/29/25 11:00 98/53 L 09/29/25 10:50 98/57 L 09/29/25 10:48 79 18 86 L 09/29/25 10:40 102/52 L 09/29/25 10:40 102/52 L 09/29/25 10:39 78 19 85 L 09/29/25 10:30 105/60 09/29/25 10:30 85 22 84 L 09/29/25 10:20 110/50 L 09/29/25 10:10 101/51 L 09/29/25 10:00 99/51 L 09/29/25 10:00 99/51 L 09/29/25 10:00 88 18 89 L Oxymask 15 09/29/25 09:50 96/58 L 09/29/25 09:50 96/58 L 09/29/25 09:50 96/58 L 09/29/25 09:50 96/58 L 09/29/25 09:50 96/58 L 09/29/25 09:40 98/47 L 09/29/25 09:40 98/47 L 09/29/25 09:30 86 17 09/29/25 09:30 91/55 L 09/29/25 09:30 91/55 L 09/29/25 09:20 101/55 L 09/29/25 09:20 101/55 L 09/29/25 09:18 88 19 89 L Oxymask 15 09/29/25 09:10 104/49 L 09/29/25 09:10 104/49 L 09/29/25 09:09 92 H 24 09/29/25 09:00 86 17 90 Oxymask 15 09/29/25 09:00 109/66 09/29/25 09:00 109/66 09/29/25 09:00 109/66 09/29/25 09:00 109/66 09/29/25 09:00 109/66 09/29/25 08:51 85/49 L 09/29/25 08:51 85/49 L 09/29/25 08:51 88 16 09/29/25 08:50 73/46 L 09/29/25 08:48 88 13 09/29/25 08:48 78/54 L 09/29/25 08:44 79/42 L 09/29/25 08:42 81/52 L 09/29/25 08:39 92 H 18 09/29/25 08:39 77/45 L 09/29/25 08:30 93 H 17 09/29/25 08:03 Oxymask 09/29/25 08:00 35.8 C L 09/29/25 08:00 88/59 L 09/29/25 08:00 88/59 L 09/29/25 08:00 88/59 L 09/29/25 08:00 98 H 33 H 89 L Oxymask 09/29/25 08:00 Oxymask 15 09/29/25 07:30 94 H 28 H 89 L Oxymask 09/29/25 07:30 96/60 L 09/29/25 07:30 96/60 L 09/29/25 07:30 96/60 L 09/29/25 07:20 108/52 L 09/29/25 07:20 108/52 L 09/29/25 07:20 108/52 L 09/29/25 07:00 88 35 H 88 L Oxymask 15 09/29/25 06:30 84/52 L 09/29/25 06:30 84/52 L 09/29/25 06:30 84/52 L 09/29/25 06:30 84/52 L 09/29/25 06:30 84/52 L 09/29/25 06:30 103 H 25 H 77 L 09/29/25 06:15 94 H 28 H 93 09/29/25 06:10 82/57 L 09/29/25 06:10 82/57 L 09/29/25 06:10 82/57 L 09/29/25 06:10 82/57 L 09/29/25 06:10 82/57 L 09/29/25 06:09 111 H 23 73 L 09/29/25 06:00 113 H 26 H 63 L 09/29/25 05:45 117 H 21 76 L 09/29/25 05:35 92/55 L 09/29/25 05:35 92/55 L 09/29/25 05:35 92/55 L 09/29/25 05:35 92/55 L 09/29/25 05:35 92/55 L 09/29/25 05:33 116 H 38 H 94 09/29/25 05:30 66/43 L 09/29/25 05:30 66/43 L 09/29/25 05:30 118 H 29 H 93 09/29/25 05:30 66/43 L 09/29/25 05:30 66/43 L 09/29/25 05:30 66/43 L 09/29/25 05:00 107 H 30 H 97 09/29/25 05:00 112/72 09/29/25 05:00 112/72 09/29/25 05:00 112/72 09/29/25 05:00 112/72 09/29/25 05:00 112/72 09/29/25 04:30 134/85 09/29/25 04:30 134/85 09/29/25 04:30 134/85 09/29/25 04:30 134/85 09/29/25 04:30 138 H 29 H 85 L 09/29/25 04:04 100/69 09/29/25 04:04 100/69 09/29/25 04:04 100/09/29/25 04:04 100/09/29/25 04:04 100/09/29/25 04:03 138 H 29 H 09/29/25 04:00 120 H 28 H 09/29/25 03:56 130/85 09/29/25 03:56 130/85 09/29/25 03:56 130/85 09/29/25 03:56 130/85 09/29/25 03:56 130/85 09/29/25 03:54 115 H 20 09/29/25 03:31 192/162 H 09/29/25 03:31 192/162 H 09/29/25 03:31 192/162 H 09/29/25 03:31 192/162 H 09/29/25 03:31 192/162 H 09/29/25 03:30 123 H 19 85 L 09/29/25 03:05 110/68 09/29/25 03:05 110/68 09/29/25 03:05 110/68 09/29/25 03:05 110/68 09/29/25 03:05 110/68 09/29/25 03:03 97 H 17 84 L 09/29/25 03:01 76/52 L 09/29/25 03:01 76/52 L 09/29/25 03:01 76/52 L 09/29/25 03:00 105 H 20 91 09/29/25 02:35 104/57 L 09/29/25 02:35 104/57 L 09/29/25 02:35 104/57 L 09/29/25 02:35 104/57 L 09/29/25 02:00 104 H 23 79 L 09/29/25 02:00 144/75 H 09/29/25 02:00 144/75 H 09/29/25 02:00 144/75 H 09/29/25 02:00 144/75 H 09/29/25 02:00 144/75 H 09/29/25 01:16 82/50 L 09/29/25 01:16 82/50 L 09/29/25 01:16 82/50 L 09/29/25 01:16 82/50 L 09/29/25 01:16 82/50 L 09/29/25 01:15 96 H 27 H 83 L 09/29/25 01:01 47/38 L 09/29/25 01:01 47/38 L 09/29/25 01:01 47/38 L 09/29/25 01:01 47/38 L 09/29/25 01:01 47/38 L 09/29/25 01:00 89 19 75 L 09/29/25 00:34 102/87 09/29/25 00:34 102/87 09/29/25 00:34 102/87 09/29/25 00:34 102/87 09/29/25 00:34 102/87 09/29/25 00:33 102 H 12 77 L 09/29/25 00:31 76/45 L 09/29/25 00:31 76/45 L 09/29/25 00:30 112 H 29 H 76 L Laboratory Results Laboratory Results - last 24 hr 09/28/25 09/28/25 09/28/25 04:12 17:00 17:08 WBC RBC Hgb Hct MCV MCH MCHC RDW Std Deviation RDW Coeff of Leilani Plt Count MPV Immature Gran % (Auto) Neut % (Auto) Lymph % (Auto) [place] % (Auto) Eos % (Auto) Baso % (Auto) Neut # (Auto) Lymph # (Auto) [place] # (Auto) Eos # (Auto) Baso # (Auto) Immature Gran # (Auto) Absolute Nucleated RBC Nucleated RBC % (auto) ESR 61 H PT INR APTT PTT Ratio Sodium Potassium Chloride Carbon Dioxide Anion Gap BUN Creatinine Est Cr Clr Drug Dosing eGFR BUN/Creatinine Ratio Glucose POC Glucose 153 H Calcium Phosphorus Magnesium Total Bilirubin Direct Bilirubin AST ALT Alkaline Phosphatase Ammonia Lactate Dehydrogenase C-Reactive Protein 12.24 H Total Protein Albumin Fluid Neutrophils % 11 Fluid Lymphocytes % 66 Fluid Eosinophils % 1 Fluid Basophils % 2 Fluid Meso/Macro/[place] % 20 Fluid Comment Pleural Fluid Source Right Lung Pleural Color Red Pleural Appearance Cloudy Pleural pH 7.34 Pleural WBC (Auto) 278 Pleural RBC (Auto) 51192 Pleural Total Protein < 3.0 Pleural LDH 83 Pleural Glucose 133 Random Vancomycin 09/28/25 09/29/25 09/29/25 17:19 04:54 07:40 WBC 13.47 H RBC 2.97 L Hgb 9.5 L Hct 28.3 L MCV 95.3 MCH 32.0 MCHC 33.6 RDW Std Deviation 61.4 H RDW Coeff of Leilani 18.3 H Plt Count 188 MPV 11.7 Immature Gran % (Auto) 0.7 Neut % (Auto) 84.9 Lymph % (Auto) 7.3 [place] % (Auto) 5.9 Eos % (Auto) 0.8 Baso % (Auto) 0.4 Neut # (Auto) 11.44 H Lymph # (Auto) 0.98 L [place] # (Auto) 0.79 H Eos # (Auto) 0.11 Baso # (Auto) 0.06 Immature Gran # (Auto) 0.09 Absolute Nucleated RBC 0.03 Nucleated RBC % (auto) 0.2 ESR PT 23.9 H INR 2.4 H APTT 44 H PTT Ratio 1.6 Sodium 128 L Potassium 4.0 Chloride 97 L Carbon Dioxide 19 L Anion Gap 12 H BUN 22 Creatinine 6.97 H* D Est Cr Clr Drug Dosing 5.6 eGFR 5.54 BUN/Creatinine Ratio 3.2 L Glucose 127 H POC Glucose 123 H Calcium 8.7 Phosphorus 5.0 H Magnesium 2.2 Total Bilirubin 2.9 H 2.8 H Direct Bilirubin 1.5 H AST 57 H ALT 23 Alkaline Phosphatase 106 H Ammonia 42.0 Lactate Dehydrogenase 167 C-Reactive Protein Total Protein 7.4 7.6 Albumin 2.9 L 3.1 L Fluid Neutrophils % Fluid Lymphocytes % Fluid Eosinophils % Fluid Basophils % Fluid Meso/Macro/[place] % Fluid Comment Pleural Fluid Source Pleural Color Pleural Appearance Pleural pH Pleural WBC (Auto) Pleural RBC (Auto) Pleural Total Protein Pleural LDH Pleural Glucose Random Vancomycin 19.2 PG Care Time/CCT Total # of Minutes Spent Total Time Spent with Patient: Total time spent is greater than 50% in coordination of care (as documented) at patient's floor/unit and/or counseling patient: Coding Level of Care Code 71173 SUB INP/OBS CARE 3/50MIN Diagnoses ESRD on hemodialysis N18.6; Z99.2 Sepsis with multiple organ dysfunction (MOD) A41.9; R65.20 Longstanding persistent atrial fibrillation I48.11 Atrial fibrillation type: longstanding persistent Toe necrosis I96 Hydrothorax J94.8 Anemia D64.9 (3) Atrial fibrillation Atrial fibrillation type: longstanding persistent Qualified Code(s): I48.11 - Longstanding persistent atrial fibrillation
--- NOTE | 2025-09-29 12:54 | Palliative Care Consultation ---
Date of Consultation September 29, 2025 Assessment & Plan (1) Encephalopathy: (2) Palliative care by specialist: Met with patient's adult children at bedside, Introduced Palliative Medicine and explained our role in advanced care planning, symptom management and navigation through the progression of life limiting disease. Patient and/or family were receptive to palliative services for goals of care discussions. Reviewed we are different from hospice, a home health nurse visiting service. (3) Counseling regarding goals of care: Along with Dr Dye met with patient's two daughters, two sons, and DIL at bedside. patient was unresponsive and did not participate in discussion. We discussed at length the patient's acute and chronic medical conditions, general prognosis, treatment options, and goals of care. Dr Dye offered medical updates and clearly, in layman's terms helped family understand that Ligia is critically ill in multisystem organ failure and not responding to aggressive therapies. Discussed that despite aggressive therapies the patient continues on a downward trajectory with increasing vasopressor requirements making it unsafe to initiate her needed HD treatments. Discussed potential need for mechanical ventilation given her fluid retention without possibility of HD. Patient's family were all in agreement that she would not wish to be on a ventilator and that if she were aware of how ill she was she would not want to c ontinue this level of care. Discussed options of continuing current course of aggressive care, including potential need for mechanical ventilations and added vasopressors to allow for resumption of HD vs a transition to comfort directed care. Shared prognosis of hours to days if care is shifted to comfort focus. Family all in agreement that patient would want transition to comfort directed care, but wish to afford her sisters the opportunity to visit prior to changing to [employer]. [facility] request placed through pastoral care team. (4) Comfort measures only status: Family have chosen to transition to comfort directed care, plan to tansition after arrival of additional family from [place] this afternoon. (5) Need for comfort care: When family has arrived and is ready, transition to comfort directed care with following recs: Comfort plan of care parameters: 1. Patient/Family want hospice added to their care. 2. NO rehab/PT/OT 3. Strictly End of Life care only 4. NO escalation of care: do not increase oxygen, escalate therapies, etc. The focus is on comfort through end of life, assure this is accomplished with aggressive symptom management (i.e. relief of dyspnea, pain, etc.) 5. Discontinue all medications not directed towards comfort. 6. NO labs, imaging, surgery 7. Oral intake as desired for comfort and pleasure: NO dietary restriction, Allow permissive aspiration, do not withhold food or drink for concern of aspiration and allow PO for pleasure and comfort. 8. If difficulty urinating/commode/bedpan, ok to place Lopez catheter for comfort/hygiene/skin protection AND/OR Continue Lopez catheter for comfort/hygiene/skin protection 9. NO: calorie counts, artificial nutrition, feeding tubes or IV fluids EOL Symptom manamgement: Pain/dyspnea/tachypnea dilaudid 0.2mg IVP PRN [id number] Consider titratable dilaudid drip if pt requires >3 PRN doses in under two consecutive hours. Nausea/vomitting zofran 4mg IVP q4h PRN Agitation ativan 0.5mg IVP q4h PRN Hyperactive delirium haldol 5mg IVP q6h PRN Secretions - if repositioning not effective robinul 0.4mg IV q4h PRN atropine SL 3 drops Q1h PRN Nursing care: Detether pt from IV tubing, monitor cables, and check vitals once per shift. Please continue HFNC and titrate down as able for patient comfort. Use medications above PRN for dyspnea/tachypnea and do not increase oxygen once titrated down. Assess q1h for pain/dyspnea and treat accordingly. Plan as above. Palliative care will continue to follow for ongoing EOL pt care and family support. History of Present Illness Reason for Consultation: goals of care Requesting Physician: Dr Dye Attending Physician: Cristino Martins DO History of Present Illness Ms. Mahmood is an 80-year-old female Whose active medical conditions include end- stage renal disease established on hemodialysis M/W/F, hypothyroidism, heart failure with preserved ejection fraction and atrial fibrillation, type 2 diabetes mellitus with peripheral angiopathy who presents to the [facility] on 09/26 by referral of their primary care physician due to a significant right toe injury. She was admitted to ICU for medical management of sepsis and is now vasopressor dependent in [place]. Allergies Allergy/AdvReac Type Severity Reaction Status Date / Time No Known Allergies Allergy Verified 09/26/25 17:35 Home Medications Medication Instructions Recorded Confirmed Type allopurinol 100 mg tablet 100 mg PO QAM 09/26/25 09/26/25 History apixaban 5 mg tablet (Eliquis) 2.5 mg PO BID 09/26/25 09/26/25 History cholecalciferol (vitamin D3) 25 25 mcg PO DAILY 09/26/25 09/26/25 History mcg (1,000 unit) capsule (Vitamin D3) levothyroxine 75 mcg tablet 75 mcg PO DAILYBB 09/26/25 09/26/25 History metoprolol tartrate 25 mg tablet 25 mg PO BID 09/26/25 09/26/25 History simvastatin 40 mg tablet 40 mg PO QPM 09/26/25 09/26/25 History sitagliptin phosphate 25 mg tablet 25 mg PO QAM 09/26/25 09/26/25 History (Tasneem) Patient History Medical History (Updated 09/29/25 @ 13:02 by HECTOR Castro) Anemia Closed left hip fracture Colon cancer COVID-19 Surgical History History of repair of left hip joint History of partial colectomy Social History Smoking Status: Unknown if ever smoked Hx Alcohol Use: No Hx Substance Use: No Preferred Language: Guinean Communication Ability: Effective Kicking Machine Operator Required: No Beliefs That Will Affect Care: None Current Living Situation: Spouse Feels Safe at Home: Yes Assistive Devices: Walker and Wheelchair Review of Systems Review of Systems: Unobtainable due to cognitive status Physical Exam Constitutional: + cachectic, + altered mental status and + frail appearing Eyes: PERRL, conjunctivae normal, anicteric sclerae + scleral abnormality and + corneal abnormality ENMT: external ear and nose normal, oropharynx normal Mouth: + dry oral mucous membranes Neck: trachea midline, no thyromegaly Respiratory: normal respiratory effort Auscultation: lungs clear to auscultation bilaterally Cardiovascular: Rate/Rhythm: + irregularly irregular Heart Sounds: normal S1 and normal S2 Vessels: + JVD Extremities: + pedal edema and + AV fistula (+thrill and bruit); + abnormal capillary refill weak peripheral pulses Musculoskeletal: Extremities: no cyanosis and no clubbing Skin: + turgor decreased; no jaundice R 5th toe with overlying necrotic wound with denuded skin and mild erythema Neurologic: Motor/Sensory: no tremor and no asterixis Results & Data Vital Signs (Past 12 Hours) Vital Signs Temp Pulse Resp BP Pulse Ox O2 Del Method O2 Flow Rate 09/29/25 12:30 100/50 L 09/29/25 12:30 100/50 L 09/29/25 12:30 78 23 88 L Oxymask 15 09/29/25 12:20 98/53 L 09/29/25 12:20 98/53 L 09/29/25 12:18 78 18 81 L 09/29/25 12:10 97/57 L 09/29/25 12:09 83 18 09/29/25 12:00 98/54 L 09/29/25 12:00 98/54 L 09/29/25 12:00 35.7 C L 09/29/25 12:00 98/54 L 09/29/25 12:00 98/54 L 09/29/25 12:00 98/54 L 09/29/25 12:00 80 15 89 L Oxymask 15 09/29/25 11:50 90/57 L 09/29/25 11:48 80 25 H 82 L 09/29/25 11:40 100/50 L 09/29/25 11:30 84 18 82 L 09/29/25 11:30 99/52 L 09/29/25 11:30 99/52 L 09/29/25 11:20 98/48 L 09/29/25 11:20 98/48 L 09/29/25 11:18 84 19 84 L 09/29/25 11:10 96/57 L 09/29/25 11:10 96/57 L 09/29/25 11:09 78 20 84 L 09/29/25 11:00 80 18 87 L Oxymask 15 09/29/25 11:00 98/53 L 09/29/25 11:00 98/53 L 09/29/25 10:50 98/57 L 09/29/25 10:48 79 18 86 L 09/29/25 10:40 102/52 L 09/29/25 10:40 102/52 L 09/29/25 10:39 78 19 85 L 09/29/25 10:30 105/60 09/29/25 10:30 85 22 84 L 09/29/25 10:20 110/50 L 09/29/25 10:10 101/51 L 09/29/25 10:00 99/51 L 09/29/25 10:00 99/51 L 09/29/25 10:00 88 18 89 L Oxymask 15 09/29/25 09:50 96/58 L 09/29/25 09:50 96/58 L 09/29/25 09:50 96/58 L 09/29/25 09:50 96/58 L 09/29/25 09:50 96/58 L 09/29/25 09:40 98/47 L 09/29/25 09:40 98/47 L 09/29/25 09:30 86 17 09/29/25 09:30 91/55 L 09/29/25 09:30 91/55 L 09/29/25 09:20 101/55 L 09/29/25 09:20 101/55 L 09/29/25 09:18 88 19 89 L Oxymask 15 09/29/25 09:10 104/49 L 09/29/25 09:10 104/49 L 09/29/25 09:09 92 H 24 09/29/25 09:00 86 17 90 Oxymask 15 09/29/25 09:00 109/66 09/29/25 09:00 109/66 09/29/25 09:00 109/66 09/29/25 09:00 109/66 09/29/25 09:00 109/66 09/29/25 08:51 85/49 L 09/29/25 08:51 85/49 L 09/29/25 08:51 88 16 09/29/25 08:50 73/46 L 09/29/25 08:48 88 13 09/29/25 08:48 78/54 L 09/29/25 08:44 79/42 L 09/29/25 08:42 81/52 L 09/29/25 08:39 92 H 18 09/29/25 08:39 77/45 L 09/29/25 08:30 93 H 17 09/29/25 08:03 Oxymask 09/29/25 08:00 35.8 C L 09/29/25 08:00 88/59 L 09/29/25 08:00 88/59 L 09/29/25 08:00 88/59 L 09/29/25 08:00 98 H 33 H 89 L Oxymask 09/29/25 08:00 Oxymask 15 09/29/25 07:30 94 H 28 H 89 L Oxymask 09/29/25 07:30 96/60 L 09/29/25 07:30 96/60 L 09/29/25 07:30 96/60 L 09/29/25 07:20 108/52 L 09/29/25 07:20 108/52 L 09/29/25 07:20 108/52 L 09/29/25 07:00 88 35 H 88 L Oxymask 15 09/29/25 06:30 84/52 L 09/29/25 06:30 84/52 L 09/29/25 06:30 84/52 L 09/29/25 06:30 84/52 L 09/29/25 06:30 84/52 L 09/29/25 06:30 103 H 25 H 77 L 09/29/25 06:15 94 H 28 H 93 09/29/25 06:10 82/57 L 09/29/25 06:10 82/57 L 09/29/25 06:10 82/57 L 09/29/25 06:10 82/57 L 09/29/25 06:10 82/57 L 09/29/25 06:09 111 H 23 73 L 09/29/25 06:00 113 H 26 H 63 L 09/29/25 05:45 117 H 21 76 L 09/29/25 05:35 92/55 L 09/29/25 05:35 92/55 L 09/29/25 05:35 92/55 L 09/29/25 05:35 92/55 L 09/29/25 05:35 92/55 L 09/29/25 05:33 116 H 38 H 94 09/29/25 05:30 66/43 L 09/29/25 05:30 66/43 L 09/29/25 05:30 118 H 29 H 93 09/29/25 05:30 66/43 L 09/29/25 05:30 66/43 L 09/29/25 05:30 66/43 L 09/29/25 05:00 107 H 30 H 97 09/29/25 05:00 112/72 09/29/25 05:00 112/72 09/29/25 05:00 112/72 09/29/25 05:00 112/72 09/29/25 05:00 112/72 09/29/25 04:30 134/85 09/29/25 04:30 134/85 09/29/25 04:30 134/85 09/29/25 04:30 134/85 09/29/25 04:30 138 H 29 H 85 L 09/29/25 04:04 100/69 09/29/25 04:04 100/69 09/29/25 04:04 100/69 09/29/25 04:04 100/69 09/29/25 04:04 100/69 09/29/25 04:03 138 H 29 H 09/29/25 04:00 120 H 28 H 09/29/25 03:56 130/85 09/29/25 03:56 130/85 09/29/25 03:56 130/85 09/29/25 03:56 130/85 09/29/25 03:56 130/85 09/29/25 03:54 115 H 20 09/29/25 03:31 192/162 H 09/29/25 03:31 192/162 H 09/29/25 03:31 192/162 H 09/29/25 03:31 192/162 H 09/29/25 03:31 192/162 H 09/29/25 03:30 123 H 19 85 L 09/29/25 03:05 110/68 09/29/25 03:05 110/09/29/25 03:05 110/09/29/25 03:05 110/09/29/25 03:05 110/68 09/29/25 03:03 97 H 17 84 L 09/29/25 03:01 76/52 L 09/29/25 03:01 76/52 L 09/29/25 03:01 76/52 L 09/29/25 03:00 105 H 20 91 09/29/25 02:35 104/57 L 09/29/25 02:35 104/57 L 09/29/25 02:35 104/57 L 09/29/25 02:35 104/57 L 09/29/25 02:00 104 H 23 79 L 09/29/25 02:00 144/75 H 09/29/25 02:00 144/75 H 09/29/25 02:00 144/75 H 09/29/25 02:00 144/75 H 09/29/25 02:00 144/75 H 09/29/25 01:16 82/50 L 09/29/25 01:16 82/50 L 09/29/25 01:16 82/50 L 09/29/25 01:16 82/50 L 09/29/25 01:16 82/50 L 09/29/25 01:15 96 H 27 H 83 L 09/29/25 01:01 47/38 L 09/29/25 01:01 47/38 L 09/29/25 01:01 47/38 L 09/29/25 01:01 47/38 L 09/29/25 01:01 47/38 L 09/29/25 01:00 89 19 75 L Laboratory Results Abnormal lab results 09/28/25 09/28/25 09/28/25 Range/Units 04:12 17:08 17:19 WBC (4.8-10.8) K/ul RBC (4.20-5.40) M/uL Hgb (12.0-16.0) g/dL Hct (37.0-47.0) % RDW Std Deviation (36.4-46.3) fL RDW Coeff of Leilani (11.5-14.5) % Neut # (Auto) (1.40-6.50) K/uL Lymph # (Auto) (1.20-3.40) K/uL [place] # (Auto) (0.11-0.59) K/uL ESR 61 H (0-30) mm/hr PT (9.0-12.0) Seconds INR (0.9-1.1) APTT (21-31) Seconds Sodium (136-145) mmol/L Chloride (98-107) mmol/L Carbon Dioxide (21-32) mmol/L Anion Gap (3-11) Creatinine (0.6-1.2) mg/dl BUN/Creatinine Ratio (10-20) Glucose (70-99(Fasting)) mg/dl POC Glucose 153 H (70-99) mg/dl Phosphorus (2.5-4.9) mg/dl Total Bilirubin 2.9 H (0.2-1.0) mg/dl Direct Bilirubin (0-0.2) mg/dl AST (13-39) U/L Alkaline Phosphatase (34-104) U/L C-Reactive Protein 12.24 H (0-0.5) mg/dl Albumin 2.9 L (3.4-5.0) gm/dl 09/29/25 09/29/25 Range/Units 04:54 07:40 WBC 13.47 H (4.8-10.8) K/ul RBC 2.97 L (4.20-5.40) M/uL Hgb 9.5 L (12.0-16.0) g/dL Hct 28.3 L (37.0-47.0) % RDW Std Deviation 61.4 H (36.4-46.3) fL RDW Coeff of Leilani 18.3 H (11.5-14.5) % Neut # (Auto) 11.44 H (1.40-6.50) K/uL Lymph # (Auto) 0.98 L (1.20-3.40) K/uL [place] # (Auto) 0.79 H (0.11-0.59) K/uL ESR (0-30) mm/hr PT 23.9 H (9.0-12.0) Seconds INR 2.4 H (0.9-1.1) APTT 44 H (21-31) Seconds Sodium 128 L (136-145) mmol/L Chloride 97 L (98-107) mmol/L Carbon Dioxide 19 L (21-32) mmol/L Anion Gap 12 H (3-11) Creatinine 6.97 H* D (0.6-1.2) mg/dl BUN/Creatinine Ratio 3.2 L (10-20) Glucose 127 H (70-99(Fasting)) mg/dl POC Glucose 123 H (70-99) mg/dl Phosphorus 5.0 H (2.5-4.9) mg/dl Total Bilirubin 2.8 H (0.2-1.0) mg/dl Direct Bilirubin 1.5 H (0-0.2) mg/dl AST 57 H (13-39) U/L Alkaline Phosphatase 106 H (34-104) U/L C-Reactive Protein (0-0.5) mg/dl Albumin 3.1 L (3.4-5.0) gm/dl Diagnostic Findings Foot CT 09/26/25 16:03 CT of the right foot without contrast Technique: Noncontrast axial images of the right foot. Coronal and sagittal reformatted images made available for review No fractures or dislocations identified on this exam. Advanced degenerative changes of the midfoot and ankle. Diffuse vascular calcifications present. Diffuse soft tissue swelling about the foot. Impression: No acute osseous pathology Degenerative changes of the midfoot and ankle Diffuse vascular calcifications findings may represent small vessel disease in the diabetic patient. Clinical correlation with arterial Doppler ultrasound and pulse exam recommended. Electronically signed by Timbo Evans 09-26-2025 8:21 PM Abdomen Ultrasound 09/26/25 19:22 Exam(s): US ABDOMEN LIMITED EXAM: US Abdomen Limited, Right Upper Quadrant CLINICAL HISTORY: Reason for exam: Hyperbilirubinemia. OTHER: Other Notes: Hyperbilirubinemia. TECHNIQUE: Real-time ultrasound of the right upper quadrant with image documentation. COMPARISON: No relevant prior studies available. FINDINGS: Liver: The liver is mildly echogenic suggesting fatty infiltration. No focal liver mass lesion is seen. Portal vein is patent with normal hepatopetal flow. The liver measures 14 cm. There is a lobular liver surface. No intrahepatic bile duct dilation. Gallbladder: Gallbladder is not visible. Common bile duct: The common bile duct is mildly dilated measuring 10 mm. No choledocholithiasis is seen. Pancreas: The visualized portions of the pancreas is unremarkable. Right kidney: Obscured. Inferior vena cava: The IVC is unremarkable. Free fluid: Small amount of fluid surrounding the liver suggesting ascites. IMPRESSION: 1. Small amount of fluid surrounding the liver suggesting ascites. 2. The common bile duct is mildly dilated measuring 10 mm. No choledocholithiasis is seen. 3. Gallbladder is not visible. Shadowing in the expected location of the gallbladder could represent bowel versus stone laden gallbladder. Consider CT for further characterization. Electronically signed by: Nikko Farooq MD 09/26/25 22:[address] 09/26/25 19:22 CT of the chest without contrast Technique:Noncontrast axial images of the chest. Coronal and sagittal reformatted images made available for review Images made to prior plain film performed earlier on the same date Findings: Large right pleural effusion with compressive atelectasis of the right upper and lower lobes. The right middle lobe is completely collapsed. There is likely a accounts for the appearance of the chest x-ray. Left lung is clear. Cardiomegaly. Trace pericardial effusion. Aortic valvular calcifications. Coronary artery calcifications. Minimal intra-abdominal ascites incompletely evaluated this exam. Impression Large right pleural effusion with associated atelectasis of the right middle lower and upper lobes. Intra-abdominal ascites Electronically signed by Timob Evans 09-26-2025 8:33 PM Cholangiopancreatography MRI 09/27/25 07:06 EXAM: MR MRCP CLINICAL HISTORY: Dilated CBD; questionable choledocho TECHNIQUE: Multiplanar multisequence magnetic resonance imaging of the abdomen without intravenous contrast. COMPARISON: None. FINDINGS: Liver: Normal size and morphology. Homogeneous signal intensity on T2-weighted images. No focal hepatic lesions. Gallbladder: 5.7 mm signal dropout seen in the gallbladder representing cholelithiasis. Bile Ducts: Intrahepatic bile ducts are normal in caliber. The common bile duct is normal in caliber, measuring up to 5 mm with no evidence of strictures or filling defects. No evidence of choledocholithiasis. Pancreas: Normal size and contour. Homogeneous signal intensity on T2-weighted images. No masses or cystic lesions. Pancreatic Duct: The pancreatic duct is normal in caliber. No evidence of ductal dilatation or filling defects. Spleen: Normal size and appearance. Homogeneous signal intensity. Kidneys: The left kidney is small and atrophic with multiple renal cysts. The right kidney is not visualized; correlate clinically. No hydronephrosis identified in the visualized kidney. Surrounding Structures: Moderate ascites. Cardiomegaly with a minimal pericardial effusion. Dilated inferior vena cava and congested hepatic veins. Large right pleural effusion with underlying passive atelectasis/collapse of the adjacent right lung; Further chest evaluation recommended. Mild left pleural effusion. Diffuse subcutaneous fat stranding with fluid signal in the subcutaneous tissues. IMPRESSION: 1. Normal-caliber common bile duct and no intrahepatic biliary dilatation. 2. Large right pleural effusion with associated passive right lung collapse; dedicated chest imaging is recommended. 3. Cardiomegaly with minimal pericardial effusion. 4. Moderate ascites with dilated inferior vena cava and congested hepatic veins, suggestive of elevated right-sided pressures or volume overload. 5. Right kidney not visualized; correlate clinically. 6. Small, atrophic left kidney with multiple cysts. 7. Cholelithiasis. Ultrasound correlation is advised. 8. Mild left pleural effusion. 9. Diffuse subcutaneous edema. Electronically signed by Abhay Yancey 09-28-2025 12:53 AM Foot MRI 09/27/25 08:01 EXAM: MR foot RT w/o con CLINICAL HISTORY: r/o osteomyelitis TECHNIQUE: MRI of the right foot was performed without intravenous contrast administration. Sequences obtained include: Sagittal T1-weighted, Sagittal T2-weighted, Coronal T1-weighted, Coronal T2-weighted, Axial T1-weighted, and Axial T2-weighted. COMPARISON: CT performed in the same setting FINDINGS: Bone: Midfoot arthropathy is most prominent at the 2nd tarsometatarsal joint as well as the medial intertarsal joints with subchondral cystic change and marked joint space narrowing. The distal interphalangeal joints of the first and second toes show minimal plantar-sided joint effusions with minimal focal T2 hyperintensity in the distal becky without cortical erosions or destructive changes. Similar minimal signal alteration at the distal becky of the fourth and fifth distal phalanges may reflect artifact. The medial intercuneiform is displaying cortical irregularities with subchondral cystic changes; however, it is displaying maintained signal intensity with no features of osteomyelitis No marrow-replacing lesion is identified. No acute fracture. No evidence of osteolysis or aggressive periosteal reaction to suggest active osteomyelitis. Tendons: Normal MRI appearance of the scanned compartmental longitudinal tendons. Muscles: The intrinsic plantar musculature of the foot is negative for myositis, intramuscular tear, or atrophy. Soft Tissue: Diffuse soft tissue edema involving the intrinsic and extrinsic muscles and subcutaneous fat planes No focal fluid collection. IMPRESSION: 1. Midfoot arthropathy is most prominent at the 2nd tarsometatarsal joint as well as the medial intertarsal joints with subchondral cystic change and marked joint space narrowing. 2. The medial intercuneiform is displaying cortical irregularities with subchondral cystic changes; however, it is displaying maintained signal intensity with no features of osteomyelitis 3. Minimal effusions at the interphalangeal joints of the first and second toes. 4. Diffuse soft tissue edema involving the intrinsic and extrinsic muscles and subcutaneous fat planes 5. These findings match the prior CT study. Electronically signed by Abhay Yancey 09-28-2025 01:16 AM Duplex Scan Lower Extremity Artery 09/27/25 10:09 Exam(s): US ARTERIAL BILATERAL LOWER EXTREMITIES EXAM: US Duplex Bilateral Lower Extremities Arteries CLINICAL HISTORY: Reason for exam: PVD. TECHNIQUE: Real-time duplex ultrasound scan of the bilateral lower extremity arteries integrating B-mode two-dimensional vascular structure, Doppler spectral analysis and color flow Doppler imaging. COMPARISON: No relevant prior studies available. FINDINGS: Right common femoral artery: The right common femoral artery is obscured due to lines and dressings. Normal waveform. Right deep femoral artery: Right deep femoral artery, biphasic waveform, 41 cm/sec. Right superficial femoral artery: Right superficial femoral artery, monophasic waveform, 112, 100, and 57 cm/sec. Right popliteal artery: Popliteal artery, biphasic waveform, 70 and 48 cm/sec. Right calf/foot arteries: Right posterior tibial artery, biphasic waveform, 63 cm/sec proximal, 69 cm/sec mid, and 19 cm/sec with monophasic flow distally. Right anterior tibial artery, monophasic waveform, 13, 17, and 9 cm/sec. Right dorsalis pedis artery, not visible. Right peroneal artery, monophasic waveform, 11 and 12 cm/sec. Left common femoral artery: Left common femoral artery, monophasic waveform, 136 cm/sec. Left deep femoral artery: Left deep femoral artery, monophasic waveform, 99 cm/sec. Left superficial femoral artery: Left superficial femoral artery, monophasic waveform, 46, 81, 219, and 63 cm/sec. Left popliteal artery: Left popliteal artery, monophasic waveform, 47 and 23 cm/sec. Left calf/foot arteries: Left anterior tibial artery, monophasic waveform, 29 and 21 cm/sec. Left peroneal artery, monophasic waveform, 21 and 15 cm/sec. Left posterior tibial artery, monophasic waveform, 10- 20 cm/sec. Left dorsalis pedis artery, monophasic waveform, 10 cm/sec. Soft tissues: Unremarkable. 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 Elevated velocity in the proximal to mid left superficial femoral artery of 218 cm/sec consistent with at least 50-74% stenosis. Monophasic flow with slow velocities in the calf vessels as described above bilaterally. Consider arterial insufficiency. Electronically signed by: Nikko Farooq MD 09/27/25 23:20 PM Chest X-Ray 09/28/25 16:56 EXAM: Portable AP chest radiograph TECHNIQUE: AP portable radiograph of the chest was obtained. INDICATION: Shortness of breath Comparison: Chest radiograph September 26, 2025 FINDINGS: LINES and TUBES: Right subclavian vascular stent. CARDIOVASCULAR: Cardiac silhouette is stably and markedly enlarged. Atherosclerosis of the thoracic aorta. LUNGS/PLEURA: Mild interval decrease in the size of the large right pleural fluid. Subjacent right pulmonary density may represent atelectasis though difficult exclude superimposed pneumonia. Mild interstitial pulmonary edema is similar to the previous. No discernible pneumothorax. OSSEOUS/OTHER: No displaced acute osseous process identified. IMPRESSION: Mild interval decrease in the size of the large right pleural fluid. Subjacent right pulmonary density may represent atelectasis though difficult to exclude superimposed pneumonia. Electronically signed by Michael Beaver 09-28-2025 6:04 PM Medications Administered Current Inpatient Medications Norepinephrine Bitartrate (Levophed/D5w) 4 mg in 250 mls @ 18.008 mls/hr IV .[id number] MARIANELA; Protocol Stop: 10/26/25 18:44 Last Titration: 09/29/25 08:50 Dose: 0.07 mcg/kg/min, 18 mls/hr Vasopressin 20 units/ Sodium (Chloride) 101 mls @ 12.12 mls/hr IV .Q8H20M MARIANELA Stop: 10/27/25 00:14 Last Admin: 09/29/25 07:05 Dose: 0.04 unit/min, 12.1 mls/hr Piperacillin Sod/Tazobactam Sod (Zosyn) 4.5 gm in 100 mls @ 25 mls/hr IV Q12H MARIANELA; Protocol Stop: 09/30/25 17:59 Last Infusion: 09/29/25 08:55 Dose: Infused Dexmedetomidine/Sodium Chloride (Precedex) 200 mcg in 50 mls @ 20.91 mls/hr IV .Q2H24M MARIANELA; Protocol Stop: 10/03/25 04:14 Last Admin: 09/29/25 11:10 Dose: 1.2 mcg/kg/hr, 20.9 mls/hr Levothyroxine Sodium (Levothyroxine Sodium 75 Mcg Tablet) 75 mcg PO DAILYBB [facility] Stop: 10/27/25 06:29 Last Admin: 09/29/25 05:21 Dose: Not Given Miscellaneous Information (Vancomycin Consult Active) 1 each N/A UD PRN PRN Reason: Consult Stop: 10/26/25 20:27 Simvastatin (Simvastatin 40 Mg Tab) 40 mg PO QPM MARIANELA Stop: 10/26/25 20:59 Last Admin: 09/28/25 20:29 Dose: Not Given Vancomycin HCl (Vancomycin Hcl 125 Mg Cap) 125 mg PO DAILY MARIANELA Stop: 10/08/25 11:29 Last Admin: 09/29/25 08:39 Dose: Not Given PG Care Time/CCT Total # of Minutes Spent Total Time Spent with Patient: Total time spent is greater than 50% in coordination of care (as documented) at patient's floor/unit and/or counseling patient: Advanced Care Planning 66550 Advanced Care Planning 30 [place] [address] IN/OBS CONSULT LVL 4,60M Patient Type New History Expanded Problem Focused Exam Expanded Problem Focused Medical Decision Making Moderate Complexity Diagnoses Encephalopathy G93.40 Palliative care by specialist Z51.5 Counseling regarding goals of care Z71.89 Comfort measures only status Z51.5 Need for comfort care Additional Codes Advanced Care Planning - 39364 Advanced Care Planning 30 Min: 63590 Advanced Care Planning 30 Min ([id number])
--- NOTE | 2025-09-29 13:47 | Pharmacy Report ---
Pharmacy PK ABX Note - Date of Service September 29, 2025 - Assessment and Plan Assessment 09/29: * Level 19.2 mcg/mL. Current plan to transition to comfort measures following arrival of family members. As no plans to currently undergo dialysis, current level is acceptable without re-dose. If plans should change, will obtain additional random level in AM- currently not ordered. 09/28: * Day #3 vancomycin. Cefepime changed to Zosyn today for anaerobic coverage. Continues on 2 vasopressors. Blood cultures NGTD. Foot MRI with no evidence of osteo. No plan for HD today. 09/27: * 80 year old F receiving vancomycin and cefepime empirically in setting of septic shock. Blood cultures pending. ESRD on iHD MWF. Plan Vancomycin * Random level this AM, 19.2 mcg/ml. Goal pre-HD level: 15-20mcg/mL. Dose by levels in setting of HD. * Current level is within range without re-dose, No plan for HD at this time- anticipate transition to [employer]. * If plans should change, will obtain additional random level in AM- currently not ordered. Pharmacy will continue to follow and will adjust dose/frequency as necessary. Thank you.
--- NOTE | 2025-09-29 14:12 | Vascular Surgery Consultation ---
Date of Consultation September 29, 2025 Assessment & Plan (1) Gangrene due to peripheral vascular disease: 80 yo female with DM type II, ESRD, and fairly acute onset dry gangrene to right 5th toe, with no signs of infection on imaging, likely due to severe PAD. Imaging reviewed and on physical exam, she has no palpable femoral pulses or DP/PT pulses. Given that she is on comfort care at this time, would not recommend investigating vascular disease further or proceeding with toe amputation. Family was educated that the toe should continue to remain dry and demarcate, and eventually may autoamputate, which is the normal course of action. They express their understanding and are in agreement (2) Gangrene of toe of right foot: Secondary to severe PAD, as patient is comfort care at this time, would continue to focus on pain control, and would not investigate her PAD or perform toe amputation at this time, and instead allow for possible autoamputation. History of Present Illness Reason for Consultation: right 5th toe necrosis Requesting Physician: Dr. Cristino Martins Attending Physician: Cristino Martins, History of Present Illness Ms Mahmood is an 80 year old female with PMx significant for ESRD- on HD MWF, hypothyroidism, HFpEF, atrial fibrillation, type 2 DM, colon cancer s/p resection in 2014, who presented to [facility] on Wednesday 09/26 from PCP due to right 5th toe injury/necrosis, for which we are being consulted. History was obtained from patient's family and the medical records, due to her significant decline since admission. The patient has been following with the wound care center over the past 3 weeks, due to bilateral lower extremity chronic ulcerations, which included a laceration along the medial aspect of the left fifth phalange. At the time the laceration was noted, it did not look concerning, and no specific intervention was needed. On the day of presentation, however, her toe was noted to be necrotic. Her family is unsure of how long it had been like this. In the ED she was noted to be dyspneic, with leukocytosis and tachypnea, tachycardia and persistent hypotension. She was admitted to the ICU for severe sepsis with multiorgan dysfunction and started on antibiotics, as well as vasopressors for her persistent hypotension. CT of the foot to assess for infection did show diffuse soft tissue edema, but no osseous pathology, and did show diffuse vascular calcifications in the vessels. Follow up MRI again showed diffuse soft tissue edema, no concerns for osteomyelitis. She underwent vascular studies with lower arterial duplex, which did demonstrate monophasic arterial waveforms throughout both lower extremities, suggestive of stenoses at level of the groin, along with low velocities in the calf vessels. Since admission she has continued to decline, becoming more agitated and confused, requiring precedex infusion, and has been requiring increasing oxygen requirements and remains on 2 vasopressors to maintain blood pressure. In talking with family, she was not having pain in her feet or toes. She has never had any sort of procedure to the blood vessels in her legs. Family at this point is leaning towards palliative care for her, as she is deteriorating rapidly. Allergies Allergy/AdvReac Type Severity Reaction Status Date / Time No Known Allergies Allergy Verified 09/26/25 17:35 Home Medications Medication Instructions Recorded Confirmed Type allopurinol 100 mg tablet 100 mg PO QAM 09/26/25 09/26/25 History apixaban 5 mg tablet (Eliquis) 2.5 mg PO BID 09/26/25 09/26/25 History cholecalciferol (vitamin D3) 25 25 mcg PO DAILY 09/26/25 09/26/25 History mcg (1,000 unit) capsule (Vitamin D3) levothyroxine 75 mcg tablet 75 mcg PO DAILYBB 09/26/25 09/26/25 History metoprolol tartrate 25 mg tablet 25 mg PO BID 09/26/25 09/26/25 History simvastatin 40 mg tablet 40 mg PO QPM 09/26/25 09/26/25 History sitagliptin phosphate 25 mg tablet 25 mg PO QAM 09/26/25 09/26/25 History (Tasneem) Patient History Medical History Anemia Closed left hip fracture Colon cancer COVID-19 Surgical History History of repair of left hip joint History of partial colectomy Social History Smoking Status: Unknown if ever smoked Hx Alcohol Use: No Hx Substance Use: No Preferred Language: Singaporean Communication Ability: Effective Carpet Tile Layer Required: No Beliefs That Will Affect Care: None Current Living Situation: Spouse Feels Safe at Home: Yes Assistive Devices: Walker and Wheelchair Review of Systems Review of Systems: see HPI, otherwise unable to obtain due to patient's mental status and initi ation of Precedex drip. Physical Exam Constitutional: frail appearing, lying back in bed, oxygen mask in place, does not respond to voice at this time ENMT: supple, trachea midline, oxygen mask in place Respiratory: + tachypnea Cardiovascular: + irregularly irregular DP and PT pulses non-palpable Femoral pulses non-palpable right femoral central line in place Skin: + dry gangrene to right 5th toe with dus kiness to right 4th toe. Skin on right foot with erythema compared to left foot. Slight right foot edema compared to left. Neurologic: unable to determine Results & Data Vital Signs (Past 12 Hours) Vital Signs Temp Pulse Resp BP Pulse Ox O2 Del Method O2 Flow Rate 09/29/25 14:00 90 18 72 L Oxymask 15 09/29/25 14:00 97/53 L 09/29/25 13:50 101/45 L 09/29/25 13:50 101/45 L 09/29/25 13:48 80 18 76 L Oxymask 15 09/29/25 13:40 99/51 L 09/29/25 13:40 99/51 L 09/29/25 13:39 81 22 75 L 09/29/25 13:30 80 17 66 L 09/29/25 13:30 100/48 L 09/29/25 13:30 100/48 L 09/29/25 13:20 104/49 L 09/29/25 13:20 104/49 L 09/29/25 13:18 86 18 66 L 09/29/25 13:10 94/51 L 09/29/25 13:10 94/51 L 09/29/25 13:10 94/51 L 09/29/25 13:10 94/51 L 09/29/25 13:09 75 17 77 L 09/29/25 13:00 98/50 L 09/29/25 13:00 98/50 L 09/29/25 13:00 98/50 L 09/29/25 13:00 81 19 69 L Oxymask 15 09/29/25 12:50 96/50 L 09/29/25 12:50 96/50 L 09/29/25 12:50 96/50 L 09/29/25 12:50 96/50 L 09/29/25 12:48 85 18 77 L 09/29/25 12:40 100/51 L 09/29/25 12:40 100/51 L 09/29/25 12:40 100/51 L 09/29/25 12:40 100/51 L 09/29/25 12:39 78 19 78 L Oxymask 15 09/29/25 12:30 100/50 L 09/29/25 12:30 100/50 L 09/29/25 12:30 78 23 88 L Oxymask 15 09/29/25 12:20 98/53 L 09/29/25 12:20 98/53 L 09/29/25 12:18 78 18 81 L 09/29/25 12:10 97/57 L 09/29/25 12:09 83 18 09/29/25 12:00 98/54 L 09/29/25 12:00 98/54 L 09/29/25 12:00 35.7 C L 09/29/25 12:00 98/54 L 09/29/25 12:00 98/54 L 09/29/25 12:00 98/54 L 09/29/25 12:00 80 15 89 L Oxymask 15 09/29/25 11:50 90/57 L 09/29/25 11:48 80 25 H 82 L 09/29/25 11:40 100/50 L 09/29/25 11:30 84 18 82 L 09/29/25 11:30 99/52 L 09/29/25 11:30 99/52 L 09/29/25 11:20 98/48 L 09/29/25 11:20 98/48 L 09/29/25 11:18 84 19 84 L 09/29/25 11:10 96/57 L 09/29/25 11:10 96/57 L 09/29/25 11:09 78 20 84 L 09/29/25 11:00 80 18 87 L Oxymask 15 09/29/25 11:00 98/53 L 09/29/25 11:00 98/53 L 09/29/25 10:50 98/57 L 09/29/25 10:48 79 18 86 L 09/29/25 10:40 102/52 L 09/29/25 10:40 102/52 L 09/29/25 10:39 78 19 85 L 09/29/25 10:30 105/60 09/29/25 10:30 85 22 84 L 09/29/25 10:20 110/50 L 09/29/25 10:10 101/51 L 09/29/25 10:00 99/51 L 09/29/25 10:00 99/51 L 09/29/25 10:00 88 18 89 L Oxymask 15 09/29/25 09:50 96/58 L 09/29/25 09:50 96/58 L 09/29/25 09:50 96/58 L 09/29/25 09:50 96/58 L 09/29/25 09:50 96/58 L 09/29/25 09:40 98/47 L 09/29/25 09:40 98/47 L 09/29/25 09:30 86 17 09/29/25 09:30 91/55 L 09/29/25 09:30 91/55 L 09/29/25 09:20 101/55 L 09/29/25 09:20 101/55 L 09/29/25 09:18 88 19 89 L Oxymask 15 09/29/25 09:10 104/49 L 09/29/25 09:10 104/49 L 09/29/25 09:09 92 H 24 09/29/25 09:00 86 17 90 Oxymask 15 09/29/25 09:00 109/66 09/29/25 09:00 109/66 09/29/25 09:00 109/66 09/29/25 09:00 109/66 09/29/25 09:00 109/66 09/29/25 08:51 85/49 L 09/29/25 08:51 85/49 L 09/29/25 08:51 88 16 09/29/25 08:50 73/46 L 09/29/25 08:48 88 13 09/29/25 08:48 78/54 L 09/29/25 08:44 79/42 L 09/29/25 08:42 81/52 L 09/29/25 08:39 92 H 18 09/29/25 08:39 77/45 L 09/29/25 08:30 93 H 17 09/29/25 08:03 Oxymask 09/29/25 08:00 35.8 C L 09/29/25 08:00 88/59 L 09/29/25 08:00 88/59 L 09/29/25 08:00 88/59 L 09/29/25 08:00 98 H 33 H 89 L Oxymask 09/29/25 08:00 Oxymask 15 09/29/25 07:30 94 H 28 H 89 L Oxymask 09/29/25 07:30 96/60 L 09/29/25 07:30 96/60 L 09/29/25 07:30 96/60 L 09/29/25 07:20 108/52 L 09/29/25 07:20 108/52 L 09/29/25 07:20 108/52 L 09/29/25 07:00 88 35 H 88 L Oxymask 15 09/29/25 06:30 84/52 L 09/29/25 06:30 84/52 L 09/29/25 06:30 84/52 L 09/29/25 06:30 84/52 L 09/29/25 06:30 84/52 L 09/29/25 06:30 103 H 25 H 77 L 09/29/25 06:15 94 H 28 H 93 09/29/25 06:10 82/57 L 09/29/25 06:10 82/57 L 09/29/25 06:10 82/57 L 09/29/25 06:10 82/57 L 09/29/25 06:10 82/57 L 09/29/25 06:09 111 H 23 73 L 09/29/25 06:00 113 H 26 H 63 L 09/29/25 05:45 117 H 21 76 L 09/29/25 05:35 92/55 L 09/29/25 05:35 92/55 L 09/29/25 05:35 92/55 L 09/29/25 05:35 92/55 L 09/29/25 05:35 92/55 L 09/29/25 05:33 116 H 38 H 94 09/29/25 05:30 66/43 L 09/29/25 05:30 66/43 L 09/29/25 05:30 118 H 29 H 93 09/29/25 05:30 66/43 L 09/29/25 05:30 66/43 L 09/29/25 05:30 66/43 L 09/29/25 05:00 107 H 30 H 97 09/29/25 05:00 112/72 09/29/25 05:00 112/72 09/29/25 05:00 112/72 09/29/25 05:00 112/72 09/29/25 05:00 112/72 09/29/25 04:30 134/85 09/29/25 04:30 134/85 09/29/25 04:30 134/85 09/29/25 04:30 134/85 09/29/25 04:30 138 H 29 H 85 L 09/29/25 04:04 100/69 09/29/25 04:04 100/09/29/25 04:04 100/09/29/25 04:04 100/09/29/25 04:04 100/09/29/25 04:03 138 H 29 H 09/29/25 04:00 120 H 28 H 09/29/25 03:56 130/85 09/29/25 03:56 130/85 09/29/25 03:56 130/85 09/29/25 03:56 130/85 09/29/25 03:56 130/85 09/29/25 03:54 115 H 20 09/29/25 03:31 192/162 H 09/29/25 03:31 192/162 H 09/29/25 03:31 192/162 H 09/29/25 03:31 192/162 H 09/29/25 03:31 192/162 H 09/29/25 03:30 123 H 19 85 L 09/29/25 03:05 110/68 09/29/25 03:05 110/68 09/29/25 03:05 110/68 09/29/25 03:05 110/68 09/29/25 03:05 110/68 09/29/25 03:03 97 H 17 84 L 09/29/25 03:01 76/52 L 09/29/25 03:01 76/52 L 09/29/25 03:01 76/52 L 09/29/25 03:00 105 H 20 91 09/29/25 02:35 104/57 L 09/29/25 02:35 104/57 L 09/29/25 02:35 104/57 L 09/29/25 02:35 104/57 L Laboratory Results 09/28/25 17:00 Gram Stain - Final Pleural Fluid Aerobic and Anaerobic Culture - Preliminary No growth to date. 09/28/25 17:00 Acid Fast Bacilli Smear - Pending Pleural Fluid Acid Fast Bacilli Culture - Pending 09/26/25 16:11 Aerobic Blood Culture - Preliminary Blood No growth in Aerobic bottle after 48 hours. Anaerobic Blood Culture - Preliminary No growth in Anaerobic bottle after 48 hours. 09/26/25 16:11 Aerobic Blood Culture - Preliminary Blood No growth in Aerobic bottle after 48 hours. Anaerobic Blood Culture - Preliminary No growth in Anaerobic bottle after 48 hours. 09/29/25 09/29/25 09/28/25 07:40 04:54 17:19 WBC 13.47 H RBC 2.97 L Hgb 9.5 L Hct 28.3 L MCV 95.3 MCH 32.0 MCHC 33.6 RDW Std Deviation 61.4 H RDW Coeff of Leilani 18.3 H Plt Count 188 MPV 11.7 Immature Gran % (Auto) 0.7 Neut % (Auto) 84.9 Lymph % (Auto) 7.3 Power % (Auto) 5.9 Eos % (Auto) 0.8 Baso % (Auto) 0.4 Neut # (Auto) 11.44 H Lymph # (Auto) 0.98 L Power # (Auto) 0.79 H Eos # (Auto) 0.11 Baso # (Auto) 0.06 Immature Gran # (Auto) 0.09 Absolute Nucleated RBC 0.03 Nucleated RBC % (auto) 0.2 ESR PT 23.9 H INR 2.4 H APTT 44 H PTT Ratio 1.6 Sodium 128 L Potassium 4.0 Chloride 97 L Carbon Dioxide 19 L Anion Gap 12 H BUN 22 Creatinine 6.97 H* D Est Cr Clr Drug Dosing 5.6 eGFR 5.54 BUN/Creatinine Ratio 3.2 L Glucose 127 H POC Glucose 123 H Calcium 8.7 Phosphorus 5.0 H Magnesium 2.2 Total Bilirubin 2.8 H 2.9 H Direct Bilirubin 1.5 H AST 57 H ALT 23 Alkaline Phosphatase 106 H Ammonia 42.0 Lactate Dehydrogenase 167 C-Reactive Protein Total Protein 7.6 7.4 Albumin 3.1 L 2.9 L Fluid Neutrophils % Fluid Lymphocytes % Fluid Eosinophils % Fluid Basophils % Fluid Meso/Macro/Power % Fluid Comment Pleural Fluid Source Pleural Color Pleural Appearance Pleural pH Pleural WBC (Auto) Pleural RBC (Auto) Pleural Total Protein Pleural LDH Pleural Glucose Random Vancomycin 19.2 09/28/25 09/28/25 09/28/25 17:08 17:00 04:12 WBC RBC Hgb Hct MCV MCH MCHC RDW Std Deviation RDW Coeff of Leilani Plt Count MPV Immature Gran % (Auto) Neut % (Auto) Lymph % (Auto) Power % (Auto) Eos % (Auto) Baso % (Auto) Neut # (Auto) Lymph # (Auto) Power # (Auto) Eos # (Auto) Baso # (Auto) Immature Gran # (Auto) Absolute Nucleated RBC Nucleated RBC % (auto) ESR 61 H PT INR APTT PTT Ratio Sodium Potassium Chloride Carbon Dioxide Anion Gap BUN Creatinine Est Cr Clr Drug Dosing eGFR BUN/Creatinine Ratio Glucose POC Glucose 153 H Calcium Phosphorus Magnesium Total Bilirubin Direct Bilirubin AST ALT Alkaline Phosphatase Ammonia Lactate Dehydrogenase C-Reactive Protein 12.24 H Total Protein Albumin Fluid Neutrophils % 11 Fluid Lymphocytes % 66 Fluid Eosinophils % 1 Fluid Basophils % 2 Fluid Meso/Macro/Power % 20 Fluid Comment Pleural Fluid Source Right Lung Pleural Color Red Pleural Appearance Cloudy Pleural pH 7.34 Pleural WBC (Auto) 278 Pleural RBC (Auto) 24352 Pleural Total Protein < 3.0 Pleural LDH 83 Pleural Glucose 133 Random Vancomycin Diagnostic Findings Chest X-Ray 09/28/25 16:56 EXAM: Portable AP chest radiograph TECHNIQUE: AP portable radiograph of the chest was obtained. INDICATION: Shortness of breath Comparison: Chest radiograph September 26, 2025 FINDINGS: LINES and TUBES: Right subclavian vascular stent. CARDIOVASCULAR: Cardiac silhouette is stably and markedly enlarged. Atherosclerosis of the thoracic aorta. LUNGS/PLEURA: Mild interval decrease in the size of the large right pleural fluid. Subjacent right pulmonary density may represent atelectasis though difficult exclude superimposed pneumonia. Mild interstitial pulmonary edema is similar to the previous. No discernible pneumothorax. OSSEOUS/OTHER: No displaced acute osseous process identified. IMPRESSION: Mild interval decrease in the size of the large right pleural fluid. Subjacent right pulmonary density may represent atelectasis though difficult to exclude superimposed pneumonia. Electronically signed by Michael Beaver 09-28-2025 6:04 PM Arterial Duplex Bilateral Lower Extremity CLINICAL HISTORY: Reason for exam: PVD. TECHNIQUE: Real-time duplex ultrasound scan of the bilateral lower extremity arteries integrating B-mode two-dimensional vascular structure, Doppler spectral analysis and color flow Doppler imaging. COMPARISON: No relevant prior studies available. FINDINGS: Right common femoral artery: The right common femoral artery is obscured due to lines and dressings. Normal waveform. Right deep femoral artery: Right deep femoral artery, biphasic waveform, 41 cm/sec. Right superficial femoral artery: Right superficial femoral artery, monophasic waveform, 112, 100, and 57 cm/sec. Right popliteal artery: Popliteal artery, biphasic waveform, 70 and 48 cm/sec. Right calf/foot arteries: Right posterior tibial artery, biphasic waveform, 63 cm/sec proximal, 69 cm/sec mid, and 19 cm/sec with monophasic flow distally. Right anterior tibial artery, monophasic waveform, 13, 17, and 9 cm/sec. Right dorsalis pedis artery, not visible. Right peroneal artery, monophasic waveform, 11 and 12 cm/sec. Left common femoral artery: Left common femoral artery, monophasic waveform, 136 cm/sec. Left deep femoral artery: Left deep femoral artery, monophasic waveform, 99 cm/sec. Left superficial femoral artery: Left superficial femoral artery, monophasic waveform, 46, 81, 219, and 63 cm/sec. Left popliteal artery: Left popliteal artery, monophasic waveform, 47 and 23 cm/sec. Left calf/foot arteries: Left anterior tibial artery, monophasic waveform, 29 and 21 cm/sec. Left peroneal artery, monophasic waveform, 21 and 15 cm/sec. Left posterior tibial artery, monophasic waveform, 10- 20 cm/sec. Left dorsalis pedis artery, monophasic waveform, 10 cm/sec. Soft tissues: Unremarkable. 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 Elevated velocity in the proximal to mid left superficial femoral artery of 218 cm/sec consistent with at least 50-74% stenosis. Monophasic flow with slow velocities in the calf vessels as described above bilaterally. Consider arterial insufficiency. Electronically signed by: Nikko Farooq MD 09/27/25 23:20 PM Medications Administered Home Medications Medication Instructions Recorded Confirmed Last Taken allopurinol 100 mg tablet 100 mg PO QAM 09/26/25 09/26/25 09/26/25 apixaban 5 mg tablet (Eliquis) 2.5 mg PO BID 09/26/25 09/26/25 09/26/25 08:00 cholecalciferol (vitamin D3) 25 25 mcg PO DAILY 09/26/25 09/26/25 09/26/25 mcg (1,000 unit) capsule (Vitamin D3) levothyroxine 75 mcg tablet 75 mcg PO DAILYBB 09/26/25 09/26/25 09/26/25 metoprolol tartrate 25 mg tablet 25 mg PO BID 09/26/25 09/26/25 09/26/25 08:00 simvastatin 40 mg tablet 40 mg PO QPM 09/26/25 09/26/25 09/25/25 sitagliptin phosphate 25 mg tablet 25 mg PO QAM 09/26/25 09/26/25 09/26/25 (Tasneem) Active Medications Generic Name Dose Route Start Last Admin Trade Name Freq PRN Reason Stop Dose Admin Norepinephrine Bitartrate 4 mg in 250 mls @ 18.008 mls/hr 09/26/25 18:45 09/29/25 08:50 Levophed/D5w IV 10/26/25 18:44 0.07 mcg/kg/min .[id number] MARIANELA 18 mls/hr Titration Protocol 0.07 MCG/KG/MIN Vasopressin 20 units/ Sodium 101 mls @ 12.12 mls/hr 09/27/25 00:15 09/29/25 07:05 Chloride IV 10/27/25 00:14 0.04 unit/min .Q8H20M MARIANELA 12.1 mls/hr Administration 0.04 UNIT/MIN Piperacillin Sod/Tazobactam Sod 4.5 gm in 100 mls @ 25 mls/hr 09/28/25 18:00 09/29/25 08:55 Zosyn IV 09/30/25 17:59 Infused Q12H MARIANELA Infusion Protocol Dexmedetomidine/Sodium Chloride 200 mcg in 50 mls @ 20.91 mls/hr 09/29/25 04:15 09/29/25 13:55 Precedex IV 10/03/25 04:14 1.2 mcg/kg/hr .Q2H24M MARIANELA 20.9 mls/hr Administration Protocol 1.2 MCG/KG/HR Levothyroxine Sodium 75 mcg 09/27/25 06:30 09/29/25 05:21 Levothyroxine Sodium 75 Mcg Tablet PO 10/27/25 06:29 Not Given DAILYBB MARIANELA Simvastatin 40 mg 09/26/25 21:00 09/28/25 20:29 Simvastatin 40 Mg Tab PO 10/26/25 20:59 Not Given QPM MARIANELA Vancomycin HCl 125 mg 09/28/25 11:30 09/29/25 08:39 Vancomycin Hcl 125 Mg Cap PO 10/08/25 11:29 Not Given DAILY MARIANELA PG Care Time/CCT Total # of Minutes Spent Total Time Spent with Patient: Total time spent is greater than 50% in coordination of care (as documented) at patient's floor/unit and/or counseling patient: [place] [address] INT INP/OBS CARE 2/55MIN Patient Type New History Detailed Exam Detailed Medical Decision Making Moderate Complexity Diagnoses Gangrene due to peripheral vascular disease I73.9 Gangrene of toe of right foot I96
[2025-09-29] MEDS ORDERED: ACETAMINOPHEN 650 MG SUPP PR PRN (17:26)
[2025-09-29] MEDS ORDERED: ONDANSETRON INJ 2 MG/ML 2 ML VIAL IV PRN (17:26)
[2025-09-29] MEDS ORDERED: GLYCOPYRROLATE 0.2 MG/ML VIAL IV PRN (17:26)
[2025-09-29] MEDS ORDERED: LORazepam Inj 0.5 MG in SYRINGE 0.25 ML IV PRN (17:26)
[2025-09-29] MEDS: MoRPHine SULFATE 10 MG/0.5 ML UDP PO PRN (21:23)
--- NOTE | 2025-09-30 02:40 | Death Pronouncement Note ---
Date of Service September 30, 2025 Pronouncement Note Admission Date September 26, 2025 Date and Time of Date of : 09/30/25 Time of : 02:14 Preliminary Cause of (1) Shock circulatory: (2) ESRD on hemodialysis: (3) Sepsis with multiple organ dysfunction (MOD): (4) Gangrene due to peripheral vascular disease: Contributing Factors Pulmonary hypertension, afib, Right ventricular failure Summary PRONOUNCEMENT NOTE - Date: 09/30/25 Time: 213 I was contacted by nursing staff regarding the patients rhythm of asystole at 213 and for pronouncement following palliative care withdraw of life sustaining measures earlier in day. In short, 80 YOF with ESRD - presents hypotensive with concern of septic shock with multiorgan dysfunction what appears as new right sided pleural effusion, on Eliquis for Afib. Requiring vasopressor support. Patient remained with significant vasopressor requirements, increasing oxygen requirements, metabolic encephalopathy and delirium. Dialysis was not able to be attempted secondary to her hemodyanmic instability, patient and family declined transfer for such measures, in light of her multiple co-morbidities and gangrenous toe with poor arterial supply. She was made comfort care only on 09/29/25 and ceased to breathe or have a pluse on 09/30/25. Assessment: I presented to the patients room for evaluation. Upon assessment, the patient was found to be in a terminal state. Pupils were fixed and dilated without response. No palpable pulses appreciated. No spontaneous breaths noted. Heart sounds were absent. No response to painful stimuli. Time of : 214 as pronounced by myself. Family was not present at bedside. Sujata (daughter) was informed at 216 by KARMEN Calero via telephone. Condolences provided. Patients primary service was contacted and made aware of patient demise- L[facility] Armas - informed Pronouncement section of the Certificate was filled out and signed by myself. Cause of : Primary - shock Secondary - ESRD Contributing Causes of - as above Please feel free to contact me with any questions regarding the above-mentioned course. Additional Data Attending physician: Cristino Martins DO
== END 2025-09-30 02:14 | disposition expired | DRG 871 ==
LOC: ED 14:59 → SUATTDRO 19:22 → 1E 19:22